=== PATIENT | female | born 1945 | race Caucasian/White ===

== ENCOUNTER 2021-03-18 22:26 | Emergency (ER) | payer MEDICARE, SELFPAY ==
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
--- NOTE | ~2021-03-18 | XR_ITS ---
EXAMINATION: XR chest 1V portable DATE: 03/18/2021 23:00 INDICATION: Shortness of breath TECHNIQUE: frontal view of the chest was obtained. 6 COMPARISON: Chest radiograph dated 08/25/2017 FINDINGS: Lung volumes are small with coarse reticular opacities scattered in the bilateral mid and lower lung zones which appear similar in extent and distribution to earlier CT dated 11/21/2013 where there is as sociated peripheral honeycombing consistent with usual interstitial pneumonia (UIP) pattern chronic i nterstitial lung disease. These appear more prominent than on the prior study which could represent e ither interval progression or superimposed more acute mild pulmonary edema or pneumonia. No pleural e ffusion or pneumothorax. Cardiomediastinal silhouette is within normal limits for AP technique. Tania cystectomy clips in right upper quadrant. Mild thoracic dextrocurvature with mild spondylosis. IMPRESSION: 1. Small lung volumes with chronic coarse reticular opacities in the bilateral mid and lower lung zon es consistent with chronic interstitial lung disease which demonstrated a UIP pattern on prior CT. Th is appears increased since the prior study which could represent either progression or superimposed p ulmonary edema or pneumonia. Reviewed, dictated and finalized at location A. IMPRESSION: 1. Small lung volumes with chronic coarse reticular opacities in the bilateral mid and lower lung zones consistent with chronic interstitial lung disease whic h demonstrated a UIP pattern on prior CT. This appears increased since the prio r study which could represent either progression or superimposed pulmonary iwona a or pneumonia.
[2021-03-18 22:28] VITALS: BP 147/90; PULSE 94; RESP 18; TEMP 36.6; O2SAT 95
[2021-03-18 23:17] LABS: Basophils Absolute Auto 0.1 K/mm3 (0.0-0.1); Basophils Percent Auto 0.9 % (0.2-1.2); Eosinophils Absolute Auto 0.4 K/mm3 (0-0.3); Eosinophils Percent Auto 4.8 % (0-4.4); Hematocrit 42.6 % (37.0-47.0); Hemoglobin 14.4 g/dL (12.0-15.0); Immature Granulocyte Absolute 0.03 K/mm3 (0.00-0.031); Immature Granulocyte Percent A 0.4 % (0-0.5); Lymphocytes Percent Auto 30.2 % (18.3-44.2); Mean Corpuscular HGB Conc 33.8 g/dl (32-36); Mean Corpuscular Hemoglobin 31.8 pg (26-34); Mean Platelet Volume 11.3 fl (7.4-10.4); Monocytes Absolute Auto 0.8 K/mm3 (0.1-0.6); Monocytes Percent Auto 9.8 % (2.6-8.5); Neutrophils Absolute Auto 4.3 K/mm3 (1.3-6.7); Neutrophils Percent Auto 53.9 % (45.5-73.1); Platelet Count Result 177 k/mm3 (150-375); Red Blood Count 4.53 M/mm3 (4.2-5.4); Red Cell Distribution Width 12.1 % (11.5-14.5); White Blood Count 7.9 K/mm3 (4.5-10.0)
[2021-03-18 23:26] LABS: Alanine Aminotransferase 17 U/L (4-35); Alkaline Phosphatase 67 U/L (38-126); Anion Gap 10 mmol/L (8-16); Aspartate Amino Transferase 35 U/L (14-36); Bilirubin,Total 0.6 mg/dL (0.2-1.3); Blood Urea Nitrogen 17 mg/dL (7-17); Calcium 9.3 mg/dL (8.4-10.2); Carbon Dioxide 23 mmol/L (22-30); Chloride 108 mmol/L (98-107); Estimated CRCL calculation 33 ml/min; Estimated Glomerular Filt Rate 40; Glucose 103 mg/dL (65-105); Potassium 4.3 mmol/L (3.4-5.0); Sodium 141 mmol/L (137-145)
[2021-03-18 23:30] LABS: INR 0.9; Partial Thromboplastin Time 26.3 SECONDS (22.3-36.8); Prothrombin Time 12.7 Seconds (11.1-14.7)
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
[2021-03-19] MEDS: SODIUM CHLORIDE 0.9% IV 500 ML 999 ML IV CONT (00:10)
[2021-03-19 00:59] LABS: Add Urine Microscopic? YES; Appearance Urine Clear (Clear); Bacteria Urine Trace /hpf; Bilirubin Urine Negative (Negative); Blood Urine Negative (Negative); Color Urine Straw (Yellow); Glucose Urine UA Negative (Negative); Ketones Urine Negative (Negative); Leukocyte Esterase Ur 1+ LEU/UL (Negative); Nitrate Urine Negative (Negative); Protein Urine Negative (Negative); RBC Urine 0-2 /hpf (0-2); Specific Grav Ur 1.012 (1.001-1.035); Squamous Epithelial Cell Urine Few /hpf (Few)
[2021-03-19] MEDS: KETOROLAC 15 MG/ML VIAL (*BKC) IV PUSH (01:08)
[2021-03-19 02:17] VITALS: BP 136/84; PULSE 78; RESP 16; TEMP 36.8; O2SAT 98
== END 2021-03-19 02:18 | disposition home or self-care (01) ==
PROVIDERS: Emergency Provider General Practice; PCP Internal Medicine
DX: R51.9 Headache, unspecified (principal); N39.0 Urinary tract infection, site not specified; J44.9 Chronic obstructive pulmonary disease, unspecified; I10 Essential (primary) hypertension; Z87.820 Personal history of traumatic brain injury; J84.10 Pulmonary fibrosis, unspecified
CPT/HCPCS: 36415; 70450; 71045; 80053; 81001; 85025; 85610; 85730; 87077; 87086; 87088; 87186; 96361; 96365; 96375; 99284; J0131; J1885; J7040

== ENCOUNTER 2023-07-14 16:32 | Emergency (ER) | payer MEDICARE, SELFPAY ==
[2023-07-14] VITALS (7 sets, daily range): BP systolic 168–201; BP diastolic 79–98; PULSE 70–91; RESP 14–21; TEMP 35.8; O2SAT 95–100
--- NOTE | ~2023-07-14 | XR_ITS ---
EXAMINATION: XR chest 2V Exam Date/Time: 07/14/2023 18:12 CDT HISTORY: SOB Comparison: . RESULT: Lines, tubes, and devices: Ringlike radiopacity seen only in the lateral view may represent a displa sharee gastric band or external artifact. Cholecystectomy clips. Lungs and pleura: Moderate diffuse reticular opacities. No focal consolidation. Cardiomediastinal silhouette: Stable. Other: No acute osseous or upper abdominal finding. IMPRESSION: No acute cardiopulmonary process. Moderate chronic interstitial lung disease. Reviewed, dictated and finalized at location K.
--- NOTE | 2023-07-14 17:36 | ECG_ITS ---
Measurements Intervals [place] Rate: 71 P: 65 MN: 227 QRS: -35 QRSD: 114 T: -3 QT: 371 QTc: 403 Interpretive Statements SINUS RHYTHM WITH SINUS ARRHYTHMIA WITH FIRST DEGREE AV BLOCK LEFT AXIS DEVIATION [QRS AXIS < -30] PATTERN CONSISTENT WITH PULMONARY DISEASE MODERATE INTRAVENTRICULAR CONDUCTION DELAY [110+ ms QRS DURATION] VOLTAGE CRITERIA FOR LVH [MEETS CRITERIA IN ONE OF: R(aVL), S(V1), R(V5), R(V5/V6)+S(V1)] NO PREVIOUS ECG AVAILABLE FOR COMPARISON Electronically Signed On 07-14-2023 19:28:43 CDT by Tari Briones M.D.
[2023-07-14 19:03] LABS: Basophils Absolute Auto 0.1 K/mm3 (0.0-0.1); Basophils Percent Auto 0.8 % (0.2-1.2); Eosinophils Absolute Auto 0.3 K/mm3 (0-0.3); Eosinophils Percent Auto 4.1 % (0-4.4); Hematocrit 36.9 % (37.0-47.0); Hemoglobin 10.5 g/dL (12.0-15.0); Immature Granulocyte Absolute 0.01 K/mm3 (0.00-0.031); Immature Granulocyte Percent A 0.1 % (0-0.5); Lymphocytes Absolute Auto 1.74 K/mm3 (0.9-3.2); Mean Corpuscular HGB Conc 28.5 g/dl (32-36); Mean Corpuscular Hemoglobin 26.1 pg (26-34); Mean Corpuscular Volume 91.6 fl (80-100); Mean Platelet Volume 10.7 fl (7.4-10.4); Monocytes Absolute Auto 0.6 K/mm3 (0.1-0.6); Monocytes Percent Auto 8.1 % (2.6-8.5); Neutrophils Absolute Auto 4.8 K/mm3 (1.3-6.7); Neutrophils Percent Auto 63.9 % (45.5-73.1); Platelet Count Result 173 k/mm3 (150-375); Red Blood Count 4.03 M/mm3 (4.2-5.4); Red Cell Distribution Width 13.4 % (11.5-14.5); White Blood Count 7.6 K/mm3 (4.5-10.0)
[2023-07-14 19:17] LABS: Alanine Aminotransferase 15 U/L (6-35); Albumin Level 4.2 g/dL (3.5-5.1); Alkaline Phosphatase 73 U/L (38-126); Anion Gap 6 mmol/L (8-16); Aspartate Amino Transferase 28 U/L (14-36); Bilirubin,Total 0.6 mg/dL (0.2-1.3); Blood Urea Nitrogen 16 mg/dL (7-17); Calcium 8.8 mg/dL (8.4-10.2); Carbon Dioxide 25 mmol/L (22-30); Chloride 106 mmol/L (98-107); Estimated CRCL calculation 49 ml/min; Estimated Glomerular Filt Rate > 60; Glucose 92 mg/dL (65-110); Potassium 4.1 mmol/L (3.4-5.0); Sodium 137 mmol/L (137-145)
[2023-07-14 19:46] LABS: Hypochromasia 1+ (NORMAL); Platelet Estimate Adequate (Adequate); Schistocytes None Seen (NORMAL)
[2023-07-14] MEDS: ALBUTEROL SULFATE NEB 2.5 MG/3 ML INH 5 MG INHALATION (21:56)
[2023-07-14] MEDS: IPRATROPIUM BR 0.02% INH SOLN 0.5 MG/2.5 ML VIAL INHALATION (21:58)
[2023-07-14 22:05] LABS: NT Pro B Type Natriuretic Pept 242 pg/mL (19.9-100); Troponin I < 0.012 ng/mL (0.000-0.034)
[2023-07-14 22:07] LABS: Appearance Urine Cloudy (Clear); Bacteria Urine 4+ /hpf; Bilirubin Urine Negative (Negative); Blood Urine Negative (Negative); Color Urine Yellow (Yellow); Glucose Urine UA Negative (Negative); Ketones Urine Trace mg/dL (Negative); Leukocyte Esterase Ur 1+ LEU/UL (Negative); Nitrate Urine Positive (Negative); Non Pathogenic Casts 0-2; Protein Urine Negative (Negative); RBC Urine 0-2 /hpf (0-2); Specific Grav Ur 1.016 (1.001-1.035); Squamous Epithelial Cell Urine None seen /hpf (Few); pH Urine 7.5 (5.0-9.0)
[2023-07-14] MEDS: SODIUM CHLORIDE 0.9% IV 1,000 ML 999 ML IV CONT (22:13)
[2023-07-14 22:15] LABS: Add Urine Microscopic? YES
[2023-07-14 22:37] LABS: Influenza A QL RT-PCR Negative (Negative); Influenza B QL RT-PCR Negative (Negative); RSV RNA, RT-PCR Negative (Negative); SARS-CoV-2 RNA PCR Negative (Negative)
--- NOTE | 2023-07-14 23:35 | ED.GENADULT ---
HPI - General Adult General Chief complaint: Shortness of Breath/Dyspnea Stated complaint: SOB, headache Time Seen by Provider: 07/14/23 21:28 History of Present Illness HPI narrative: this is a 70-year-old female presenting ED with chief complaint of not feeling well x3 months. Patient says that she has been having decreased appetite, occasional dizziness and has been slightly more short of breath than usual. 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 Patient also notes that she has had increased urinary urgency and frequency. Patient was seen at the primary care physician earlier today and was found have high blood pressure. She was then sent to the emergency department for evaluation Related Data Allergies Allergy/AdvReac Type Severity Reaction Status Date / Time fenofibrate Allergy Mild Unknown Verified 07/14/23 21:02 erythromycin base Allergy Unknown STOMACH Verified 07/14/23 21:02 PAIN trichloroacetic acid Allergy Unknown Unknown Verified 07/14/23 21:02 morphine AdvReac Severe Nausea and Verified 07/14/23 21:02 Vomiting PMFSH Past Medical History Medical History COPD (chronic obstructive pulmonary disease) Hypertension Pulmonary fibrosis Traumatic brain injury Surgical History Surgical History (Updated 03/18/21 @ 23:35 by Nalini Prado MD) Hx of cholecystectomy Social History Social History Smoking status: Never smoker Alcohol intake: never Substance use: never Exam Narrative: APPEARANCE: No apparent distress. Head: atraumatic. EYES: EOMI, NOSE: Atraumatic NECK: Trachea midline RESPIRATORY: no increased rate of breathing, speaking in full sentences, crackles in the lung bases CARDIOVASCULAR: RRR, no peripheral edema ABDOMINAL: Non-distended soft nontender no guarding or rebound MUSCULOSKELETAl: No obvious deformities NEURO: Alert. Moving 4/4 extremities SKIN:: Warm, dry. Normal color PSYCHIATRIC: Normal affect Course Vital Signs Vital signs: Vital Signs Temperature 96.4 F L 07/14/23 17:28 Pulse Rate 85 07/14/23 17:28 Respiratory Rate 14 07/14/23 17:28 Blood Pressure 168/79 H 07/14/23 17:28 Pulse Oximetry 100 07/14/23 17:28 Oxygen Delivery Room Air 07/14/23 17:28 Temperature 96.4 F L 07/14/23 17:28 Pulse Rate 85 07/14/23 23:27 Respiratory Rate 17 07/14/23 23:27 Blood Pressure 177/90 H 07/14/23 23:27 Pulse Oximetry 96 07/14/23 23:27 Oxygen Delivery Room Air 07/14/23 20:54 Medical Decision Making MDM Narrative Medical decision making narrative: -Course: 70-year-old female presenting with 3 months of vague symptomatology. She does have some crackles in her lower lung bases which are likely due to her pulmonary fibrosis. Patient was given a breathing treatment with improvement in her symptoms. She is also found to have a urinary tract infection. Patient be discharged appropriate treatment and primary care follow-up. -DDX includes but is not limited to: COPD exacerbation,, pulmonary fibrosis, viral syndrome, pneumonia, urinary tract infection - factors complicating care: COPD, pulmonary fibrosis, hypertension, TBI -Social determinants of health: retired, lives with her daughter -Hx from independent Sources: daughter bedside -Independent interpretation of studies: CBC showed hemoglobin 10.5 with a normal MCV. This is 4 points lower than are latest record from 2 years ago. This can follow-up on an outpatient basis. Metabolic panel normal. Urine indicative of infection. Viral swabs negative. Chest x-ray shows chronic interstitial lung disease. Independent EKG interpretation: Rhythm [sinus], Rate [71], Thor -[normal], MD -prolonged, QRS [narrow], QTC [normal], T waves -lead III/AVF, ST Segments - [Negative for concerning elevations] Final interpretations: Normal sinu
[2023-07-15 00:24] VITALS: BP 175/73; PULSE 77; RESP 19; O2SAT 100
== END 2023-07-15 00:24 | disposition home or self-care (01) ==
PROVIDERS: Student in an Organized Health Care Education/Training Program; Emergency Provider Emergency Medicine; PCP Nurse Practitioner Family
DX: J44.9 Chronic obstructive pulmonary disease, unspecified (principal); N39.0 Urinary tract infection, site not specified; D64.9 Anemia, unspecified; Z20.822 Contact with and (suspected) exposure to COVID-19; J84.10 Pulmonary fibrosis, unspecified; I10 Essential (primary) hypertension; Z87.820 Personal history of traumatic brain injury; Z90.49 Acquired absence of other specified parts of digestive tract; I44.0 Atrioventricular block, first degree; I45.9 Conduction disorder, unspecified
CPT/HCPCS: 36415; 71046; 80053; 81001; 83880; 84484; 85025; 87077; 87086; 87186; 87637; 93005; 94640; 96361; 96374; 99284; J1100; J7030

== ENCOUNTER 2023-10-06 08:57 | Observation (INO) | payer MEDICARE, SELFPAY ==
[2023-10-06] VITALS (39 sets, daily range): BP systolic 122–184; BP diastolic 60–84; PULSE 64–107; RESP 13–30; TEMP 36.4–36.7; O2SAT 91–100
--- NOTE | ~2023-10-06 | CT_ITS ---
EXAMINATION: CT cervical spine wo con DATE: 10/06/2023 10:01 INDICATION: Neck pain after fall there is levoscoliosis. TECHNIQUE: Computed tomography (CT) of the cervical spine was performed without intravenous contrast. The dose-length product was 192 mGy-cm. COMPARISON: None FINDINGS: Normal cervical lordosis. Craniovertebral junction is normal. No evidence for perched facet . Odontoid process is normal. There is degenerative anterolisthesis at C5-6, C6-7 and C7-T1 there is multilevel facet and to a lesser degree uncinate hypertrophy. There is pleural-parenchymal scarring a t the lung apices. No significant paraspinal soft tissue abnormality.. IMPRESSION: 1. No acute abnormality of the cervical spine. 2: Moderate cervical spondylosis with levoscoliosis. Reviewed, dictated and finalized at location B. CHER
--- NOTE | ~2023-10-06 | CT_ITS ---
EXAMINATION: CT abdomen pelvis w con DATE: 10/06/2023 10:47 INDICATION: Flank pain. Hip pain. TECHNIQUE: Computed tomography (CT) of the abdomen and pelvis was performed with 100 cc Omnipaque 350 intravenous contrast. The dose-length product was 372.01 mGy-cm. Automated exposure control and iter ative reconstruction technique were employed. COMPARISON: 08/26/2012 FINDINGS: There is chronic interstitial fibrosis in the lung bases. Enlarged pulmonary arteries consi stent with pulmonary arterial hypertension. No significant pleural or pericardial effusion. Status po st cholecystectomy with expected prominence of the bile ducts. The spleen, pancreas, adrenal glands a nd kidneys are unremarkable. Nonobstructive bowel pattern. No abnormal pelvic masses or fluid collect ions. Mild superior plate compression fracture of L3 and L2, likely chronic. Mild thoracic and lumbar spondylosis. There is a small exophytic liver cyst containing layering calcification, likely of no s ignificance significance. IMPRESSION: 1. No acute abdominal abnormality. 2: Chronic interstitial fibrosis with pulmonary arterial hypertension. Reviewed, dictated and finalized at location B. ATTENDANT
--- NOTE | ~2023-10-06 | XR_ITS ---
XR chest 1V 10/06/2023 09:55 Indication: Status post fall. Procedure: AP portable chest Comparison: Comparison to multiple prior studies sequentially, with oldest reviewed study dated 08/11. Findings: Chronic coarse bilateral interstitial infiltrates. Possible small effusions. Stable mild ca rdiomegaly. No pneumothorax. No acute osseous abnormality. Impression: 1: Stable coarse bilateral interstitial infiltrates which may represent scarring/fibrosis or atypical pneumonia. Reviewed, dictated and finalized at location B. R/OPERATOR Impression: 1: Stable coarse bilateral interstitial infiltrates which may represent scarrin g/fibrosis or atypical pneumonia.
--- NOTE | ~2023-10-06 | XR_ITS ---
XR hip RT 2V w AP pelvis 10/06/2023 09:55 Indication: Right hip pain after fall Procedure: AP pelvis and 2 views right hip Comparison: No prior studies for comparison. Findings: Mild osteoarthritis of the hips. No fracture or traumatic malalignment. Pelvic rings are in tact. Sacral foramen are symmetric. Impression: 1: No acute fracture. Reviewed, dictated and finalized at location B. S PULLER Impression: 1: No acute fracture.
--- NOTE | ~2023-10-06 | CT_ITS ---
EXAMINATION: CT thoracic lumbar wo con DATE: 10/06/2023 10:01 INDICATION: Back pain after fall TECHNIQUE: Computed tomography (CT) of the thoracic and lumbar spine was performed without intravenou s contrast. The dose-length product was 1458.12 mGy-cm. Automated exposure control and iterative alonso nstruction technique were employed. COMPARISON: CT dated 11/21/2013 FINDINGS: Thoracic spine: There is dextroscoliosis. Mild multilevel thoracic spondylosis. No acute thoracic spi ne fracture. There are coarse interstitial infiltrates peripherally with interlobular septal thickeni ng and honeycombing, consistent with chronic fibrosis. There is atherosclerosis of the aorta and barbara nary arteries. Lumbar spine: There are mild superior endplate compression fractures of L2 and L3. There is disc narr owing at L4-5 and L5-S1. There is levoscoliosis. IMPRESSION: 1. Age-indeterminate superior endplate compression fractures of L2 and L3, new since CT dated 012. 2: Moderate thoracic and lumbar spondylosis with scoliosis. 3: Chronic interstitial fibrosis. Reviewed, dictated and finalized at location B. RATION CHECKER IMPRESSION: 1. Age-indeterminate superior endplate compression fractures of L2 and L3, new since CT dated 08/26/2012. 2: Moderate thoracic and lumbar spondylosis with scoliosis. 3: Chronic interstitial fibrosis.
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
--- NOTE | 2023-10-06 09:04 | ECG_ITS ---
Measurements Intervals [place] Rate: 80 P: 21 CT: 217 QRS: -35 QRSD: 111 T: 127 QT: 361 QTc: 418 Interpretive Statements SINUS RHYTHM WITH FIRST DEGREE AV BLOCK MARKED LEFT AXIS DEVIATION [QRS AXIS < -30] MODERATE INTRAVENTRICULAR CONDUCTION DELAY [110+ ms QRS DURATION] VOLTAGE CRITERIA FOR LVH [MEETS CRITERIA IN ONE OF: R(aVL), S(V1), R(V5), R(V5/V6)+S(V1)] MODERATE T-WAVE ABNORMALITY, CONSIDER LATERAL ISCHEMIA [-0.1+ mV T WAVE IN I/aVL/V5/V6] COMPARED TO ECG 07/14/2023 18:54:26 NO SIGNIFICANT CHANGES Electronically Signed On 10-06-2023 20:52:03 REEL TENDER by [place] Humphrey M.D.
--- NOTE | 2023-10-06 09:21 | ED.FALL ---
HPI - Fall General Chief Complaint: Fall <Kailey Romero PA-C - Last Filed: 10/06/23 13:40> Stated Complaint: fall - hip and back pain <NEETU Davalos Last Filed: 10/06/23 13:40> Time Seen by Provider: 10/06/23 09:07 <Kailey Romero PA-C - Last Filed: 10/06/23 13:40> Source: patient and family <NEETU Davalos Last Filed: 10/06/23 13:40> Mode of arrival: EMS <NEETU Davalos Last Filed: 10/06/23 13:40> Limitations: other (history of TBI) <NEETU Davalos Last Filed: 10/06/23 13:40> History of Present Illness HPI Narrative: This is a 78 year old female that presents to the ER after a fall last night. Reports she felt dizzy and ran into the door jam. Reports falling onto her right side. Reports right hip pain and back pain. Her got her into bed last night and gave her some Ibuprofen. She was stilling having discomfort this morning which prompted him to call EMS. She is not able to further describe her dizziness. Denies fever, chest pain, shortness of breath, vomiting, focal numbness or weakness. <NEETU Davalos Last Filed: 10/06/23 13:40> Related Data Home Medications: Home Medications Medication Instructions Recorded Confirmed atorvastatin 10 mg tablet mg 10/06/23 <NEETU Davalos Last Filed: 10/06/23 13:40> Allergies/Adverse Reactions: Allergies Allergy/AdvReac Type Severity Reaction Status Date / Time fenofibrate Allergy Mild Unknown Verified 10/06/23 16:18 erythromycin base Allergy Unknown STOMACH Verified 10/06/23 16:18 PAIN trichloroacetic acid Allergy Unknown Unknown Verified 10/06/23 16:18 morphine AdvReac Severe Nausea and Verified 10/06/23 16:18 Vomiting <NEETU Davalos Last Filed: 10/06/23 13:40> Review of Systems Review of Systems: CONSTITUTIONAL: Denies fever CARDIOVASCULAR: Denies chest pain, palpitations, or edema. RESPIRATORY: Denies dyspnea. GASTROINTESTINAL: Denies vomiting MUSCULOSKELETAL: Reports back pain, joint pain, and myalgia. NEUROLOGIC: Denies numbness, or weakness. <Kailey Romero PA-C - Last Filed: 10/06/23 13:40> All systems reviewed & are unremarkable except as noted in HPI and below <Kailey Romero PA-C - Last Filed: 10/06/23 13:40> PMFSH Past Medical History Medical History: Medical History COPD (chronic obstructive pulmonary disease) Hypertension Pulmonary fibrosis Traumatic brain injury <NEETU Davalos Last Filed: 10/06/23 13:40> Surgical History Surgical History: Surgical History (Updated 03/18/21 @ 23:35 by Nalini Prado MD) Hx of cholecystectomy <Kailey Romero PA-C - Last Filed: 10/06/23 13:40> Social History Social History: Social History Smoking status: Never smoker Alcohol intake: never Substance use: never Do You Feel Safe in your Home?: Yes Lack of Transportation: YES Lack of Food: Never True Current Housing: I Have Housing Concerned About Future Housing: No Difficulty Paying Gas/Electric Bills: No Difficulty Paying for Meds: No Currently Unemployed: No Education: High School Diploma/GED Difficulty w/ Childcare or Family Care: No Spiritual care concerns: No <Kailey Romero PA-C - Last Filed: 10/06/23 13:40> Exam Narrative: GENERAL: Elderly, well-nourished, and in no acute distress. HEAD: Normocephalic, atraumatic. EYES: PERRLA and EOMI. ENT: Nares clear, no rhinorrhea or epistaxis. Mucous membranes moist. Oropharynx without tonsillar hypertrophy exudate or other lesions. Bilateral TMs pearly robert non-bulging NECK: Supple. No adenopathy or masses. CHEST: Clear to auscultation. No respiratory distress. No wheezes rales or rhonchi HEART: Regular rate and rhythm. No murmur heard. Normal peripheral pulses. ABDOMEN: Soft, nontender, nondistende
[2023-10-06 10:09] LABS: Basophils Percent Auto 0.3 % (0.2-1.2); Eosinophils Absolute Auto 0.1 K/mm3 (0-0.3); Eosinophils Percent Auto 1.3 % (0-4.4); Hematocrit 38.5 % (37.0-47.0); Hemoglobin 12.4 g/dL (12.0-15.0); Immature Granulocyte Absolute 0.03 K/mm3 (0.00-0.031); Immature Granulocyte Percent A 0.3 % (0-0.5); Lymphocytes Absolute Auto 0.86 K/mm3 (0.9-3.2); Lymphocytes Percent Auto 9.6 % (18.3-44.2); Mean Corpuscular HGB Conc 32.2 g/dl (32-36); Mean Corpuscular Volume 90.2 fl (80-100); Mean Platelet Volume 10.2 fl (7.4-10.4); Monocytes Absolute Auto 0.6 K/mm3 (0.1-0.6); Monocytes Percent Auto 6.6 % (2.6-8.5); Neutrophils Absolute Auto 7.4 K/mm3 (1.3-6.7); Neutrophils Percent Auto 81.9 % (45.5-73.1); Platelet Count Result 148 k/mm3 (150-375); Red Blood Count 4.27 M/mm3 (4.2-5.4); Red Cell Distribution Width 15.8 % (11.5-14.5)
[2023-10-06 10:20] LABS: Alanine Aminotransferase 15 U/L (6-35); Albumin Level 3.5 g/dL (3.5-5.1); Alkaline Phosphatase 84 U/L (38-126); Anion Gap 6 mmol/L (8-16); Aspartate Amino Transferase 28 U/L (14-36); Bilirubin,Total 0.9 mg/dL (0.2-1.3); Blood Urea Nitrogen 12 mg/dL (7-17); Calcium 8.8 mg/dL (8.4-10.2); Carbon Dioxide 27 mmol/L (22-30); Chloride 104 mmol/L (98-107); Estimated CRCL calculation 49 ml/min; Estimated Glomerular Filt Rate > 60; Glucose 106 mg/dL (65-110); Potassium 3.9 mmol/L (3.4-5.0); Sodium 137 mmol/L (137-145)
[2023-10-06 10:21] LABS: Partial Thromboplastin Time 28.2 SECONDS (22.3-36.8)
[2023-10-06 10:49] LABS: Appearance Urine Clear (Clear); Bilirubin Urine Negative (Negative); Blood Urine Negative (Negative); Color Urine Yellow (Yellow); Glucose Urine UA Negative (Negative); Ketones Urine 1+ mg/dL (Negative); Leukocyte Esterase Ur Negative LEU/UL (Negative); Nitrate Urine Negative (Negative); Protein Urine Negative (Negative); Specific Grav Ur 1.019 (1.001-1.035); Urobilinogen Urine 0.2 mg/dL (<2.0); pH Urine 7.5 (5.0-9.0)
[2023-10-06 10:50] LABS: Add Urine Microscopic? NO
[2023-10-06 10:50] LABS: Influenza A QL RT-PCR Negative (Negative); Influenza B QL RT-PCR Negative (Negative); SARS-CoV-2 RNA PCR Negative (Negative)
[2023-10-06] MEDS: PROCHLORPERAZINE EDISYLATE 10 MG/2 ML VIAL IV PUSH (10:54)
[2023-10-06] MEDS: HYDROcodone/acetaminophen (*CRX) 5-325 MG TABLET 1 TAB PO (11:38)
[2023-10-06] MEDS: ACETAMINOPHEN 325 MG TABLET 650 MG PO (11:39)
--- NOTE | 2023-10-06 14:51 | PC.NURSE ---
called pt @0128 to notify of bed assignment per pt request but no voicemail was set up and no answer
--- NOTE | 2023-10-06 15:50 | ADMGEN ---
This patient, Miriam Pereira, was admitted to 2 Medical Room 245-01. Patient/family oriented to hospital policies and general routines including ID bracelet, bed and alarms, visiting hours, pain management, procedures, bathroom and other care routines, personal items, smoking policy, room service/diet, and visiting hours. Information on how to activate the Rapid Response Team has been discussed. Patient/Family are encouraged to report perceived risks to care and to ask questions if they do not understand what they are told or what they should do.
[2023-10-06 20:42] LABS: Troponin I 0.016 ng/mL (0.000-0.034)
--- NOTE | 2023-10-06 21:51 | PM.IMHP ---
H&P: HPI History of Present Illness Date/Time: 10/06/23 21:51 Chief Complaint: dizziness and fall Narrative: A pleasant 78F who complains of fall at home after feeling dizzy. She was standing, picking up a gatorade bottle when she felt dizzy and stumbled, hitting her back against a door frame. She denies seizure activity, loss of consciousness or other symptoms. Her only complaint now is a sore back, she points to her upper mid back. In [facility] her troponin was negative x2. EKG without acute ischemia or blocks. Imaging w/o acute abnormalities included cxr, hip/pelvix xr, head ct, cervical spine CT and abdomen pelvis CT. A lumbar spine CT demonstrated age indeterminate superior endplate compression fractures of L2 and L3, new since CT dated 08/26/2012. Review of Systems Review of Systems: All systems reviewed & are unremarkable except as noted in HPI and below (HPI) [facility] Past Medical History Medical History COPD (chronic obstructive pulmonary disease) Hypertension Pulmonary fibrosis Traumatic brain injury Surgical History Surgical History (Updated 03/18/21 @ 23:35 by Nalini Prado MD) Hx of cholecystectomy Social History Social History Smoking status: Never smoker Alcohol intake: never Substance use: never Do You Feel Safe in your Home?: Yes Lack of Transportation: YES Lack of Food: Never True Current Housing: I Have Housing Concerned About Future Housing: No Difficulty Paying Gas/Electric Bills: No Difficulty Paying for Meds: No Currently Unemployed: No Education: High School Diploma/GED Difficulty w/ Childcare or Family Care: No Spiritual care concerns: No Meds Home Medications and Allergies Home Medications Medication Instructions Recorded Confirmed Type atorvastatin 10 mg tablet (Lipitor) 10 mg PO DAILY 10/06/23 10/06/23 History Allergies Allergy/AdvReac Type Severity Reaction Status Date / Time fenofibrate Allergy Mild Unknown Verified 10/06/23 16:18 erythromycin base Allergy Unknown STOMACH Verified 10/06/23 16:18 PAIN trichloroacetic acid Allergy Unknown Unknown Verified 10/06/23 16:18 morphine AdvReac Severe Nausea and Verified 10/06/23 16:18 Vomiting Vital Signs Vital Signs - 24 hr 10/06/23 09:11 10/06/23 09:31 10/06/23 10:02 Temperature 97.6 F Pulse Rate 75 81 65 Respiratory Rate 16 20 20 Blood Pressure 167/84 H 149/83 H 184/76 H Pulse Oximetry 95 98 97 Oxygen Delivery 10/06/23 10:31 10/06/23 10:54 10/06/23 11:01 Temperature Pulse Rate 77 77 82 Respiratory Rate 20 20 22 H Blood Pressure 164/76 H 178/78 H 159/74 H Pulse Oximetry 97 94 95 Oxygen Delivery 10/06/23 11:02 10/06/23 11:15 10/06/23 11:30 Temperature Pulse Rate 85 86 88 Respiratory Rate 22 H 23 H 22 H Blood Pressure Pulse Oximetry 94 94 Oxygen Delivery 10/06/23 11:31 10/06/23 11:44 10/06/23 11:44 Temperature Pulse Rate 87 90 98 Respiratory Rate 23 H Blood Pressure 175/79 H 172/75 H 165/84 H Pulse Oximetry 97 Oxygen Delivery 10/06/23 11:47 10/06/23 11:32 10/06/23 11:44 Temperature Pulse Rate 107 H 86 88 Respiratory Rate 23 H 21 H Blood Pressure 122/79 172/75 H Pulse Oximetry 95 93 Oxygen Delivery 10/06/23 11:45 10/06/23 11:47 10/06/23 11:48 Temperature Pulse Rate 92 105 H 107 H Respiratory Rate 22 H 30 H 24 H Blood Pressure 165/84 H 122/79 Pulse Oximetry 93 Oxygen Delivery 10/06/23 11:49 10/06/23 12:00 10/06/23 12:01 Temperature Pulse Rate 101 H 81 78 Respiratory Rate 28 H 21 H 20 Blood Pressure 158/64 H Pulse Oximetry 97 Oxygen Delivery 10/06/23 12:15 10/06/23 12:30 10/06/23 12:31 Temperature Pulse Rate 72 75 73 Respiratory Rate 15 19 17 Blood Pressure 151/66 H Pulse Oximetry 100 100 Oxygen Delivery 10/06/23 12:32 10/06/23 12:45 10/06/23
[2023-10-07] VITALS (13 sets, daily range): BP systolic 121–174; BP diastolic 55–82; PULSE 64–103; RESP 16–20; TEMP 36.2–36.6; O2SAT 84–93; BMI 26.4
[2023-10-07] MEDS: traMADol HCL (*CRX) 25 MG TABLET PO ×3 (00:06→20:06)
[2023-10-07] MEDS: LABETALOL HCL INJ 100 MG/20 ML VIAL 10 MG IV PUSH (04:52)
[2023-10-07 05:45] LABS: Hematocrit 37.9 % (37.0-47.0); Hemoglobin 12.4 g/dL (12.0-15.0); Mean Corpuscular HGB Conc 32.7 g/dl (32-36); Mean Corpuscular Hemoglobin 29.3 pg (26-34); Mean Corpuscular Volume 89.6 fl (80-100); Mean Platelet Volume 10.9 fl (7.4-10.4); Platelet Count Result 148 k/mm3 (150-375); Red Blood Count 4.23 M/mm3 (4.2-5.4); Red Cell Distribution Width 15.5 % (11.5-14.5); White Blood Count 7.8 K/mm3 (4.5-10.0)
[2023-10-07 05:57] LABS: Anion Gap 7 mmol/L (8-16); Blood Urea Nitrogen 9 mg/dL (7-17); Calcium 8.5 mg/dL (8.4-10.2); Carbon Dioxide 26 mmol/L (22-30); Chloride 102 mmol/L (98-107); Estimated CRCL calculation 49 ml/min; Estimated Glomerular Filt Rate > 60; Glucose 100 mg/dL (65-110); Potassium 3.6 mmol/L (3.4-5.0); Sodium 135 mmol/L (137-145)
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
[2023-10-07] MEDS: ATORVASTATIN 10 MG TABLET PO (09:18)
[2023-10-07] MEDS: LIDOCAINE 5% PATCH 1 PATCH TRANSDERM (09:30)
--- NOTE | 2023-10-07 09:44 | PCOTNOTE ---
Pt has bedrest orders and a neuro consult pending. Will continue to follow for occupational therapy.
--- NOTE | 2023-10-07 14:13 | PCPTNOTE ---
Attempted PT evaluation, Pt has bedrest orders and a neuro consult pending. Will follow
--- NOTE | 2023-10-07 17:19 | WPDNEUROSGCN ---
Assessment and Plan Assessment and plan (1) Lumbar compression fracture: Code(s): S32.000A - Wedge compression fracture of unspecified lumbar vertebra, initial encounter for closed fracture Status: Acute Plan Ms. Pereira is a 78-year-old female who was found to have L2 and L3 compression fractures on workup for back pain which she developed after a fall 2 days ago. She does not any radicular pain or paresthesias in the legs, and she is neurologically intact on physical exam. CT lumbar spine shows compression fractures at L2 and L3 with about 20% loss of height and no kyphosis or retropulsion. I called [facility] this morning to have her fitted for an LSO brace which has already been completed. She should wear this brace when she is up and walking but does not need it when in bed. I recommend that she work with physical therapy while she is in the hospital. I will arrange for follow-up with us in clinic within the next couple months with x-rays immediately prior to that appointment Consult date: 10/07/23 HPI: Miriam Pereira is a 78 year old female with history of COPD, hypertension, pulmonary fibrosis who presented to the ER last night with back pain. On Wednesday, she had a fall after becoming dizzy from moving a heavy object. She fell onto her backside into the wall and also hit her head. Her family got her up to bed, but she immediately had lower back pain. She decided to go to the ER on Wednesday when her pain was persistent. She currently describes pain in the lower back which is present with activity. She denies any radicular pain or paresthesias into the legs. She denies any weakness in her legs or bowel or bladder changes. She does note a previous fall month ago as well. Review of Systems Review of Systems: All systems reviewed & are unremarkable except as noted in HPI and below PMFSH Past Medical History Medical History COPD (chronic obstructive pulmonary disease) Hypertension Pulmonary fibrosis Traumatic brain injury Surgical History Surgical History (Updated 03/18/21 @ 23:35 by Nalini Prado MD) Hx of cholecystectomy Social History Social History Smoking status: Never smoker Alcohol intake: never Substance use: never Do You Feel Safe in your Home?: Yes Lack of Transportation: YES Lack of Food: Never True Current Housing: I Have Housing Concerned About Future Housing: No Difficulty Paying Gas/Electric Bills: No Difficulty Paying for Meds: No Currently Unemployed: No Education: High School Diploma/GED Difficulty w/ Childcare or Family Care: No Spiritual care concerns: No Meds Home Medications and Allergies Home Medications Medication Instructions Recorded Confirmed Type atorvastatin 10 mg tablet (Lipitor) 10 mg PO DAILY 10/06/23 10/06/23 History Allergies Allergy/AdvReac Type Severity Reaction Status Date / Time fenofibrate Allergy Mild Unknown Verified 10/06/23 16:18 erythromycin base Allergy Unknown STOMACH Verified 10/06/23 16:18 PAIN trichloroacetic acid Allergy Unknown Unknown Verified 10/06/23 16:18 morphine AdvReac Severe Nausea and Verified 10/06/23 16:18 Vomiting Vital Signs Vital Signs - 24 hr 10/06/23 20:52 10/06/23 20:00 10/06/23 20:00 Temperature 98.0 F Pulse Rate 86 78 87 Respiratory Rate 17 18 Blood Pressure 157/69 H Pulse Oximetry 91 92 Oxygen Delivery Room Air 10/07/23 00:00 10/07/23 04:03 10/07/23 04:04 Temperature 97.6 F Pulse Rate 81 91 Respiratory Rate 16 Blood Pressure 174/82 H 172/72 H Pulse Oximetry 90 Oxygen Delivery 10/07/23 05:37 10/07/23 04:00 10/07/23 09:30 Temperature Pulse Rate 93 Respiratory Rate Blood Pressure 135/55 L Pulse Oximetry Oxygen Delivery Room Air 10/07/23 08:00 10/07/23 12:00 10/07/23 13:57 Tem
[2023-10-08] VITALS (16 sets, daily range): BP systolic 107–148; BP diastolic 55–83; PULSE 68–122; RESP 18–20; TEMP 36.3–36.7; O2SAT 87–96
[2023-10-08] MEDS: traMADol HCL (*CRX) 25 MG TABLET PO ×2 (04:17→23:12)
[2023-10-08 05:51] LABS: Basophils Absolute Auto 0.1 K/mm3 (0.0-0.1); Basophils Percent Auto 0.7 % (0.2-1.2); Eosinophils Absolute Auto 0.3 K/mm3 (0-0.3); Eosinophils Percent Auto 3.8 % (0-4.4); Hemoglobin 12.9 g/dL (12.0-15.0); Immature Granulocyte Absolute 0.01 K/mm3 (0.00-0.031); Immature Granulocyte Percent A 0.1 % (0-0.5); Immature Platelet Fraction Pct 5.8 % (0.9-11.2); Lymphocytes Absolute Auto 1.11 K/mm3 (0.9-3.2); Lymphocytes Percent Auto 15.2 % (18.3-44.2); Mean Corpuscular HGB Conc 33.1 g/dl (32-36); Mean Corpuscular Hemoglobin 29.3 pg (26-34); Mean Corpuscular Volume 88.6 fl (80-100); Mean Platelet Volume 10.4 fl (7.4-10.4); Neutrophils Absolute Auto 4.9 K/mm3 (1.3-6.7); Neutrophils Percent Auto 67.2 % (45.5-73.1); Platelet Count Result 140 k/mm3 (150-375); Red Cell Distribution Width 15.3 % (11.5-14.5); White Blood Count 7.3 K/mm3 (4.5-10.0)
[2023-10-08 06:03] LABS: Alanine Aminotransferase 12 U/L (6-35); Albumin Level 3.4 g/dL (3.5-5.1); Alkaline Phosphatase 83 U/L (38-126); Anion Gap 6 mmol/L (8-16); Aspartate Amino Transferase 25 U/L (14-36); Bilirubin,Total 0.9 mg/dL (0.2-1.3); Blood Urea Nitrogen 11 mg/dL (7-17); Calcium 8.6 mg/dL (8.4-10.2); Carbon Dioxide 27 mmol/L (22-30); Chloride 101 mmol/L (98-107); Estimated CRCL calculation 49 ml/min; Estimated Glomerular Filt Rate > 60; Glucose 103 mg/dL (65-110); Magnesium 1.9 mg/dL (1.6-2.3); Potassium 3.7 mmol/L (3.4-5.0); Sodium 134 mmol/L (137-145)
[2023-10-08] MEDS: ATORVASTATIN 10 MG TABLET PO (09:40)
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
--- NOTE | 2023-10-08 14:28 | HOMEO2EVAL ---
Evaluation was performed at [facility] Home Oxygen Evaluation RC: Home Oxygen (O2) Evaluation Start: 10/08/23 13:18 Freq: ONCE Status: Active Protocol: RPE Activity Type Activity Date Activity User E-sign Co-sign Detail Recorded Client Recorded Date Recorded By Document 10/08/23 14:10 [employer] [id number] 10/08/23 14:28 DJO Document 10/08/23 14:15 DJO [id number] 10/08/23 14:28 DJO Document 10/08/23 14:20 [employer] [id number] 10/08/23 14:28 DJO 10/08/23 10/08/23 10/08/23 14:10 14:15 14:20 Home O2 Evaluation [Oxygen] -Test Phase Resting Exercise Resting -Oxygen Delivery Room Air Room Air [Pulse Oximetry] -Pulse Oximetry (90-100 %) 95 91 95 [Pulse Rate] -Pulse Rate (60-100 beats/min) 70 86 68
--- NOTE | 2023-10-08 14:29 | PCRTNOTE ---
HOME O2 EVAL COMPLETE, NO REQUIREMENTS
[2023-10-09] VITALS (12 sets, daily range): BP systolic 108–171; BP diastolic 52–75; PULSE 63–106; RESP 18; TEMP 36.3–36.8; O2SAT 93–98
[2023-10-09] MEDS: ACETAMINOPHEN 325 MG TABLET 650 MG PO ×2 (08:20→23:32)
[2023-10-09] MEDS: ATORVASTATIN 10 MG TABLET PO (08:20)
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
[2023-10-09] MEDS: AZELASTINE HCL NASAL 0.1% 137 MCG/SPR 30 ML BTL 1 SPRAY NASAL (20:39)
[2023-10-10] VITALS: PULSE 67
[2023-10-10 04:00] VITALS: PULSE 49
[2023-10-10 06:00] VITALS: BP 160/69; PULSE 60; RESP 18; TEMP 36.5; O2SAT 97
[2023-10-10 08:00] VITALS: PULSE 52
[2023-10-10] MEDS: AZELASTINE HCL NASAL 0.1% 137 MCG/SPR 30 ML BTL 1 SPRAY NASAL (08:44)
[2023-10-10] MEDS: ATORVASTATIN 10 MG TABLET PO (08:45)
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
== END 2023-10-10 14:13 | disposition home or self-care (01) ==
LOC: ANHED 13:26 → ANH3MEDSUR 14:53 → ANH2MED 15:05 → ANH3MEDSUR 10-13 08:27
PROVIDERS: Emergency Medicine; General Practice; Admitting Provider Internal Medicine; Emergency Provider Physician Assistant; PCP Nurse Practitioner Family; Visit Provider Internal Medicine
DX: S32.020A Wedge compression fracture of second lumbar vertebra, initial encounter for closed fracture (principal); S32.030A Wedge compression fracture of third lumbar vertebra, initial encounter for closed fracture; W18.30XA Fall on same level, unspecified, initial encounter; M54.9 Dorsalgia, unspecified; R42 Dizziness and giddiness; M16.0 Bilateral primary osteoarthritis of hip; M47.812 Spondylosis without myelopathy or radiculopathy, cervical region; J44.9 Chronic obstructive pulmonary disease, unspecified; I10 Essential (primary) hypertension; I27.20 Pulmonary hypertension, unspecified; J84.10 Pulmonary fibrosis, unspecified; Z87.820 Personal history of traumatic brain injury; Z79.899 Other long term (current) drug therapy
CPT/HCPCS: 36415; 70450; 71045; 72125; 72128; 72131; 73502; 74177; 80048; 80053; 81003; 83735; 84484; 85025; 85027; 85055; 85610; 85730; 87636; 93005; 96374; 96375; 97110; 97116; 97161; 97165; 97530; 99285; A9270; G0378; J0780; Q9967

== ENCOUNTER 2023-11-12 15:32 | Outpatient (CLI) | payer MEDICARE, SELFPAY ==
--- NOTE | ~2023-11-12 | XR_ITS ---
XR lumbar spine 2-3V DATE: 11/12/2023 15:52 INDICATION: Wedge compression fracture lumbar vertebra TECHNIQUE: Standing AP, lateral and coned lateral lumbosacral views COMPARISON: 10/06/2023 CT thoracic lumbar spine FINDINGS: Incidentally noted is evidence of cholecystectomy. There is extensive calcification of the abdominal aorta and iliac arteries; no aneurysm is evident There is diffuse prominent osteopenia. There is mild thoracolumbar levoscoliosis measuring 11 degrees from T9 to L4. Moderate anterior wedge compression fracture of L2 and L3 vertebral bodies are noted, mildly increase d in severity at L2 and relatively stable L3 since 10/06/2023. Moderate to moderately severe degenerative disease at L4-5 and L5-S1. No spondylolisthesis. The included lower thoracic and lumbar pedicles are intact. The sacroiliac joints are intact. IMPRESSION: Moderate compression fractures of L2 and L3, mildly increased in severity L2 since 2022 Prominent osteopenia Moderate to moderately severe degenerative disc disease at L4-5 and L5-S1 Reviewed, dictated and finalized at location B. ACER OPERATOR IMPRESSION: Moderate compression fractures of L2 and L3, mildly increased in se verity L2 since 10/06/2023 Prominent osteopenia Moderate to moderately severe degenerative disc disease at L4-5 and L5-S1
== END 2023-11-12 15:33 | disposition home or self-care (01) ==
PROVIDERS: PCP Internal Medicine; Visit Provider Neurological Surgery
DX: M85.88 Other specified disorders of bone density and structure, other site (principal); S32.020D Wedge compression fracture of second lumbar vertebra, subsequent encounter for fracture with routine healing; S32.030D Wedge compression fracture of third lumbar vertebra, subsequent encounter for fracture with routine healing; X58.XXXD Exposure to other specified factors, subsequent encounter; M51.36 Other intervertebral disc degeneration, lumbar region; M51.37 Other intervertebral disc degeneration, lumbosacral region
CPT/HCPCS: 72100

== ENCOUNTER 2023-12-27 08:59 | Outpatient (CLI) | payer MEDICARE, SELFPAY ==
--- NOTE | ~2023-12-27 | XR_ITS ---
Lumbosacral Spine: AP and lateral views Clinical History: Pain COMPARISON: 11/12/2023 Findings: The normal lordotic curve is maintained. Stable L2 and L3 compression fractures noted. Stab le degenerative disc narrowing at the lower lumbar spine. Stable facet joint degenerative changes. Th e sacroiliac joints are normally outlined. Impression: No interval change. Stable L2 and L3 compression fractures. Stable degenerative spondylosis, as above. Reviewed, dictated and finalized at location . Impression: No interval change. Stable L2 and L3 compression fractures. Stable degenerative spondylosis, as above.
== END 2023-12-27 09:00 | disposition home or self-care (01) ==
LOC: ANHIMG 09:02
PROVIDERS: PCP Internal Medicine; Visit Provider Physician Assistant
DX: S32.030D Wedge compression fracture of third lumbar vertebra, subsequent encounter for fracture with routine healing (principal); S32.020D Wedge compression fracture of second lumbar vertebra, subsequent encounter for fracture with routine healing; X58.XXXD Exposure to other specified factors, subsequent encounter
CPT/HCPCS: 72100

== ENCOUNTER 2024-02-21 00:59 | Emergency (ER) | payer MEDICARE, SELFPAY ==
[2024-02-21] VITALS (28 sets, daily range): BP systolic 105–161; BP diastolic 56–76; PULSE 78–96; RESP 15–29; TEMP 36.3; O2SAT 93–100
--- NOTE | ~2024-02-21 | CT_ITS ---
Clinical Indication: Shortness of breath, chest pain, nausea CT Scan of the Chest, Abdomen, and Pelvis with Contrast: Technique: Contiguous sections were acquired throughout the chest, abdomen, and pelvis after intraven ous administration of 100 cc of Omnipaque 350. Dose reduction technique was used on this scan by dianelys valverdeing automated exposure control and iterative reconstruction technique. The dose-length product (DL P) was 384.95 mGy-cm. COMPARISON: 10/06/2023 Findings: There is no evidence of any significant mediastinal, hilar or axillary lymphadenopathy. The mediastin al soft tissues appear normal. No pulmonary embolus seen. No aortic aneurysm or dissection. There are coronary artery calcifications of the aorta, mild in degree. There is no evidence of pleural or pericardial effusion. There is moderate chronic pulmonary interstitial disease, basilar and peripheral distribution, simila r to prior exam. The liver, spleen, pancreas, adrenals and kidneys are within normal limits. Cholecystectomy clips are present. There are atherosclerotic calcifications of the aorta. No lymphadenopathy. No bowel obstruction or bowel wall thickening. There is no evidence to suggest acute appendicitis. Tiny bubble of air in urinary bladder is present. No pelvic mass seen. No ascites.. Chronic compressi on deformities of L2 and L3. 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 Chronic compression deformity of L2 and L3. Tiny bubble of air in urinary bladder, most likely iatrogenic. Correlate clinically. Reviewed, dictated and finalized at location M. Impression: Chronic interstitial pulmonary disease, as detailed above, similar to prior exa m, most likely UIP. Chronic compression deformity of L2 and L3. Tiny bubble of air in urinary bladder, most likely iatrogenic. Correlate clinic ally.
--- NOTE | ~2024-02-21 | XR_ITS ---
Clinical Indication: Chest pain PA and lateral views of the chest: Comparison: 10/06/2023 Findings: Probable chronic interstitial change in the lungs, especially at the lung bases and peripherally.. C ardiomediastinal silhouette is within normal limits. Bones and soft tissues are unremarkable. Impression: Probable chronic interstitial disease, similar to prior exam. Reviewed, dictated and finalized at location . Impression: Probable chronic interstitial disease, similar to prior exam.
--- NOTE | 2024-02-21 00:59 | ECG_ITS ---
SEE SCANNED COPY FOR CONFIRMED REPORT MTDD
[2024-02-21 01:30] LABS: Basophils Absolute Auto 0.1 K/mm3 (0.0-0.1); Basophils Percent Auto 0.7 % (0.2-1.2); Eosinophils Absolute Auto 0.5 K/mm3 (0-0.3); Eosinophils Percent Auto 4.6 % (0-4.4); Hematocrit 36.2 % (37.0-47.0); Hemoglobin 11.9 g/dL (12.0-15.0); Immature Granulocyte Absolute 0.14 K/mm3 (0.00-0.031); Immature Granulocyte Percent A 1.4 % (0-0.5); Lymphocytes Absolute Auto 1.55 K/mm3 (0.9-3.2); Lymphocytes Percent Auto 15.4 % (18.3-44.2); Mean Corpuscular HGB Conc 32.9 g/dl (32-36); Mean Corpuscular Hemoglobin 31.5 pg (26-34); Mean Corpuscular Volume 95.8 fl (80-100); Mean Platelet Volume 10.9 fl (7.4-10.4); Monocytes Percent Auto 9.4 % (2.6-8.5); Neutrophils Absolute Auto 6.9 K/mm3 (1.3-6.7); Neutrophils Percent Auto 68.5 % (45.5-73.1); Platelet Count Result 165 k/mm3 (150-375); Red Blood Count 3.78 M/mm3 (4.2-5.4); Red Cell Distribution Width 11.8 % (11.5-14.5); White Blood Count 10.1 K/mm3 (4.5-10.0)
--- NOTE | 2024-02-21 01:36 | ED.CHESTPAIN ---
HPI - Chest Pain General Chief Complaint: Chest Pain <Chantal Chery PA-C - Last Filed: 02/21/24 04:10> Stated Complaint: cp, sob, n/v <Chantal Chery PA-C - Last Filed: 02/21/24 04:10> Time Seen by Provider: 02/21/24 01:19 <Chantal Chery PA-C - Last Filed: 02/21/24 04:10> History of Present Illness HPI narrative: 78-year-old female with a history of a TBI, hypertension and hyperlipidemia presents to the emergency department with her daughter at bedside for chest pain. Patient's daughter says with history of care patient states she was lying in bed trying to fall asleep when she began developing pain in her midback that traveled into her chest. She describes the pain as sharp. The pain is now in the anterior part of her chest and radiates to her left shoulder, left neck and jaw. States it is associated with shortness of breath, nausea and vomiting. States she told her daughter and they came to the ED for further evaluation. Patient states she took 3 baby aspirins prior to arrival. Patient states she sees Dr. Buckley for ?my heart?. She denies prior known history of CAD, CT, CHF. She does endorse a history of pulmonary fibrosis. Denies lower extremity edema, recent surgeries or hospitalizations, cough or congestion, fever. She does endorse a family history of cardiac disease. She does not smoke. <Chantal Chery PA-C - Last Filed: 02/21/24 04:10> Related Data Home Medications: Home Medications Medication Instructions Recorded Confirmed atorvastatin 10 mg tablet (Lipitor) 10 mg PO HS 10/06/23 12/27/23 rimegepant 75 mg disintegrating 75 mg PO ONCE PRN 11/15/23 12/27/23 tablet (Nurtec ODT) <Chantal Chery PA-C - Last Filed: 02/21/24 04:10> Allergies/Adverse Reactions: Allergies Allergy/AdvReac Type Severity Reaction Status Date / Time fenofibrate Allergy Mild Unknown Verified 12/27/23 13:07 erythromycin base Allergy Unknown STOMACH Verified 12/27/23 13:07 PAIN trichloroacetic acid Allergy Unknown Unknown Verified 12/27/23 13:07 morphine AdvReac Severe Nausea and Verified 12/27/23 13:07 Vomiting fluticasone AdvReac Jittery Verified 12/27/23 13:07 [From Advair Diskus] salmeterol AdvReac Jittery Verified 12/27/23 13:07 [From Advair Diskus] <Chantal Chery PA-C - Last Filed: 02/21/24 04:10> Review of Systems Review of Systems: CONSTITUTIONAL: Denies fever, chills, or sweats. EYES: Denies visual changes, redness, or discharge. ENT: Denies rhinorrhea, congestion, sore throat, or otalgia. CARDIOVASCULAR: See HPI RESPIRATORY: Denies cough or dyspnea. GASTROINTESTINAL: Denies abdominal pain, nausea, vomiting, or diarrhea. GENITOURINARY: Denies dysuria or hematuria. SKIN: Denies rash or itching. MUSCULOSKELETAL: Denies back pain, joint pain, or myalgia. NEUROLOGIC: Denies headache, numbness, or weakness. PSYCHIATRIC: Denies anxiety or depression. <Chantal Chery PA-C - Last Filed: 02/21/24 04:10> [facility] Past Medical History Medical History: Medical History COPD (chronic obstructive pulmonary disease) Hypertension Pulmonary fibrosis Traumatic brain injury <Chantal Chery PA-C - Last Filed: 02/21/24 04:10> Surgical History Surgical History: Surgical History Hx of cholecystectomy <Chantal Chery PA-C - Last Filed: 02/21/24 04:10> Family History Family History: Family History Father Diabetes mellitus Mother Hypertension Cerebrovascular accident Heart disease Sibling Depression Thyroid disorder <Chantal Chery PA-C - Last Filed: 02/21/24 04:10> Social History Social History: Social History Smoking status: Never smoker Alcohol intake: never Substance
[2024-02-21 01:42] LABS: Alanine Aminotransferase 17 U/L (6-35); Albumin Level 4.3 g/dL (3.5-5.1); Alkaline Phosphatase 73 U/L (38-126); Anion Gap 6 mmol/L (4-12); Aspartate Amino Transferase 30 U/L (14-36); Bilirubin,Total 0.5 mg/dL (0.2-1.3); Blood Urea Nitrogen 22 mg/dL (7-17); Calcium 9.2 mg/dL (8.4-10.2); Carbon Dioxide 26 mmol/L (22-30); Chloride 107 mmol/L (98-107); Estimated CRCL calculation 40 ml/min; Estimated Glomerular Filt Rate 54; Glucose 118 mg/dL (65-110); Lipase 147 U/L (23-300); Potassium 4.3 mmol/L (3.4-5.0); Sodium 139 mmol/L (137-145)
[2024-02-21] MEDS: ASPIRIN 81 MG CHEWABLE TABLET 324 MG PO (01:48)
[2024-02-21] MEDS: NITROGLYCERIN SL 0.4 MG TABLET SUBLINGUAL (01:49)
--- NOTE | 2024-02-21 01:50 | PC.NURSE ---
0150 1st SL nitro given 135/71bp, 74 bpm, 100% on RA. Pain 12/18. 0155 2nd SL nitro given 105/61bp, 80 bpm, 98% on RA. Pain 10/20. No 3rd dose needed, patient states pain is practically gone.
[2024-02-21 01:54] LABS: NT Pro B Type Natriuretic Pept 105 pg/mL (19.9-100); Troponin I < 0.012 ng/mL (0.000-0.034)
[2024-02-21 02:05] LABS: Partial Thromboplastin Time 30.2 Seconds (22.3-36.8)
--- NOTE | 2024-02-21 02:16 | PC.NURSE ---
Patient taken to CT via stretcher at this time while on tele monitor.
[2024-02-21 02:33] LABS: Prothrombin Time 14.1 Seconds (11.1-14.7)
[2024-02-21] MEDS: SODIUM CHLORIDE 0.9% IV 1,000 ML 999 ML IV CONT (02:38)
[2024-02-21] MEDS: ACETAMINOPHEN 325 MG TABLET 650 MG PO (02:39)
[2024-02-21] MEDS: LORazepam INJ (*CRX) 2 MG/ML VIAL 0.5 MG IV PUSH (03:31)
--- NOTE | 2024-02-21 04:20 | ECG_ITS ---
SEE SCANNED COPY FOR CONFIRMED REPORT MTDD
[2024-02-21 04:57] LABS: Troponin I < 0.012 ng/mL (0.000-0.034)
--- NOTE | 2024-02-21 06:36 | PC.NURSE ---
Patient ambulated in hallway with walker, patient ambulated well. Patient denied any cp, states she is ready to go home. ERP aware.
== END 2024-02-21 06:50 | disposition home or self-care (01) ==
PROVIDERS: Emergency Medicine; Emergency Provider Physician Assistant; PCP Internal Medicine
DX: R07.89 Other chest pain (principal); J84.10 Pulmonary fibrosis, unspecified; I10 Essential (primary) hypertension; J44.9 Chronic obstructive pulmonary disease, unspecified; Z87.820 Personal history of traumatic brain injury; Z90.49 Acquired absence of other specified parts of digestive tract; J84.9 Interstitial pulmonary disease, unspecified; R93.41 Abnormal radiologic findings on diagnostic imaging of renal pelvis, ureter, or bladder; I44.0 Atrioventricular block, first degree; I45.9 Conduction disorder, unspecified; R06.02 Shortness of breath
CPT/HCPCS: 36415; 71046; 71275; 74174; 80053; 83690; 83880; 84484; 85025; 85610; 85730; 93005; 96361; 96374; 99284; A9270; J2060; J7030; Q9967

== ENCOUNTER 2024-11-09 11:00 | Emergency (ER) | payer MEDICARE, SELFPAY ==
--- NOTE | ~2024-11-09 | XR_ITS ---
EXAMINATION: XR shoulder LT min 2V DATE: 11/09/2024 12:43 INDICATION: Left shoulder pain. Fall. TECHNIQUE: 3 views of left shoulder were obtained. COMPARISON: None. FINDINGS: Alignment is normal. No fracture. There is moderate osteoarthritis of glenohumeral joint an d acromioclavicular joint. Chronic interstitial lung disease is noted. IMPRESSION: 1. Polyarticular osteoarthritis. Reviewed, dictated and finalized at location A. VATED SLUDGE ATTENDANT
--- NOTE | ~2024-11-09 | CT_ITS ---
EXAMINATION: CT brain wo con DATE: 11/09/2024 12:14 INDICATION: Head injury TECHNIQUE: Computed tomography (CT) of the head was performed without intravenous contrast. Sagittal and coronal reconstructions were performed. The mA was adjusted according to patient size. Iterative reconstruction technique was employed. The dose-length product was 605.33 mGy-cm. COMPARISON: head CT dated 10/06/2023 FINDINGS: No fracture. Right-sided craniotomy with underlying chronic small region of encephalomalacia in the r ight parietal lobe likely related to old trauma in the small foci of metallic shrapnel along the carol ins of the craniotomy. No acute intracranial hemorrhage, acute infarction or abnormal extra axial flu id collection. Ventricles are normal and symmetric. No mass/mass effect. Changes of bilateral intraoc ular lens replacement. There is prominent mucosal thickening and dependently layering mucus in the le ft maxillary sinus suggestive of acute sinusitis. The orbits and mastoid air cells are normal. Intrac ranial calcified cerebral atherosclerosis is noted. IMPRESSION: 1. No acute fracture or acute intracranial process. 2. 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 Correlate with clinical history. Reviewed, dictated and finalized at location B. ICK BOAT RUNNER IMPRESSION: 1. No acute fracture or acute intracranial process. 2. 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 Correlate with clinical his tory.
--- NOTE | ~2024-11-09 | XR_ITS ---
EXAMINATION: XR ribs RT 2V w CXR 2V DATE: 11/09/2024 12:43 INDICATION: Right rib pain. Fall. TECHNIQUE: Frontal and lateral views of the chest and 2 views on 3 radiographs of the right ribs were obtained. COMPARISON: Chest 2 views 02/21/2024 FINDINGS: CHEST TWO VIEWS: There is chronic elevation of right hemidiaphragm. There is a diffuse chronic inters titial pattern in the lungs with architectural distortion with a peripheral predominance. No pleural effusion or pneumothorax. Cardiomegaly is noted. Surgical clips in the right upper quadrant are likel y from cholecystectomy. RIGHT RIBS: There is no acute rib fracture. IMPRESSION: 1. No acute rib fracture. 2. Stable chronic interstitial lung disease. Reviewed, dictated and finalized at location A. RPRISE INTEGRATION ARCHITECT
--- NOTE | ~2024-11-09 | CT_ITS ---
EXAMINATION: CT hip LT wo con DATE: 11/09/2024 18:24 INDICATION: Left hip pain. TECHNIQUE: Computed tomography (CT) of the left hip was performed without intravenous contrast. Autom ated exposure control and iterative reconstruction technique were employed. The dose-length product w as 541.45 mGy-cm. COMPARISON: Left hip radiographs 11/09/2024 FINDINGS: Alignment is normal. No fracture. There is severe lumbar spondylosis. There is mild left hi p osteoarthritis. There is subcutaneous fat stranding in inferior left buttock, consistent with infla mmation versus scarring. IMPRESSION: 1. Mild left hip osteoarthritis. 2. Subcutaneous fat stranding in the inferior left buttock, consistent with inflammation versus scarr ing. Reviewed, dictated and finalized at location A. ER GRADER IMPRESSION: 1. Mild left hip osteoarthritis. 2. Subcutaneous fat stranding in the inferior left buttock, consistent with inf lammation versus scarring.
--- NOTE | ~2024-11-09 | XR_ITS ---
EXAMINATION: XR elbow LT min 3V DATE: 11/09/2024 12:43 INDICATION: Left elbow pain. Fall. TECHNIQUE: 4 views of left elbow were obtained. COMPARISON: None. FINDINGS: Alignment is normal. No fracture. There is mild elbow joint osteoarthritis. No elbow joint effusion. IMPRESSION: 1. Mild elbow joint osteoarthritis. Reviewed, dictated and finalized at location A. 3RD PRESSMAN
--- NOTE | ~2024-11-09 | CT_ITS ---
EXAMINATION: CT thoracic lumbar wo con DATE: 11/09/2024 12:18 INDICATION: Back pain. Fall. TECHNIQUE: Computed tomography (CT) of the thoracic and lumbar spine was performed without intravenou s contrast. Automated exposure control and iterative reconstruction technique were employed. The dose -length product was 962.33 mGy-cm. COMPARISON: None FINDINGS: CT THORACIC SPINE: Partially visualizes chronic interstitial lung disease. Calcified right hilar lymp h nodes are consistent with old granulomatous disease. There is 9 degrees dextrocurvature of thoracic spine. There is kyphosis of thoracic spine. Vertebral body heights are normal. There is mild to mode rately decreased disc height from T2-T3 through T9-T11. There is multilevel mild facet joint osteoart hritis. There is no neural foraminal stenosis. There is mild central canal stenosis at T5-T6. CT LUMBAR SPINE: There is 6 degrees levocurvature of thoracic lumbar spine. There are chronic burst f ractures of L2 on L3 with 2/5 loss of height and retropulsion of bone into 4 mm into central spinal c anal. There is severely decreased disc height at L4-L5 and L5-S1. The following disc levels are speci fically discussed: L1-L2: The disc is bulging. There is moderate right and mild left facet joint osteoarthritis. There i s mild bilateral neural foraminal stenosis. There is mild central canal stenosis. L2-L3: The disc is bulging. There is moderate bilateral facet joint osteoarthritis. There is mild renee ateral neural foraminal stenosis. There is mild central canal stenosis. L3-L4: The disc is bulging. There is severe bilateral facet joint osteoarthritis. There is mild bilat eral neural foraminal stenosis. There is mild central canal stenosis. L4-L5: The disc is bulging. There is severe bilateral facet joint osteoarthritis. There is mild right and moderate left neural foraminal stenosis. There is mild central canal stenosis. L5-S1: The disc is bulging. There is severe bilateral facet joint osteoarthritis. There is mild bilat eral neural foraminal stenosis. There is mild central canal stenosis. IMPRESSION: 1. No acute fracture. 2. Moderate thoracic spondylosis and severe lumbar spondylosis. Reviewed, dictated and finalized at location A. H CRYSTAL CUTTER
--- NOTE | ~2024-11-09 | XR_ITS ---
EXAMINATION: XR hip LT 2V w AP pelvis DATE: 11/09/2024 12:43 INDICATION: Left hip pain. Fall. TECHNIQUE: An anteroposterior view of the pelvis and 2 views of left hip were obtained. COMPARISON: Pelvis radiograph 10/06/2023 FINDINGS: There is lumbar levocurvature and severe spondylosis. No fracture. There is mild osteoarthr itis of the hip joints. IMPRESSION: 1. Mild osteoarthritis of the hips. Reviewed, dictated and finalized at location A. H DRIVER
--- NOTE | ~2024-11-09 | CT_ITS ---
EXAMINATION: CT cervical spine wo con DATE: 11/09/2024 12:14 INDICATION: Head injury. TECHNIQUE: Computed tomography (CT) of the cervical spine was performed without intravenous contrast. Automated exposure control and iterative reconstruction technique were employed. The dose-length pro duct was 152.97 mGy-cm. COMPARISON: CT cervical spine 10/06/23 FINDINGS: There is mild scarring at the lung apices. There is 9 degrees dextrocurvature of cervical s pine. Vertebral body heights are normal. Intervertebral disc heights are normal. The following disc l evels are specifically discussed: C2-C3: There is no uncovertebral joint osteoarthritis. There is severe bilateral facet joint osteoart hritis. There is no neural foraminal stenosis. There is no central canal stenosis. C3-C4: There is no uncovertebral joint osteoarthritis. There is severe bilateral facet joint osteoart hritis. There is mild right neural foraminal stenosis. There is no central canal stenosis. C4-C5: There is no uncovertebral joint osteoarthritis. There is severe bilateral facet joint osteoart hritis. There is no neural foraminal stenosis. There is no central canal stenosis. C5-C6: There is no uncovertebral joint osteoarthritis. There is severe bilateral facet joint osteoart hritis. There is mild bilateral neural foraminal stenosis. There is no central canal stenosis. C6-C7: There is no uncovertebral joint osteoarthritis. There is severe right and moderate left facet joint osteoarthritis. There is mild right neural foraminal stenosis. There is no central canal stenos is. C7-T1: There is no uncovertebral joint osteoarthritis. There is severe bilateral facet joint osteoart hritis. There is mild bilateral neural foraminal stenosis. There is no central canal stenosis. IMPRESSION: 1. No fracture. 2. Mild cervical spondylosis. Reviewed, dictated and finalized at location A. LE MACHINE OPERATOR
[2024-11-09 11:02] VITALS: BP 151/51; PULSE 62; RESP 15; TEMP 36.4; O2SAT 100
--- NOTE | 2024-11-09 11:35 | ED_ITS ---
HPI - Fall General Chief Complaint: Fall <Kailey Romero PA-C - Last Filed: 11/10/24 17:19> Stated Complaint: glf, L hip injury, hit head <Kailey Romero PA-C - Last Filed: 11/10/24 17:19> Time Seen by Provider: 11/09/24 11:35 <Kailey Romero PA-C - Last Filed: 11/10/24 17:19> Focused HPI: This is a 79 year old female that presents to the ER for a fall. Reports her slippers got caught and she fell trying to get out of her chair. Hit right side of head, left side of body. Reports left hip, elbow pain, shoulder pain. No anticoagulation. Daughter reports she seems slightly more confused and is repeating herself. GENERAL: Elderly, well-nourished, and in no acute distress. HEAD: Normocephalic, atraumatic. CHEST: Clear to auscultation. ?No respiratory distress. HEART: Regular rate and rhythm.? NEURO: ?Alert and oriented x3. Patient screened in triage and initial orders placed.? ?Additional care and di sposition to be based upon?diagnostic testing and treatment. <Kailey Romero PA-C - Last Filed: 11/10/24 17:19> Focused HPI: This is a 79 year old female that presents to the ER for a fall. Reports her slippers got caught and she fell trying to get out of her chair. Hit right side of head, left side of body. Reports left hip, elbow pain, shoulder pain. No anticoagulation. GENERAL: Elderly, well-nourished, and in no acute distress. HEAD: Normocephalic, atraumatic. CHEST: Clear to auscultation. ?No respiratory distress. HEART: Regular rate and rhythm.? NEURO: ?Alert and oriented x3. Patient screened in triage and initial orders placed.? ?Additional care and disposition to be based upon?diagnostic testing and treatment. <Justin Salinas MD - Last Filed: 11/18/24 08:02> History of Present Illness HPI Narrative: I agree with the above HPI <Justin Salinas MD - Last Filed: 11/18/24 08:02> Related Data Home Medications: Home Medications ?Medication ?Instructions ?Recorded ?Confirmed ?Last Taken ?Type atorvastatin 10 mg tablet (Lipitor) 10 mg PO HS 10/06/23 12/27/23 Unknown History rimegepant 75 mg disintegrating 75 mg PO ONCE PRN 11/15/23 12/27/23 Unknown History tablet (Nurtec ODT) <Kailey Romero PA-C - Last Filed: 11/10/24 17:19> Allergies/Adverse Reactions: Allergies Allergy/AdvReac Type Severity Reaction Status Date / Time fenofibrate Allergy Mild Unknown Verified 11/09/24 11:01 erythromycin base Allergy Unknown STOMACH Verified 11/09/24 11:01 PAIN trichloroacetic acid Allergy Unknown Unknown Verified 11/09/24 11:01 morphine AdvReac Severe Nausea and Verified 11/09/24 11:01 Vomiting fluticasone (From Advair AdvReac Jittery Verified 11/09/24 11:01 Diskus) salmeterol (From Advair AdvReac Jittery Verified 11/09/24 11:01 Diskus) <Kailey Romero PA-C - Last Filed: 11/10/24 17:19> Review of Systems Review of Systems: All systems reviewed & are unremarkable except as noted in HPI and below <Justin Salinas MD - Last Filed: 11/18/24 08:02> [facility] Past Medical History Medical History: Medical History COPD (chronic obstructive pulmonary disease) Hypertension Pulmonary fibrosis Traumatic brain injury <Kailey Romero PA-C - Last Filed: 11/10/24 17:19> Surgical History Surgical History: Surgical History Hx of cholecystectomy <Kailey Romero PA-C - Last Filed: 11/10/24 17:19> Family History Family History: Family History Father Diabetes mellitus Mother Hypertension Cerebrovascular accident Heart disease Sibling Depression Thyroid disorder <Kailey Romero PA-C - Last Filed: 11/10/24 17:19> Social History Social History: Social History Smoking status: Never smoker Alcohol intake: never Substance use: never Substance use type: does not use Do You Feel Safe in your Home?: Yes Lack of Transportation: No Lack of Food: Never True Current Housing: I Have Housing Concerned About Future Housing: No Difficulty Paying Gas/Electric Bills: No Difficulty Paying for Meds: No Currently Unemployed: No Education: Trade/Vocational Certificate Difficulty w/ Childcare or Family Care: No Spiritual care concerns: No <Kailey Romero PA-C - Last Filed: 11/10/24 17:19> Exam Narrative: APPEARANCE: Well appearing, no pain, no distress, well-nourished. HEAD: normocephalic, atraumatic. EYES: PERRLA/EOMI, conjunctivae clear. NOSE: Normal no drainage EARS:TMS clear with good light reflex. THROAT: Pharynx clear, no exudate. NECK: Supple. No adenopathy, no masses. RESPIRATORY: Airway patent, respirations nonlabored. Clear to auscultation bilaterally, no rales, rhonchi, wheezing. CARDIOVASCULAR: Regular rate and rhythm without murmurs rubs or gallops. ABDOMINAL: Soft, nontender, nondistended, normal bowel sounds MUSCULOSKELETAL: Left hip pain, elbow pain, hip pain NEURO: Alert. Cranial nerves II through XII intact. Good gait. Good coordination SKIN: Warm, dry. Normal Color <Justin Salinas MD - Last Filed: 11/18/24 08:02> Course Vital Signs Vital signs: Vital Signs Temperature 97.6 F 11/09/24 11:02 Pulse Rate 62 11/09/24 11:02 Respiratory Rate 15 11/09/24 11:02 Blood Pressure 151/51 H 11/09/24 11:02 Pulse Oximetry 100 11/09/24 11:02 Oxygen Delivery Room Air 11/09/24 11:02 Temperature 97.8 F 11/09/24 19:45 Pulse Rate 65 11/09/24 19:45 Respiratory Rate 18 11/09/24 19:45 Blood Pressure 149/70 H 11/09/24 19:45 Pulse Oximetry 98 11/09/24 19:45 Oxygen Delivery Room Air 11/09/24 11:02 <Kailey Romero PA-C - Last Filed: 11/10/24 17:19> Vital Signs Temperature 97.6 F 11/09/24 11:02 Pulse Rate 62 11/09/24 11:02 Respiratory Rate 15 11/09/24 11:02 Blood Pressure 151/51 H 11/09/24 11:02 Pulse Oximetry 100 11/09/24 11:02 Oxygen Delivery Room Air 11/09/24 11:02 Temperature 97.8 F 11/09/24 19:45 Pulse Rate 65 11/09/24 19:45 Respiratory Rate 18 11/09/24 19:45 Blood Pressure 149/70 H 11/09/24 19:45 Pulse Oximetry 98 11/09/24 19:45 Oxygen Delivery Room Air 11/09/24 11:02 <Justin Salinas MD - Last Filed: 11/18/24 08:02> MDM - Fall MDM Narrative Medical decision making narrative: 79-year-old female presented emergency department for evaluation for multiple complaints after having a mechanical fall. X-rays were negative for acute fracture dislocation. Due to the patient still having pain in the left hi p after negative imaging CT hip was ordered and this was also negative. Patient family updated on the results of the workup. Patient was encouraged close follow-up with primary care physician. All questions concerns were addressed. <Justin Salinas MD - Last Filed: 11/18/24 08:02> Differential Diagnosis Differential diagnosis: Likely other <Justin Salinas MD - Last Filed: 11/18/24 08:02> Imaging Data Radiologist's impression: Impressions Head CT 11/09/24 12:19 IMPRESSION: 1. No acute fracture or acute intracranial process. 2. 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 Correlate with clinical history. Cervical Spine CT 11/09/24 12:26 IMPRESSION: 1. No fracture. 2. Mild cervical spondylosis. Thoracic/Lumbar Spine CT 11/09/24 12:29 IMPRESSION: 1. No acute fracture. 2. Moderate thoracic spondylosis and severe lumbar spondylosis. Elbow X-Ray 11/09/24 12:44 IMPRESSION: 1. Mild elbow joint osteoarthritis. Shoulder X-Ray 11/09/24 12:45 IMPRESSION: 1. Polyarticular osteoarthritis. Hip/Pelvis X-Ray 11/09/24 12:46 IMPRESSION: 1. Mild osteoarthritis of the hips. Ribs w/Chest X-Ray 11/09/24 12:48 IMPRESSION: 1. No acute rib fracture. 2. Stable chronic interstitial lung disease. <Justin Salinas MD - Last Filed: 11/18/24 08:02> Critical Care Time Critical Care Time Critical Care Time: No <Kailey Romero PA-C - Last Filed: 11/10/24 17:19> Discharge Plan Discharge Clinical Impression: Acute hip pain, Head injury, Elbow pain, left <Kailey Romero PA-C - Last Filed: 11/10/24 17:19> Patient Disposition: Home, Self-Care <Kailey Romero PA-C - Last Filed: 11/10/24 17:19> Condition: Stable <Kailey Romero PA-C - Last Filed: 11/10/24 17:19> Instructions: Antibiotic Form, Head Injury (ED) <Kailey Romero PA-C - Last Filed: 11/10/24 17:19> Additional Instructions: Tylenol and ibuprofen for pain control. Have close follow-up with your primary care physician. <Kailey Romero PA-C - Last Filed: 11/10/24 17:19> Patient Language: Turkmen <Kailey Romero PA-C - Last Filed: 11/10/24 17:19> Prescriptions: No Action Nurtec ODT 75 mg tablet,disintegrating 75 mg PO ONCE PRN Rx Instructions: as a single dose atorvastatin [Lipitor] 10 mg tablet 10 mg PO HS azelastine 137 mcg (0.1 %) Aerosol,[place] 1 spray intranasal Q12HR Qty: 30 0RF acetaminophen 325 mg Tablet 650 mg PO Q4H PRN (Reason: Pain Rated 1-3) Qty: 30 0RF <Kailey Romero PA-C - Last Filed: 11/10/24 17:19> Follow-up/Referrals: Argenis,MD Varun [Primary Care Provider] - <Kailey Romero PA-C - Last Filed: 11/10/24 17:19>
--- OUTSIDE RECORDS SUMMARY | 2024-11-09 11:57 | XMS_ITS | Data Portability ---
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 Saumya Wise or Dr. Aleksandar Beltran of the ILD Clinic at [facility] in [place] (TEL , TEL [phone], FAX [phone], FAX [phone]) for further evaluation. She has an appointment set for 11/25/23. She has old records from [facility] Lung Transplant team. Advised to continue not to smoke. Adherence to therapy is advocated. Nonadherence may lead to treatment failure, further progression of the condition, and other complications. Hospitals admissions are often the result of individuals not taking prescription medications accurately. Alternatively, greater adherence to medication regimens have shown to lower rates of hospitalization and decrease total medical costs in patients with chronic medical conditions. Advocated influenza vaccination annually and pneumonia vaccination OLIVA. Encouraged patient to adjust caloric intake to maintain/achieve ideal body weight, emphasizing on fruits, vegetables, whole grains, and fat-free or low-fat products. These include lean meats, poultry, fish, beans, eggs, and nuts and foods that are low in saturated fats, trans-fats, cholesterol, salt (sodium), and glycemic index. Stressed the importance of regular exercise up to the patient's capacity limits. In this case, we recommend regular (4 x a week or more) walking or other light activity. Patient to monitor BP daily and bring records to PCP for further management. Follow-up: 1 month after [facility] ILD consult [email or web address] Not available 11/09/2023 16:45:12 02/02/2024 02/02/2024 12/30/2023: PLT 149 BUN 26, GFR 58 40 minutes spent with the patient and her daughter andie Not available 02/02/2024 17:15:23 05/17/2024 05/17/2024 12/30/2023: PLT 149 BUN 26, GFR 58 02/21/2024: ER GFR 54, Gluc 114 H/H 11.9/36.2 40 minutes spent with the patient and her daughter andie Not available 05/17/2024 14:43:22 11/08/2024 11/08/2024 12/30/2023: PLT 149 BUN 26, GFR 58 02/21/2024: ER GFR 54, Gluc 114 H/H 11.9/36.2 05/18/2024: [email or web address] Not available 11/08/2024 16:39:32 Plan of Treatment Reminders Order Date Submit Date Provider Last Modified By Organization Details Last Modified Time Details Appointments Follow Up 15 2024 01:00P Mahendra fulton MD Not available Not available Not available Lab vitami brandt D, 25-hyd kerrie, total, serum 2023 024 [email or web address] Not available 05/09/2024 08:48:54 lipid panel, serum 2023 024 JENNIFER Not available 12/30/2023 18:35:22 CMP, serum or plasma 2023 024 JENNIFER Not available 12/30/2023 18:35:33 CBC w/ auto diff 2023 024 JENNIFER Not available 12/30/2023 19:01:50 TSH + free T4, serum 2023 024 [email or web address] Not available 05/09/2024 08:48:54 vitami n B12 + folate , serum or blood 2023 024 [email or web address] Not available 05/09/2024 08:48:54 vitami n D, 25-hyd kerrie, total, serum 2023 024 [email or web address] Not available 07/31/2024 12:23:36 lipid panel, serum 2023 024 [email or web address] Not available 07/31/2024 12:23:36 CMP, serum or plasma 2023 024 Not available 07/31/2024 12:23:37 CBC w/ auto diff 2023 024 [email or web address] Not available 07/31/2024 12:23:37 TSH + free T4, serum 2023 024 Not available 07/31/2024 12:23:37 vitami n B12 + folate , serum or blood 2023 024 [email or web address] Not available 07/31/2024 12:23:37 vitami n D, 25-hyd kerrie, total, serum 2023 024 [email or web address] Not available 05/17/2024 14:42:57 lipid panel, serum 2023 024 [email or web address] Not available 05/17/2024 14:42:57 CMP, serum or plasma 2023 024 [email or web address] Not available 05/17/2024 14:42:58 CBC w/ auto diff 2023 024 [email or web address] Not available 05/17/2024 14:42:58 TSH + free T4, serum 2023 024 [email or web address] Not available 05/17/2024 14:42:58 vitami n B12 + folate , serum or blood 2023 024 [email or web address] Not available 05/17/2024 14:42:58 vitami n D, 25-hyd kerrie, total, serum 2024 025 [facility], [address], [place], [address], 11/08/2024 17:50:33 lipid panel, serum 2024 025 [facility], [address], [place], [address], 11/08/2024 17:50:34 CMP, serum or plasma 2024 025 [facility], [address], [place], [address], 11/08/2024 17:50:33 CBC w/ auto diff 2024 025 [facility], [address], [place], [address], 11/08/2024 17:50:34 TSH + free T4, serum 2024 025 [facility], [address], [place], [address], 11/08/2024 17:50:34 vitami n B12 + folate , serum or blood 2024 025 [facility], [address], [place], [address], 11/08/2024 17:50:33 Referral gyneco logist referr al 2023 024 [email or web address] Yolette Campbell MD, [address], [place], [address], 05/29/2024 09:33:35 cardio logist referr al 2023 024 JENNIFER CrowderPalmitt, [address], [place], [address], 01/30/2024 15:02:44 pulmon ologis t referr al Hadley quick has ILD and was on lung transp lant [facility]in g [facility] 2023 024 JENNIFER Saumya Wise, [address], [place], [address], 01/30/2024 14:56:51 nephro logist referr al 2023 024 [email or web address] Johnson MD (Nephrology, [address], [place], [address], 03/01/2024 08:19:24 gyneco logist referr al 2023 024 [email or web address] Yolette Campbell MD, [address], [place], [address], 07/31/2024 12:23:49 gyneco logist referr al 2023 024 ALEXI Campbell MD, [address], [place], [address], 05/17/2024 14:44:43 nephro logist referr al 2023 024 estefany Johnson MD (Nephrology, [address], [place], [address], 06/15/2024 15:13:15 pulmon ologis t referr al 2024 025 [email or web address] Saumya Frandy, [address], [address], [place], [address], 11/08/2024 16:35:21 nephro logist referr al 2024 025 [email or web address] Johnson MD (Nephrology, [address], [place], [address], 11/08/2024 16:35:21 gyneco logist referr al 2024 025 [email or web address] Campbell MD, [address], [place], [address], 11/08/2024 16:35:21 Procedures colono scopy screen ing (PROC) 2023 024 estefany Doan MD, [address], [place], [address], 05/08/2024 10:04:30 colono scopy screen ing (PROC) 2023 024 estefany Doan MD, [address], [place], [address], 07/31/2024 12:23:05 colono scopy screen ing (PROC) 2023 024 [facility] Daniel Doan MD, [address], [place], [address], 05/17/2024 14:43:58 Surgeries None record ed. Imaging DEXA [address] [facility] ([facility]), [address], [place], [address], 11/12/2023 15:12:50 MAMMO, screen ing, digita l, bilate ral [address] [facility] ([facility]), [address] [place], [address], 11/12/2023 15:23:08 Medication Orders levofl oxacin 750 mg tablet 2024 025 [id number], [address] [facility], [place], [place], [id number], 11/08/2024 16:41:29 Patient TargetsNo targets recorded. Patient Instructions Encounter Date Encounter Id Patient Instructions Last Modified By Organization Details Last Modified Time 05/17/2024 [id number] dementia rating scale-2* [email or web address] 2 Not available 05/17/2024 14:42:30 alcohol misuse* [email or web address] 2 Not available 05/17/2024 14:42:30 depression screening* [email or web address] 2 Not available 05/17/2024 14:42:30 Timed Up and Go test (TUG)* [email or web address] 2 Not available 05/17/2024 14:42:30 multi-dimensiona l health assessment questionnaire* [email or web address] 2 Not available 05/17/2024 14:42:30 Personalized [facility] Plan and Screening Recommendations Advance Directives - Do you have one? Yes Advance Directives - Do we have your advance directive on file in your health record? Yes Primary Prevention/Interven tion (prevents or decreases the chance of common diseases from occurring) Smoking Risk: Non Smoker Alcohol Misuse Screening: Negative Weight: Appropriate Physical activity: minimum of 10-20 minutes of activity that causes mild breathlessness/day Nutrition: Good Average Refer to attached handout Heart-Healthy Diet: After Your Visit Fall Risk (screened today): Refer to attached handout Preventing Falls: After your Visit Vaccines Pneumococcal: Ordered Recommended today Recommended today, but you have declined No further needed Influenza: Chronic Disease Risks Stroke: Low Risk Intermediate Risk Heart Attack: Low risk Intermediate Risk Clogging of the Arteries: Low risk Intermediate Risk Diabetes: Low Risk Secondary Prevention/Interven tion (detects treatable diseases before they may cause symptoms, disability, or ) Breast Cancer Screening with mammogram: Cervical/Uterine/Ov dona Cancer Screening: Your next PAP/pelvic in: Referral to glass block bender Recomm ended today Recommended today, but you have declined Osteoporosis Screening: Date Screening Last Performed: 11/12/23 Colon Cancer Screening: Colonoscopy Date Screening Last Performed: declined Eye Disease Screening: Ordered Recommended today Dementia Risk: I have no recommendations Depression Screening: Negative [email or web address] Not available 05/17/2024 14:51:12 Reason for Referral College Athlete Referral for Gy necologic examination Referring Physician: Varun More Internal Medicine, Encounter Date: 11/03/2023 Cottage Attendant Referral for Co ronary arteriosclerosis Referring Physician: Varun More Internal Medicine, Encounter Date: 11/03/2023 Knowledge Management Advisor Referral for I nterstitial lung disease Patient has ILD and was on lung transplant waiting list with [facility] at one point Referring Physician: Quinton Alvarez, Pulmonary Disease, Encounter Date: 11/09/2023 College Athlete Referral for Gy necologic examination Referring Physician: Irma Perez Medicine, Encounter Date: 02/02/2024 Radiation Engineer Referral for Ch ronic kidney disease Referring Physician: Irma Perez, Encounter Date: 02/02/2024 College Athlete Referral for Gy necologic examination Referring Physician: Irma Perez, Encounter Date: 05/17/2024 Radiation Engineer Referral for Ch ronic kidney disease Referring Physician: Irma Perez, Encounter Date: 05/17/2024 College Athlete Referral for Gy necologic examination Referring Physician: Irma Perez, Encounter Date: 11/08/2024 Radiation Engineer Referral for Ch ronic kidney disease Referring Physician: Irma Perez, Encounter Date: 11/08/2024 Knowledge Management Advisor Referral for I diopathic pulmonary fibrosis Referring Physician: Irma Perez, Encounter Date: 11/08/2024 Results Created Date Observation Date Name Description Value Unit Range Abnormal Flag Note LastModifiedBy Organization Detail LastModifiedTime 12/30/19 24 12/30/2023 LIPID PANEL cholesterol 136 mg/dL 140-19 9 low NIH BERNADINE NSUS RECOM MENDA TION FOR GLENN STERO L: ADULT CHILD LOW RISK: <200 <170 BORDE RLINE : <200- 239 ----- HIGH RISK: >240 >200 Not Available [facility] (Lab) [address] [place], [address], 12/30/2023 18:35:22 12/30/19 24 12/30/2023 LIPID PANEL triglyceride s 104 mg/dL 0-150 NIH BERNADINE NSUS REPOR T RECOM MENDA TION FOR TRIGL YCERI ALANA: ADULT CHILD LOW RISK: <150 ----- BODER LINE: 150-1 99 ----- HIGH RISK: >200 ----- Not Available [facility] (Lab) [address] [place], [address], 12/30/2023 18:35:22 12/30/19 24 12/30/2023 LIPID PANEL HDL cholesterol 47 mg/dL 40- Not Available [facility] (Lab) [address] [place], [address], 12/30/2023 18:35:22 12/30/19 24 12/30/2023 LIPID PANEL LDL cholesterol, calculated 68 mg/dL 0-130 NIH BERNADINE NSUS REPOR T RECOM MENDA TIONS FOR LDL: ADULT CHILD LOW RISK <130 <110 (OPTI MAL LDL) <100 ----- BORDE RLINE : 130-1 59 ----- HIGH RISK: >160 >130 A TRIGL YCERI DE RESUL T >400 INVAL IDATE S THE CALCU LATIO N FOR LDL FRACT IONAT ION - THE LDL RESUL T WILL NOT BE REPOR MARCIE. Not Available [facility] (Lab) [address] [place], [address], 12/30/2023 18:35:22 12/30/19 24 12/30/2023 COMPR EHENS LUCIUS METAB OLIC PANEL sodium 137 mmol/ L 137-14 5 Not Available [facility] (Lab) [address] [place], [address], 12/30/2023 18:35:33 12/30/19 24 12/30/2023 COMPR EHENS LUCIUS METAB OLIC PANEL potassium 4.5 mmol/ L 3.5-5. 1 Not Available [facility] (Lab) [address] [place], [address], 12/30/2023 18:35:33 12/30/19 24 12/30/2023 COMPR EHENS LUCIUS METAB OLIC PANEL chloride 106 mmol/ L 98-107 Not Available [facility] (Lab) [address] [place], [address], 12/30/2023 18:35:33 12/30/19 24 12/30/2023 COMPR EHENS LUCIUS METAB OLIC PANEL carbon dioxide 28 mmol/ L 22-30 Not Available [facility] (Lab) [address] [place], [address], 12/30/2023 18:35:33 12/30/19 24 12/30/2023 COMPR EHENS LUCIUS METAB OLIC PANEL anion gap 7.5 mmol/ L 14-22 low Not Available [facility] (Lab) [address] [place], [address], 12/30/2023 18:35:33 12/30/19 24 12/30/2023 COMPR EHENS LUCIUS METAB OLIC PANEL glucose 95 mg/dL 70-99 Not Available [facility] (Lab) [address] [place], [address], 12/30/2023 18:35:33 12/30/19 24 12/30/2023 COMPR EHENS LUCIUS METAB OLIC PANEL BUN 26 mg/dL 8-19 high Not Available [facility] (Lab) [address] [place], [address], 12/30/2023 18:35:33 12/30/19 24 12/30/2023 COMPR EHENS LUCIUS METAB OLIC PANEL creatinine 0.93 mg/dL 0.66-1 .25 Not Available [facility] (Lab) [address] [place], [address], 12/30/2023 18:35:33 12/30/19 24 12/30/2023 COMPR EHENS LUCIUS METAB OLIC PANEL GFR 58 Refer ence Range : Casper ge GFR Healt hy Adult : >60 mL/mi n/1.7 3 m2 Chron ic Kidne y Disea se: 15-60 mL/mi n/1.7 3 m2 Kidne y Failu re: <15/m L/min /1.73 m2 www.n iddk. nih.g ov The MDRD study equat ion has not been valid ated in child allan <18 years of age; pregn ant women ; the elder ly >85 years of age; or in some racia l or ethni c subgr oups, such as Hisor nics. Outsi de the valid ated pastor eters , estim ated GFR is less accur ate, requi ring clini dilan judgm ent on a case- by-ca se basis . Clini dilan inter preta tion for other races and ages must be made by the clini nancy. The MDRD study equat ion has not been valid ated for the evalu ation of serum creat inine relat ed to nutri lio l statu s or medic ation usage . For perso ns <18 years of age, a pedia tric GFR calcu lator is avail able on the F websi te: https ://susan w.favian newberry.o rg/pr ofess ional s/kdo qi/gf r_cal culat or Not Available [facility] (Lab) [address] [place], [address], 12/30/2023 18:35:33 12/30/19 24 12/30/2023 COMPR EHENS LUCIUS METAB OLIC PANEL alkaline phosphatase 73 U/L 38-126 Not Available [facility] (Lab) [address] [place], [address], 12/30/2023 18:35:33 12/30/19 24 12/30/2023 COMPR EHENS LUCIUS METAB OLIC PANEL alanine aminotransfe rase 19 U/L 0-35 Not Available [facility] (Lab) [address] [place], [address], 12/30/2023 18:35:33 12/30/19 24 12/30/2023 COMPR EHENS LUCIUS METAB OLIC PANEL aspartate aminotransfe rase 33 U/L 15-37 Not Available [facility] (Lab) [address] [place], [address], 12/30/2023 18:35:33 12/30/19 24 12/30/2023 COMPR EHENS LUCIUS METAB OLIC PANEL bilirubin, total 0.60 mg/dL 0.20-1 .30 Not Available [facility] (Lab) [address] [place], [address], 12/30/2023 18:35:33 12/30/19 24 12/30/2023 COMPR EHENS LUCIUS METAB OLIC PANEL calcium 9.1 mg/dL 8.4-10 .2 Not Available [facility] (Lab) [address] [place], [address], 12/30/2023 18:35:33 12/30/19 24 12/30/2023 COMPR EHENS LUCIUS METAB OLIC PANEL total protein 6.4 g/dL 6.3-8. 2 Not Available [facility] (Lab) [address] [place], [address], 12/30/2023 18:35:33 12/30/19 24 12/30/2023 COMPR EHENS LUCIUS METAB OLIC PANEL albumin 3.9 g/dL 3.0-4. 4 Not Available [facility] (Lab) [address] [place], [address], 12/30/2023 18:35:33 12/30/19 24 12/30/2023 COMPR EHENS LUCIUS METAB OLIC PANEL globulin 2.5 g/dL 2.6-4. 2 low Not Available [facility] (Lab) [address] [place], [address], 12/30/2023 18:35:33 12/30/19 24 12/30/2023 COMPR EHENS LUCIUS METAB OLIC PANEL A/G ratio 1.6 ratio 1.0-2. 0 Not Available [facility] (Lab) [address] [place], [address], 12/30/2023 18:35:33 12/30/19 24 12/30/2023 T4 FREE free T4 0.95 NG/dL 0.78-2 .19 Not Available [facility] (Lab) [address] [place], [address], 12/30/2023 18:51:20 12/30/19 24 12/30/2023 CBC/C OMPLE TE BLD COUNT W/DIF F white blood cells 7.4 x10'3 /uL 4.2-10 .8 Not Available [facility] (Lab) [address] [place], [address], 12/30/2023 19:01:50 12/30/19 24 12/30/2023 CBC/C OMPLE TE BLD COUNT W/DIF F red blood cells 3.79 x10'6 /uL 3.80-5 .20 low Not Available [facility] (Lab) [address] [place], [address], 12/30/2023 19:01:50 12/30/19 24 12/30/2023 CBC/C OMPLE TE BLD COUNT W/DIF F hemoglobin 12.4 g/dL 12.0-1 5.6 Not Available [facility] (Lab) [address] [place], [address], 12/30/2023 19:01:50 12/30/19 24 12/30/2023 CBC/C OMPLE TE BLD COUNT W/DIF F hematocrit 36.6 % 35.7-4 5.7 Not Available [facility] (Lab) [address] [place], [address], 12/30/2023 19:01:50 12/30/19 24 12/30/2023 CBC/C OMPLE TE BLD COUNT W/DIF F mean red cell volume 96.6 fL 82.0-9 9.0 Not Available [facility] (Lab) [address] [place], [address], 12/30/2023 19:01:50 12/30/19 24 12/30/2023 CBC/C OMPLE TE BLD COUNT W/DIF F mean red cell hemoglobin 32.7 pg 27.0-3 3.0 Not Available [facility] (Lab) [address] [place], [address], 12/30/2023 19:01:50 12/30/19 24 12/30/2023 CBC/C OMPLE TE BLD COUNT W/DIF F mean RBC HGB concentratio n 33.9 g/dL 31.0-3 6.0 Not Available [facility] (Lab) [address] [place], [address], 12/30/2023 19:01:50 12/30/19 24 12/30/2023 CBC/C OMPLE TE BLD COUNT W/DIF F red cell distribution width 12.8 % 11.8-1 5.5 Not Available [facility] (Lab) [address] [place], [address], 12/30/2023 19:01:50 12/30/19 24 12/30/2023 CBC/C OMPLE TE BLD COUNT W/DIF F platelets 149 x10'3 /uL 150-40 0 low Not Available [facility] (Lab) [address] [place], [address], 12/30/2023 19:01:50 12/30/19 24 12/30/2023 CBC/C OMPLE TE BLD COUNT W/DIF F mean platelet volume 11.7 fL 9.0-12 .4 Not Available [facility] (Lab) [address] [place], [address], 12/30/2023 19:01:50 12/30/19 24 12/30/2023 CBC/C OMPLE TE BLD COUNT W/DIF F neutrophils 65.4 % 39.0-7 2.0 Not Available [facility] (Lab) [address] [place], [address], 12/30/2023 19:01:50 12/30/19 24 12/30/2023 CBC/C OMPLE TE BLD COUNT W/DIF F lymphocytes 17.9 % 16.0-4 7.0 Not Available [facility] (Lab) [address] [place], [address], 12/30/2023 19:01:50 12/30/19 24 12/30/2023 CBC/C OMPLE TE BLD COUNT W/DIF F monocytes 10.3 % 5.0-12 .0 Not Available [facility] (Lab) [address] [place], [address], 12/30/2023 19:01:50 12/30/19 24 12/30/2023 CBC/C OMPLE TE BLD COUNT W/DIF F eosinophils 5.4 % 1.0-7. 0 Not Available [facility] (Lab) [address] [place], [address], 12/30/2023 19:01:50 12/30/19 24 12/30/2023 CBC/C OMPLE TE BLD COUNT W/DIF F basophils 0.7 % 0.0-2. 0 Not Available [facility] (Lab) [address] [place], [address], 12/30/2023 19:01:50 12/30/19 24 12/30/2023 CBC/C OMPLE TE BLD COUNT W/DIF F immature granulocytes 0.3 % 0.00-0 .50 Not Available [facility] (Lab) [address] [place], [address], 12/30/2023 19:01:50 12/30/19 24 12/30/2023 CBC/C OMPLE TE BLD COUNT W/DIF F neutrophils, absolute count 4.87 x10'3 /uL 1.5-8. 0 Not Available [facility] (Lab) [address] [place], [address], 12/30/2023 19:01:50 12/30/19 24 12/30/2023 CBC/C OMPLE TE BLD COUNT W/DIF F lymphocytes, absolute count 1.33 x10'3 /uL 1.07-3 .43 Not Available [facility] (Lab) [address] [place], [address], 12/30/2023 19:01:50 12/30/19 24 12/30/2023 CBC/C OMPLE TE BLD COUNT W/DIF F monocytes, absolute count 0.77 x10'3 /uL 0.29-0 .99 Not Available [facility] (Lab) [address] [place], [address], 12/30/2023 19:01:50 12/30/19 24 12/30/2023 CBC/C OMPLE TE BLD COUNT W/DIF F eosinophils, absolute count 0.40 x10'3 /uL 0.02-0 .53 Not Available [facility] (Lab) [address] [place], [address], 12/30/2023 19:01:50 12/30/19 24 12/30/2023 CBC/C OMPLE TE BLD COUNT W/DIF F basophils, absolute count 0.05 x10'3 /uL 0.01-0 .08 Not Available [facility] (Lab) [address] [place], [address], 12/30/2023 19:01:50 12/30/19 24 12/30/2023 CBC/C OMPLE TE BLD COUNT W/DIF F immature granulocytes ,absolute 0.02 x10'3 /uL 0.00-0 .05 Not Available [facility] (Lab) [address] [place], [address], 12/30/2023 19:01:50 12/30/19 24 12/30/2023 CBC/C OMPLE TE BLD COUNT W/DIF F nucleated red blood cells 0.0 % -0 Not Available [facility] (Lab) [address] [place], [address], 12/30/2023 19:01:50 12/30/19 24 12/30/2023 CBC/C OMPLE TE BLD COUNT W/DIF F NRBC# 0.00 x10'3 /uL Not Available [facility] (Lab) [address] [place], [address], 12/30/2023 19:01:50 12/30/19 24 12/30/2023 VITAM IN D 25-HY DROXY vd25oh 52.6 NG/mL 30-100 Vitam in D Statu s: Defic ient: <20 ng/mL Insuf ficie nt: 20-29 ng/mL Suffi cient : 30-10 0 ng/mL Not Available [facility] (Lab) [address] [place], [address], 12/30/2023 19:08:49 12/30/19 24 12/30/2023 TSH thyroid-stim ulating hormone 2.440 uIU/m L 0.465- 4.680 Not Available [facility] (Lab) [address] [place], [address], 12/30/2023 19:09:11 12/30/19 24 12/30/2023 VITAM IN B12 (SHIRA LUIS ALBERTO ) vb12 553 pg/mL 239-93 1 Not Available [facility] (Lab) [address] [place], [address], 12/30/2023 20:04:29 12/30/19 24 12/30/2023 FOLAT E, SERUM /PLAS MA folate 16.4 NG/mL 2.76-2 0.0 Not Available [facility] (Lab) [address] [place], [address], 12/30/2023 21:04:30 10/06/20 23 10/06/2023 XR, chest No observ ation record ed. [address], [address], 10/06/2023 14:31:28 10/06/20 23 10/06/2023 XR, hip + pelvi s, unila teral No observ ation record ed. [address] [address], [place], [address], 10/06/2023 14:31:56 10/06/20 23 10/06/2023 CT, head, w/o contr ast No observ ation record ed. [address] [address], [place], [address], 10/06/2023 14:32:56 10/06/20 23 10/06/2023 CT, cervi dilan spine , w/o contr ast No observ ation record ed. [address] [address], [place], [address], 10/06/2023 14:33:19 10/06/20 23 10/06/2023 CT, lumba r spine , w/o contr ast No observ ation record ed. [address] [facility] [address], [place], [address], 10/06/2023 14:33:46 10/06/20 23 10/06/2023 CT, abdom en, w/o contr ast No observ ation record ed. [address] [facility] [address], [place], [address], 10/06/2023 14:34:08 11/10/19 24 08/05/2023 US, echoc ardio gram, trans thora cic, compl ete, w/ color flow No observ ation record ed. [facility] Scheduling) [address] [place], [address], 11/10/2023 18:23:53 11/12/19 24 11/12/2023 DEXA, axial skele ton [facility] [address] [place] [address] Patien t Name: MIRIAM SMITH Access ion #: [id number] Sex: F : 1944 7 Dictat ed By: Roxane Ding Attend ing Physic donavon: [facility] Physic don[facility]on: SURINDER NGO Exam Date: 2023 13:07 PM Exam Name: XR DEXA-H IPS PELVIS SPINE Admitt ing Diagno sis(es ): INDICA TION: osteop orosis , screen ing DEXA SCAN: BONE DENSIT Y REPORT : AP SPINE (L1-L4 ) : T Score: -0.5 LEFT HIP TOTAL : T Score: -2.8 RT HIP TOTAL : T Score: -3.3 TOTAL BILAT HIP AVG: T Score: -3.0 10 YEAR FRACTU RE RISK* not provid ed IMPRES DARLENE: 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 2. Normal bone minera l densit y of the lumbar spine. ------ ------ ------ ------ ------ ------ ------ ------ ----- *FRAX versio n 3.08. Fractu re probab ility calcul ated for an untrea marcie patien t. Fractu re probab ility may be lower if the patien t has receiv ed treatm ent. T-scor e: compar susie by summer vang deviat ion (SD) to a young adult popula tion, matche d for sex and ethnic ity (used for postme nopaus al women and men >50 years) and classi fied by WHO criter ia. -1.0: normal <-1.0 to >-2.5: osteop enia -2.5: osteop orosis Page 1 [facility] [address] [place] [address] Patiernie t Name: KLARISSAMIRIAM CASTORENA Access ion #: [id number] Sex: F : 1944 7 Dictat ed By: Roxane Ding Attend ing Physic donavon: [facility] Physic donavon: SUR[employer] Exam Date: 2023 13:07 PM Exam Name: XR DEXA-H IPS PELVIS SPINE Admitt ing Diagno sis(es ): -2.5 plus fragil ity fractu re: severe osteop orosis Z-scor e: compar ed by SD to an age, sex, and ethnic ity popula tion (used for premen opausa l women, men <50 years, and childr en instea d of T-scor e WHO criter ia 4) <-2.0: below expect ed range/ low bone densit y for age, and a cause should be sought Electr onical ly Signed by: Roxane Ding at 2023 14:04: 17 PM Page 2 [email or web address] [facility] ([facility]) [address] [place], [address], 11/25/2023 15:56:12 11/12/19 24 11/12/2023 DEXA No observ ation record ed. [facility] [address], [place], [address], 11/25/2023 15:56:12 11/12/19 24 11/12/2023 scree sara breas t niurka, bilat [facility] [address] [facility] [address], [place] [address] [phone] Patiernie t Name: TOM ZELAYA, MIRIAM Access ion #: [id number] Sex: F : 1944 7 Dictat ed By: Roxane Ding Attend ing Physic donavon: SURIND[employer] NGO Orderi ng Physic donavon: SURINDER NGO Exam Date: 2023 13:07 PM Exam Name: MG ROCKYN BREAST NIURKA BILAT Admitt ing Diagno sis(es ): SCREEN ING MAMMOG JILL WITH TOMOSY NTHESI S: REASON FOR EXAM: screen ing mammog jill COMPAR SUSIE: 19 TECHNI QUE: Bilate ral CC and MLO views obtain ed. Images were obtain ed using a Digita l Tomosy nthesi s Unit. Standa rd 2D and 3D Tomosy nthesi s images were review ed. FINDIN GS: BREAST COMPOS ITION: There are scatte red areas of fibrog landul ar densit y in the bilate ral breast s. In the right breast , no asymme trical parenc hymal patter n, fouzia ectura l distor tion, pleomo rphic microc alcifi cation s or masses . In the left breast , no asymme trical parenc hymal patter n, fouzia ectura l distor tion, pleomo rphic microc alcifi cation s or masses . IMPRES DARLENE: No findin gs of malign luis antonio. Recomm end annual mammog jill. BIRADS : 2 - Benign Electr onical ly Signed by: Roxane Ding at 2023 14:20: 00 PM Page 1 [email or web address] [facility] (Imaging) [address] [place], [address], 11/25/2023 15:56:13 11/12/19 24 11/12/2023 MAMMO , scree sara, digit al, bilat eral No observ ation record ed. [email or web address] [facility] [address] [place], [address], 11/25/2023 15:56:13 11/12/19 24 11/12/2023 XR, lumba r spine No observ ation record ed. [address] [facility], [place], [address], 06/19/2024 17:51:23 12/27/19 24 12/27/2023 XR, lumba r spine No observ ation record ed. [address] [address], [place], [address], 06/20/2024 16:16:14 02/21/20 24 02/21/2024 XR, chest No observ ation record ed. [address] [address], [place], [address], 06/21/2024 10:32:05 02/21/20 24 02/21/2024 CT, chest + abdom en + pelvi s, w/ contr ast No observ ation record ed. [address] [address], [place], [address], 06/21/2024 10:33:58 Result Notes None recorded. Problems Name Problem SNOMED Code Status Onset Date Resolution Date Notes Provider Name and Address Organization Details Recorded Time Benign essential hypertensi on 1328755 Active Not Available [facility] 3 19:41:15 Osteoarthr itis of knee 451849325 Active Not Available [facility] 3 19:41:15 Pure hyperchole sterolemia 214738417 Active Not Available [facility] 3 19:41:15 Bronchitis 73885997 Completed Not Available [facility] 3 12:52:19 Pernicious anemia 15241194 Active 2017 Not Available [facility] 3 19:41:15 Osteoporos is 22251833 Active 2022 Not Available [facility] 3 19:41:15 Migraine 02828183 Active 2022 Not Available [facility] 3 19:41:15 Coronary atheroscle rosis 772317117 Active 2022 Not Available [facility] 3 19:41:15 Interstiti al lung disease 975602627 Active 2022 Not Available [facility] 3 19:41:15 Idiopathic pulmonary fibrosis 778096183 Active 2023 Varun south MD [address], [place], [address] , [facility] 4 16:38:11 Essential hypertensi on 32176987 Active 2023 Varun south MD [address], [place], [address] , [facility] 4 16:38:16 Traumatic brain injury 927506641 Active 2023 Varun south MD [address], [place], [address] , [facility] 4 17:05:58 Hyperlipid emia 34961712 Active 2023 Varun south MD [address], [place], [address] , [facility] 4 17:07:52 Chronic kidney disease 972327591 Active 2023 Yris Forbes MA [facility] [place] [facility] 4 14:12:33 Coronary arterioscl erosis 05475638 Active 2023 Varun south MD [address], [place], [address] , [employer] [facility] 4 16:17:02 Serum vitamin B12 below reference range 854199266 Active 2023 Varun south MD [address], [place], [address] , [facility] [employer] 4 16:17:02 Low back pain 361711422 Active 2023 Varun south MD [address], [place], [address] , [employer] 4 16:53:44 Upper respirator y infection 88530768 Active 2024 Varun south MD [address], [address] [address], [place], [address] , [employer] 5 16:33:33 Notes:Medical History: Postt raumatic encephalomalacia Migraine headaches COVID infections 08/2021, 12/2021 RSV infection 08/2023 Rhinitis with postnasal drip Eosinophils 270/uL IgE 11 IU/mL AAT PiMM 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 Procedures Surgical History Date Name Laterality Status Provider Name and Address Organization Details Recorded Time 4 Medicare Wellness CPT Code, subsequent completed Bud Benjamin LPN [place] [employer] [place] [facility] [employer] 05/17/2024 08:08:28 3 Medicare Wellness CPT Code, subsequent completed Corie Benito RN [place] [employer] [place] [facility] [employer] 03/17/2023 15:37:57 Imaging Results Imaging Date Name Status LastModified by Organiz ation Details LastModified Time 10/06/2023 XR, chest completed [address], [place], [address], 10/06/2023 14:31:28 10/06/2023 XR, hip + pelvis, unilateral completed [address], [place], [address], 10/06/2023 14:31:56 10/06/2023 CT, head, w/o contrast completed [address] [facility], [place], [address], 10/06/2023 14:32:56 10/06/2023 CT, cervical spine, w/o contrast completed [address], [place], [address], 10/06/2023 14:33:19 10/06/2023 CT, lumbar spine, w/o contrast completed [address] [facility], [place], [address], 10/06/2023 14:33:46 10/06/2023 CT, abdomen, w/o contrast completed [address] [facility], [place], [address], 10/06/2023 14:34:08 08/05/2023 US, echocardiogram, transthoracic, complete, w/ color flow completed [facility] ([facility] Scheduling) [address] [place], [address], 11/10/2023 18:23:53 11/12/2023 DEXA, axial skeleton completed [address] (Imaging) [address] [place], [address], 11/25/2023 15:56:12 11/12/2023 DEXA completed [address] [place], [address], 11/25/2023 15:56:12 11/12/2023 screening breast niurka, bilat completed [address] (Imaging) [address] [place], [address], 11/25/2023 15:56:13 11/12/2023 MAMMO, screening, digital, bilateral completed [address] [place], [address], 11/25/2023 15:56:13 11/12/2023 XR, lumbar spine completed [address], [address], 06/19/2024 17:51:23 12/27/2023 XR, lumbar spine completed [address], [address], 06/20/2024 16:16:14 02/21/2024 XR, chest completed [address], [address], 06/21/2024 10:32:05 02/21/2024 CT, chest + abdomen + pelvis, w/ contrast completed [address], [address], 06/21/2024 10:33:58 Procedure Notes None recorded. Medical Equipment None Reported. Allergies Allergen ID Allergen Name Allergen Category Reaction Reaction Severity Criticality Documentation Date Start Date Code Code System Note Provider Name and Address Organization Details Recorded Time 80451 Tricor medicatio n rash Not available Not available 12/09/2022 37874 6 RxNorm Not Available [facility] 3 12:59:43 38649 tetracycl ine medicatio n nausea Not available Not available 12/09/2022 25970 RxNorm Not Available [facility] 3 12:59:43 36264 morphine medicatio n nausea Not available Not available 12/09/2022 7052 RxNorm Not Available [facility] 3 12:59:43 55102 amoxicill in medicatio n hives Not available Not available 11/26/2023 723 RxNorm Quinton Alvarez MD [address], [place], [address], [facility] [employer] [facility] 4 11:38:41 [address]88[address] erythromy von medicatio n nausea Not available Not available 11/26/2023 4053 RxNorm Quinton Alvarez MD [address], [place], [address], [facility] [employer] [facility] 4 11:42:43 Medications Name Sig Start Date Stop Date Status Note LastModified by Organization Details LastModified Time atorvasta tin 40 mg tablet Take 1 tablet every day by oral route. active Not Available Not Available No t Available venlafaxi ne ER 37.5 mg capsule,e xtended release 24 hr 11/08 completed Not Available Not Available Not Available acetamino phen 325 mg tablet TAKE 2 TABLETS BY MOUTH EVERY 4 HOURS NEEDED FOR PAIN RATED 1-3 11/09 completed Not Available Not Available Not Available carvedilo l 6.25 mg tablet TK 1 T PO 2 TIMES A DAY WITH MEALS 05/17 completed Not Available Not Available Not Available prednison e 10 mg tablet Take by oral route. 12/14 completed Not Available Not Available Not Available doxycycli ne hyclate 100 mg capsule 11/09 completed Not Available Not Available Not Available atorvasta tin 20 mg tablet Take 1 tablet every day by oral route for 90 days. 05/17 completed Not Available Not Available Not Available carvedilo l 12.5 mg tablet Take 1 tablet twice a day by oral route. active Not Available Not Available No t Available atorvasta tin 10 mg tablet Take 1 tablet every day by oral route. 05/17 completed Not Available Not Available Not Available azithromy ovn 250 mg tablet FPD 12/14 completed Not Available Not Available Not Available hydrocodo ne 5 mg-acetam inophen 325 mg tablet 08/10 completed Not Available Not Available Not Available prednison e 20 mg tablet TAKE 2 TABLETS BY MOUTH EVERY DAY WITH FOOD FOR 5 DAYS 11/09 completed Not Available Not Available Not Available acetamino phen 300 mg-codein e 30 mg tablet 10/31 /2013 completed Not Available Not Available Not Available tramadol 50 mg tablet TAKE 1/2 TABLET BY MOUTH EVERY 6 HOURS NEEDED FOR PAIN 11/09 completed Not Available Not Available Not Available carvedilo l 3.125 mg tablet TK 1 T PO BID WITH MEALS 10/26 completed Not Available Not Available Not Available Lasix 20 mg tablet Take 1 tablet every day by oral route as needed. 12/20 completed Not Available Not Available Not Available cephalexi n 500 mg capsule TAKE 1 CAPSULE BY MOUTH EVERY 12 HOURS 11/09 completed Not Available Not Available Not Available erythromy von 5 mg/gram (0.5 %) eye ointment active Not Available Not Available Not Available cyanocoba luis alberto (vit B-12) 1,000 mcg/mL injection solution Inject 1 mL every month by intramus cular route as directed for 30 days. 09/02 completed Not Available Not Available Not Available tobramyci n 0.3 % eye drops INSTILL 1 DROP INTO RIGHT EYE BID 08/25 completed Not Available Not Available Not Available metoprolo l tartrate 50 mg tablet TK 1 T PO BID 07/[address] Jensen t Not Available Not Available Not Available nitroglyc david 0.4 mg sublingua l tablet PLACE 1 TABLET UNDER THE TONGUE EVERY 5 MINUTES NEEDED FOR CHEST PAIN. MAY REPEAT DOSE FOR UP TO 3 TIMES. UPON 3RD DOSE CALL 911 active Not Available Not Available No t Available hydrocodo ne 5 mg-acetam inophen 500 mg tablet 08/10 completed Not Available Not Available Not Available ergocalci ferol (vitamin D2) 1,250 mcg (50,000 unit) capsule 08/10 completed Not Available Not Available Not Available clobetaso l 0.05 % topical ointment 09/02 completed Not Available Not Available Not Available azelastin e 137 mcg (0.1 %) nasal spray USE 1 SPRAY IN EACH NOSTRIL EVERY 12 HOURS active Not Available Not Available No t Available levofloxa von 750 mg tablet Take 1 tablet every day by oral route for 7 days. 2024 active Not Available Not Available Not Avai lable ondansetr on 4 mg disintegr ating tablet 08/10 completed Not Available Not Available Not Available fluticaso ne propionat e 50 mcg/actua tion nasal spray,roseann pension SPRAY 2 SPRAYS IN EACH NOSTRIL Q EVENING 12/14 completed Not Available Not Available Not Available Pneumovax -23 25 mcg/0.5 mL injection syringe 07/22 completed Not Available Not Available Not Available Crestor 10 mg tablet Take 1 tablet every day by oral route. 05/09 completed Not Available Not Available Not Available metoprolo l tartrate 25 mg tablet 07/06 completed Not Available Not Available Not Available nitrofura ntoin monohydra te/macroc rystals 100 mg capsule TAKE 1 CAPSULE BY MOUTH TWICE DAILY FOR 5 DAYS 09/30 completed Not Available Not Available Not Available calcium 09/02 completed Not Available Not Available Not Available multivita min 09/02 completed Not Available Not Available Not Available ProAir HFA 90 mcg/actua tion aerosol inhaler Inhale 2 puffs every 4 hours by inhalati on route. 05/09 completed Not Available Not Available Not Available Symbicort 160 mcg-4.5 mcg/actua tion HFA aerosol inhaler Inhale 2 puffs twice a day by inhalati on route. 11/09 completed Not Available Not Available Not Available Prolia 60 mg/mL subcutane ous syringe Inject 1 mL by subcutan eous route. 2023 active Not Available Not Available Not Avai lable Tudorza Pressair 400 mcg/actua tion breath activated Inhale 1 puff every 12 hours by inhalati on route. 05/09 completed Sample Qty: 1. pt received samples Not Available Not Available Not Available Fluzone High-Dose 6452-5742 (PF) 180 mcg/0.5 mL intramusc ular syringe 07/22 completed Not Available Not Available Not Available Fluzone High-Dose (PF) 180 mcg/0.5 mL intramusc ular syringe ADM 0.5ML IM UTD 10/26 completed Not Available Not Available Not Available Ubrelvy 100 mg tablet Take 1 tablet as needed by oral route. active Not Available Not Available No t Available Nurtec ODT 75 mg disintegr ating tablet Take by oral route. 05/17 completed Not Available Not Available Not Available BinaxNOW COVID-19 Ag Self Test kit Use as Directed on the Package 12/02 completed Not Available Not Available Not Available Vitals Date Recorded Body height Body mass index (BMI) Body weight Body temperature Heart rate Systolic blood pressure Diastolic blood pressure Provider Name and Address Organization Details Last Updated DateTime 4 170.18 cm 21.1 kg/m2 86773.9 7 g 97.1 [degF] 72 /min 136 mm[Hg] 72 mm[Hg] Varun fulton MD [address] [facility], [place], [address], [place] [facility] [employer] 4 17:14:26 Date Recorded Body height Body mass index (BMI) Body weight Body temperature Systolic blood pressure Diastolic blood pressure Provider Name and Address Organization Details Last Updated DateTime 4 170.18 cm 21.5 kg/m2 30587.1 5 g 97.8 [degF] 136 mm[Hg] 86 mm[Hg] Celine Edge MA [place] [employer] [place] [facility] [employer] 4 15:43:44 Date Recorded Heart rate Oxygen saturation Oxygen saturation in Arterial blood by Pulse oximetry Heart rate Respiratory rate Provider Name and Address Organization Details Last Updated DateTime 4 100 /min 94 % 94 % 100 /min 14 /min Quinton Alvarez MD [address] [facility], [place], [address], [employer] 4 16:09:22 Date Recorded Body height Body mass index (BMI) Body weight Body temperature Heart rate Systolic blood pressure Diastolic blood pressure Provider Name and Address Organization Details Last Updated DateTime 4 170.18 cm 21 kg/m2 81509.3 8 g 97.2 [degF] 72 /min 142 mm[Hg] 72 mm[Hg] KENIA White [place] [employer] [place] [employer] 4 16:27:41 Date Recorded Body height Provider Name an d Address Organization Details Last Updated DateTime 05/17/2024 170.18 cm KENIA White [place] [employer] [place] [facility] [employer] 05/17/2024 13:57:52 Date Recorded Body mass index (BMI) Body weight Body temperature Heart rate Respiratory rate Oxygen saturation Oxygen saturation in Arterial blood by Pulse oximetry Systolic blood pressure Diastolic blood pressure Provider Name and Address Organization Details Last Updated DateTime 4 21.6 kg/m2 86077.7 5 g 98 [degF] 82 /min 20 /min 93 % 93 % 152 mm[Hg] 80 mm[Hg] Bud Benjamin LPN [facility] [employer] [facility] 4 14:03:11 Date Recorded Body height Body mass index (BMI) Body weight Body temperature Heart rate Systolic blood pressure Diastolic blood pressure Provider Name and Address Organization Details Last Updated DateTime 5 170.18 cm 20.7 kg/m2 78273.1 9 g 97.2 [degF] 72 /min 128 mm[Hg] 76 mm[Hg] KENIA White [facility] [employer] 5 15:51:47 Social History Question Answer Notes LastModified by Organization Details LastModified Time Tobacco Smoking Status Never Smoker Not Available [facility] 12/09/2022 12:46:33 Do You Have An Advance Directive? Yes [id number].0301 [id number] Information not available 12/09/2022 What Is Your Level Of Alcohol Consumption? None MIGRATION.0301 [id number] Information not available 12/09/2022 Are You Blind Or Do You Have Difficulty Seeing? No MIGRATION.0301 [id number] Information not available 12/09/2022 Is Blood Transfusion Acceptable In An Emergency? Yes [email or web address] Information not available 05/17/2024 What Is Your Level Of Caffeine Consumption? Moderate MIGRATION.0301 [id number] Information not available 12/09/2022 What Is Your Code Status? Full Code Information not available 05/17/2024 In The 14 Days Before Symptom Onset, Have You Had Close Contact With A Laboratory-confi rmed COVID-19 While That Case Was Ill? No MIGRATION.0301 [id number] Information not available 12/09/2022 In The 14 Days Before Symptom Onset, Have You Had Close Contact With A Person Who Is Under Investigation For COVID-19 While That Person Was Ill? No MIGRATION.0301 [id number] Information not available 12/09/2022 Are You Currently Employed? No [email or web address] Information not available 05/17/2024 Are You Deaf Or Do You Have Serious Difficulty Hearing? No MIGRATION.0301 [id number] Information not available 12/09/2022 What Type Of Diet Are You Following? REGULAR MIGRATION.0301 [id number] Information not available 12/09/2022 What Is The Highest Grade Or Level Of School You Have Completed Or The Highest Degree You Have Received? [id number] MIGRATION.0301 [id number] Information not available 12/09/2022 How Many Days Of Moderate To Strenuous Exercise, Like A Brisk Walk, Did You Do In The Last 7 Days? 0 [email or web address] Information not available 05/17/2024 Have There Been Any Changes To Your Family Or Social Situation? No MIGRATION.0301 [id number] Information not available 12/09/2022 What Is The Fluoride Status Of Your Home? Unknown MIGRATION.0301 [id number] Information not available 12/09/2022 Are There Any Guns Present In Your Home? No MIGRATION.0301 [id number] Information not available 12/09/2022 Do You Have A Humidifier? No MIGRATION.0301 [id number] Information not available 12/09/2022 Do You Use Insect Repellent Routinely? No MIGRATION.0301 [id number] Information not available 12/09/2022 Where Do You Live? SingleLevelHouse With Basement Information not available 03/17/2023 Advance Directive- Providers Has Reviewed Directive And Consents To Follow Them (insert Provider Name With Any Objectives In Notes Field) Yes [email or web address] Information not available 05/17/2024 Presence Of Domestic Violence No Information not available 03/17/2023 Guns Present In The Home? No Information not available 03/17/2023 Are You Able To Care For Yourself? Yes Information not available 03/17/2023 Are You Blind Or Do Yo Have Difficulty Seeing? No Information not available 03/17/2023 Are You Deaf Or Do You Have Serious Difficulty Hearing? No Information not available 03/17/2023 General Stress Level? Low Information not available 03/17/2023 Live Alone Of With Others? With Others Information not available 03/17/2023 Do You Have A Medical Power Of Build Engineer? Yes [place] House Daughter TIFFANY [email or web address] Information not available 05/17/2024 Do You Have Moisture Problems In Your Home? No MIGRATION.0301 [id number] Information not available 12/09/2022 What Was The Date Of Your Most Recent Tobacco Screening? 11/08/2024 [email or web address] Information not available 11/08/2024 How Many Children Do You Have? 4 Information not available 05/17/2024 Do You Have Any Pets? Yes Dog Information not available 05/17/2024 What Is Your Relationship Status? Information not available 03/17/2023 Do You Use Your Seat Belt Or Car Seat Routinely? Yes [email or web address] Information not available 11/09/2023 Are You Sexually Active? No Information not available 05/17/2024 Do You Have Smoke And Carbon Monoxide Detectors In Your Home? Yes MIGRATION.0301 [id number] Information not available 12/09/2022 Are You Passively Exposed To Smoke? No MIGRATION.0301 [id number] Information not available 12/09/2022 Are There Any Smokers In Your House? No MIGRATION.0301 [id number] Information not available 12/09/2022 What Types Of Sporting Activities Do You Participate In? None Information not available 05/17/2024 Do You Feel Stressed (tense, Restless, Nervous, Or Anxious, Or Unable To Sleep At Night)? [id number] MIGRATION.0301 [id number] Information not available 12/09/2022 Do You Use Any Illicit Or Recreational Drugs? No MIGRATION.0301 [id number] Information not available 12/09/2022 Do You Use Sunscreen Routinely? No MIGRATION.0301 [id number] Information not available 12/09/2022 Has Tobacco Cessation Counseling Been Provided? No Information not available 03/17/2023 Have You Recently Traveled Abroad? No MIGRATION.[id number] Information not available 12/09/2022 Do You Have Any Dietary Restrictions? No MIGRATION.0301 [id number] Information not available 12/09/2022 Do You Or Have You Ever Used Any Other Forms Of Tobacco Or Nicotine? No MIGRATION.0301 [id number] Information not available 12/09/2022 Sex: Unknown Functional Status Question Answer Note LastModified by Organizat ion Details LastModified Time Do you have difficulty walking or climbing stairs? Yes SOB MIGRATION.[id number] Information not available 12/09/2022 Do you have transportation difficulties? No MIGRATION.[id number] Information not available 12/09/2022 Are you able to walk? YESWOREST MIGRATION.036383 [id number] Information not available 12/09/2022 Do you have difficulty doing errands alone? Yes does not drive Information not available 03/17/2023 Are you able to care for yourself? Yes MIGRATION.[id number] Information not available 12/09/2022 Do you have difficulty dressing or bathing? No MIGRATION.[id number] Information not available 12/09/2022 What is your exercise level? None MIGRATION.[id number] Information not available 12/09/2022 Mental Status Question Answer Note LastModified by Organizat ion Details LastModified Time Do you have difficulty concentrating, remembering or making decisions? Yes TBI MIGRATION.[id number] Information not available 12/09/2022 Family History Relationship Description Onset Age of this Age Resolved Age Notes LastModified by Organization Details LastModified Time Father Diabetes mellitus [id number] Not available 12/09/2022 12:46:43 Mother Heart disease MIGRATION.417 [id number] Not available 12/09/2022 12:46:43 Maternal Grandmother Malignant tumor of stomach frivastorres Not available 15:43:13 Mother Cerebrovascu lar accident frivastorres Not available 11/08/2024 15:43:13 Sister Cerebrovascu lar accident frivastorres Not available 11/08/2024 15:43:13 Daughter Jodi thyroiditis frivastorres Not available 0 11/08/2024 15:43:13 Medical History No medical history recorded. Gynecological HistoryNo gynecological history recorded. Obstetrics History GPAL:G 0 P 0 0 0 0 Immunizations Vaccine Type Date Status Note Provider Nam e and Address Organization Details Recorded Time COVID-19, mRNA, LNP-S, PF, 50 mcg/0.5 mL 4 completed SAGAR Aceves, BERNADINE FRYE [employer] 05/17/2024 08:23:29 Pneumococcal conjugate PCV20, polysaccharide IGY606 conjugate, adjuvant, PF 4 completed SAGAR Aceves, [facility] 05/17/2024 08:23:29 Influenza, high-dose, quadrivalent, PF 1 completed Bud Benjamin LPN null, [facility] 05/17/2024 08:23:29 Influenza, high-dose, quadrivalent, PF 2 completed Bud Benjamin LPN null, [facility] 05/17/2024 08:23:29 Influenza, high-dose, quadrivalent, PF 3 completed Bud Benjamin LPN null, [facility] 05/17/2024 08:23:29 COVID-19, mRNA, LNP-S, bivalent, PF, 50 mcg/0.5 mL or 25mcg/0.25 mL dose 3 completed Bud Benjamin LPN null, [facility] 05/17/2024 08:23:29 Influenza, high-dose, trivalent, PF 9 completed Bud Benjamin LPN bj, [facility] 05/17/2024 08:23:29 Influenza, split virus, trivalent, preservative 3 completed Bud Benjamin LPN null, [facility] 05/17/2024 08:23:29 Influenza, high-dose, quadrivalent, PF 2 completed Not Available [facility] 09/20/2023 23:38:29 Influenza, high-dose, quadrivalent, PF 9 completed Bud Benjamin LPN bj, [facility] 05/17/2024 08:23:29 Influenza, high-dose, trivalent, PF 7 completed Bud Benjamin LPN bj, [facility] 05/17/2024 08:23:29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
--- OUTSIDE RECORDS SUMMARY | 2024-11-09 11:57 | XMS_ITS ---
Author Organization [facility] Address [address] [place] [address] Care Team Providers Care Barrel Line Operator Name Role Phone Alex Jian Unavailable [phone] Encounters Encounter Location Date Provider Diagnosis [place] [facility] [address] [facility] [address] [place] [address] 03/22/2024 Jian Johnson Chronic kidney disease, stage 3 unspecified N18.30 ; Chronic fatigue, unspecified R53.82 ; Anxiety disorder, unspecified F41.9 ; Essential (primary) hypertension I10 and Edema, unspecified R60.9 ASSESSMENTS Encounter Date Diagnosis Assessment Notes Treatment Notes Treatment Clinical Notes Section Notes 03/22/2024 Chronic kidney disease, stage 3 unspecified (ICD-10 - N18.30) 03/22/2024 Chronic fatigue, unspecified (ICD-10 - R53.82) 03/22/2024 Anxiety disorder, unspecified (ICD-10 - F41.9) 03/22/2024 Essential (primary) hypertension (ICD-10 - I10) 03/22/2024 Edema, unspecified (ICD-10 - R60.9) PLAN OF TREATMENT No Information Progress Notes * Marek YADAVOB:[birth year] (79 yo F)Acc No.[id number]:03/22/2024 Progress Notes Patient:??Miriam YADAV Provider:??MD MEÑO, F.A.C.P, F.A.S .N. :1945?Age:78 Y?Sex:Fe male Date:03/22/2024 Address:[address] [place], [place] [id number] Subjective: * Chief Complaints: * ? * Medical History:?? Objective: Assessment: * Assessment: 1.??Chronic kidney disease, stage 3 unspecified - N18.30 (Primary)??2.??Chronic fatigue, unspecified - R53.82??3.??Anxiety disorder, unspecified - F41.9??4.??Essential (primary) hypertension - I10??5.??Edema, unspecified - R60.9?? Plan: * Treatment: * Billing Information: * Visit Code:?? 51809 Office Visit, Est Pt., Level 4. * Procedure Codes:?? * DIAL TEACHER Sign off status: Pending * Provider:??MD MEÑO, F.A.C.P, F.A.S .N. Date:??03/22/2024
--- OUTSIDE RECORDS SUMMARY | 2024-11-09 11:57 | XMS_ITS | Patient Health Record ---
Author Organization [facility] Address [address] [facility] [address] [facility] [address] [place] [address] Care Team Providers Care Quality Assurance Coordinator Name Role Phone Alex Jian Unavailable [phone] REASON FOR REFERRAL No Information PROBLEMS Problem Type ICD Code Onset Dates Problem Status W/U Status Risk SNOMED Code Notes Problem Anxiety disorder, unspecified (F41.9) Active confirmed Anxiety disorde r (515001323) Problem Essential (primary) hypertension (I10) Active confirmed Essential hypertension (17743833) Problem Chronic fatigue, unspecified (R53.82) Active confirmed Chronic fatigue syndrome (disorder) (14195113) Problem Edema, unspecified (R60.9) Active confirmed Edema (11381132) Problem Chronic kidney disease, stage 3 unspecified (N18.30) Active confirmed Chronic kidney disease stage 3 (disorder) (139479596) Encounters Encounter Location Date Provider Diagnosis [facility] [address] [place] [address] 02/04/2024 Jian Johnson Chronic kidney disease, stage 3 unspecified N18.30 ; Chronic fatigue, unspecified R53.82 ; Anxiety disorder, unspecified F41.9 ; Essential (primary) hypertension I10 and Edema, unspecified R60.9 [place] [facility] [address] [facility] [address] [place] [address] 03/22/2024 Jian Johnson Chronic kidney disease, stage 3 unspecified N18.30 ; Chronic fatigue, unspecified R53.82 ; Anxiety disorder, unspecified F41.9 ; Essential (primary) hypertension I10 and Edema, unspecified R60.9 ASSESSMENTS Encounter Date Diagnosis Assessment Notes Treatment Notes Treatment Clinical Notes Section Notes 02/04/2024 Chronic kidney disease, stage 3 unspecified (ICD-10 - N18.30) 03/22/2024 Chronic kidney disease, stage 3 unspecified (ICD-10 - N18.30) 03/22/2024 Chronic fatigue, unspecified (ICD-10 - R53.82) 02/04/2024 Chronic fatigue, unspecified (ICD-10 - R53.82) 02/04/2024 Anxiety disorder, unspecified (ICD-10 - F41.9) 03/22/2024 Anxiety disorder, unspecified (ICD-10 - F41.9) 03/22/2024 Essential (primary) hypertension (ICD-10 - I10) 02/04/2024 Essential (primary) hypertension (ICD-10 - I10) 02/04/2024 Edema, unspecified (ICD-10 - R60.9) 03/22/2024 Edema, unspecified (ICD-10 - R60.9) PLAN OF TREATMENT No Information
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
--- OUTSIDE RECORDS SUMMARY | 2024-11-09 11:58 | XMS_ITS | Clinical Summary ---
Author Organization [facility] Address [address] [place] [address] Phone Care Team Providers Care Digital Learning Platforms Manager Name Role Phone Varun More MD Primary Care Provider Social History Tobacco Use Types Packs/Day Years Used Date Smoking Tobacco: Never Assessed Comments Unknown Sex and Gender Information Value Date Recorded Sex Assigned at Not on file Legal Sex Female 10:42 AM CDT Gender Identity Not on file Sexual Orientation Not on file Last Filed Vital Signs Vital Sign Reading Time Taken Comments Blood Pressure 169/83 06/23/2024 2:34 PM CDT Pulse 89 06/23/2024 2:34 PM CDT Temperature 36.7 ??C (98.1 ??F) 06/23/2024 2:34 PM CD T Respiratory Rate 16 06/23/2024 2:34 PM CDT Oxygen Saturation 96% 06/23/2024 2:34 PM CDT Inhaled Oxygen Concentration - - Weight - - Height - - Body Mass Index - - Plan of Treatment Health Maintenance Due Date Last Done Comments DEXA Bone Density 1945 Hepatitis C Virus (HCV) Screening 1945 TdaP Immunization 1945 Zoster Immunization (1 of 2) 1995 Respiratory Syncytial Virus (RSV) Immunization (Adult) (1 - 1-dose 75+ series) 2020 Influenza Immunization (#1) 06/11/202408/11, 08/11/2022, 07/09/2022, Additional history exists SARS-COV-2 Immunization ( season) 2024 01/18/2024, 11/25/2022, 12/16/2020 Pneumococcal Immunization (50+ years) Completed 01/18/2024, 07/03/2017, 09/24/2016 Hepatitis B Immunization Aged Out No longer eligible based on patient's age to complete this topic Meningococcal Immunization (ACWY) Aged Out No longer eligible based on patient's age to complete this topic Rotavirus Immunization Aged Out No lo nger eligible based on patient's age to complete this topic Insurance MEDICARE C [employer] Care Teams Digital Learning Platforms Manager Relationship Specialty Start Date End Date Varun More MD [address] [place] [address] PCP - General Internal Medicine 06/15/24
--- OUTSIDE RECORDS SUMMARY | 2024-11-09 11:58 | XMS_ITS ---
Author Organization [facility] Address [address] [facility] [address] [facility] [address] [place] [address] Care Team Providers Care Airborne Sensor Specialist Name Role Phone Johnson Jian Unavailable [phone] PROBLEMS Problem Type ICD Code Onset Dates Problem Status W/U Status Risk SNOMED Code Notes Problem Chronic kidney disease, stage 3 unspecified (N18.30) Active confirmed Chronic kidney disease stage 3 (disorder) (739457245) Problem Chronic fatigue, unspecified (R53.82) Active confirmed Chronic fatigue syndrome (disorder) (96575791) Problem Anxiety disorder, unspecified (F41.9) Active confirmed Anxiety disorde r (353065728) Problem Essential (primary) hypertension (I10) Active confirmed Essential hypertension (68750122) Problem Edema, unspecified (R60.9) Active confirmed Edema (97529068) Encounters Encounter Location Date Provider Diagnosis [address] [address] [place] [address] 02/04/2024 Jian Johnson Chronic kidney disea se, stage 3 unspecified N18.30 ; Chronic fatigue, unspecified R53.82 ; Anxiety disorder, unspecified F41.9 ; Essential (primary) hypertension I10 and Edema, unspecified R60.9 ASSESSMENTS Encounter Date Diagnosis Assessment Notes Treatment Notes Treatment Clinical Notes Section Notes 02/04/2024 Chronic kidney disease, stage 3 unspecified (ICD-10 - N18.30) 02/04/2024 Chronic fatigue, unspecified (ICD-10 - R53.82) 02/04/2024 Anxiety disorder, unspecified (ICD-10 - F41.9) 02/04/2024 Essential (primary) hypertension (ICD-10 - I10) 02/04/2024 Edema, unspecified (ICD-10 - R60.9) PLAN OF TREATMENT No Information Progress Notes * Marek TUTTLEOB:[birth year] (79 yo F)Acc No.[id number]:02/04/2024 Progress Notes Patient:??Miriam TUTTLE Provider:??MD MEÑO, Kimberly.Neisha.C.P, F.A.S .N. :1945?Age:78 Y?Sex:Fe male Date:02/04/2024 Address:[address] [place] [address] Subjective: * Chief Complaints: * ? * Medical History:?? Objective: Assessment: * Assessment: 1.??Chronic kidney disease, stage 3 unspecified - N18.30??2.??Chronic fatigue, unspecified - R53.82??3.??Anxiety disorder, unspecified - F41.9??4.??Essential (primary) hypertension - I10??5.??Edema, unspecified - R60.9?? Plan: * Treatment: * Billing Information: * Visit Code:?? 53634 Office Visit, New Pt., Level 5. * Procedure Codes:?? * NEYMAN PATTERNMAKER Sign off status: Pending * Provider:??MD MEÑO, Kimberly.Neisha.Arcenio.P, F.A.S .N. Date:??02/04/2024
[2024-11-09 13:30] VITALS: BP 146/65; PULSE 57; RESP 18; TEMP 36.6; O2SAT 98
--- OUTSIDE RECORDS SUMMARY | 2024-11-09 16:02 | XMS_ITS | Encounter Summary ---
Author Organization [facility] Address [address] [place] [address] Phone Care Team Providers Care Shredding Machine Operator Name Role Phone Melissa Palma NP Primary Care Provider [phone] Darien More MD Primary Care Provide r Encounter Details Date Type Department Care Team (Latest Contact Info) Description 08/05/2023 Orders Only [facility] Scanning, Provider Social History Tobacco Use Types Packs/Day Years Used Date Smoking Tobacco: Never Smokeless Tobacco: Never Alcohol Use Standard Drinks/Week Comments No 0 (1 standard drink = 0.6 oz pur e alcohol) Comments Unknown Sex and Gender Information Value Date Recorded Sex Assigned at Not on file Legal Sex Female 12:42 AM LEAF SUCKER OPERATOR Gender Identity Not on file Sexual Orientation Not on file documented as of this encounter Plan of Treatment Not on file documented as of this encounter Procedures Procedure Name Priority Date/Time Associated Diagnosis Comments SCAN - RADIOLOGY/IMAGING 08/05/2023 documented in this encounter Results * SCAN - RADIOLOGY/IMAGING (08/05/2023) Anatomical Region Laterality Modality Other us Provider Scanning Final Result documented in this encounter Visit Diagnoses Not on filedocumented in this encounter Care Teams Shredding Machine Operator Relationship Specialty Start Date End Date Melissa Palma NP PCP - General Nurse Practitioner 04/05/23 12/06/23 Darien More MD [address] [place] [address] PCP - General Internal Medicine 12/07/23 documented as of this encounter
--- OUTSIDE RECORDS SUMMARY | 2024-11-09 16:02 | XMS_ITS | Clinical Summary ---
Author Organization [facility] Address [address] [place] [address] Phone Care Team Providers Care Plunket Nurse Name Role Phone Varun More MD Primary [...] topic Insurance MEDICARE C [employer] Care Teams Plunket Nurse Relationship Specialty Start Date End Date Varun More MD [address] [place] [address] PCP - General Internal Medicine 06/15/24
--- OUTSIDE RECORDS SUMMARY | 2024-11-09 16:02 | XMS_ITS | Encounter Summary ---
Author Organization [facility] Address [address] [place] [address] Care Team Providers Care Single Needle Operator Name Role Phone Darien More MD Primary Care Provide r Encounter Details Date Type Department Care Team (Late st Contact Info) Description 02/21/2024 Orders Only [facility] Health Information Management [address] [place] [address] Scanning, Provider Social History Tobacco Use Types Packs/Day Years Used Date Smoking Tobacco: Never Smokeless Tobacco: Never Alcohol Use Standard Drinks/Week Comments No 0 (1 standard drink = 0.6 oz pur e alcohol) Comments Unknown Sex and Gender Information Value Date Recorded Sex Assigned at Not on file Legal Sex Female 12:42 AM ELECTRICAL LINEMAN Gender Identity Not on file Sexual Orientation Not on file documented as of this encounter Plan of Treatment Not on file documented as of this encounter Procedures Procedure Name Priority Date/Time Associated Diagnosis Comments SCAN - RADIOLOGY/IMAGING 02/21/2024 documented in this encounter Results * SCAN - RADIOLOGY/IMAGING (02/21/2024) Anatomical Region Laterality Modality Other us Provider Scanning Edited Result - Final documented in this encounter Visit Diagnoses Not on filedocumented in this encounter Care Teams Single Needle Operator Relationship Specialty Start Date End Date Darien More MD [address] [facility] [address] [place] [address] PCP - General Internal Medicine 12/07/23 documented as of this encounter
--- OUTSIDE RECORDS SUMMARY | 2024-11-09 16:02 | XMS_ITS | Encounter Summary ---
Author Organization [facility] Healthcare Address [address] [place] [address] Care Team Providers Care Ground Crewman Aircraft Support Name Role Phone Darien More MD Primary Care Provide r Reason for Visit * Reason Onset Date Comments Prior Auth 10/24/2024 Ubrelvy 100mg Encounter Details Date Type Department Care Team (Late st Contact Info) Description 10/24/2024 Telephone [facility] Neurology [address] [phone] Cande Payne NP [address] [place] [phone] Prior Auth (Ubrelvy 100mg) Social History Tobacco Use Types Packs/Day Years Used Date Smoking Tobacco: Never Passive Smoke Exposure: Past Smokeless Tobacco: Never Alcohol Use Standard Drinks/Week Comments No 0 (1 standard drink = 0.6 oz pur e alcohol) Comments Unknown Sex and Gender Information Value Date Recorded Sex Assigned at Not on file Legal Sex Female 12:42 AM SOURCE INSPECTOR Gender Identity Not on file Sexual Orientation Not on file documented as of this encounter Miscellaneous Notes * Telephone Encounter - Liana Bergman MA - 10/24/2024 9:25 AM CST PA was submitted for Ubrelvy 100mg and this is the response that was received. This medication or product was previously approved on [id number] from 2024-10-11 to 2025-10-10. Please note: This request was submitted electronically. Formulary lowering, tiering exception, cost reduction and/or pre-benefit determination review (including prospective Medicare hospice reviews) requests cannot be requested using this method of submission. Providers contact us at for further assistance. CE INSPECTOR documented in this encounter Plan of Treatment Not on file documented as of this encounter Visit Diagnoses Not on filedocumented in this encounter Care Teams Ground Crewman Aircraft Support Relationship Specialty Start Date End Date Darien More MD [address] [place] [address] PCP - General Internal Medicine 12/07/23 documented as of this encounter
--- OUTSIDE RECORDS SUMMARY | 2024-11-09 16:03 | XMS_ITS | Referral Summary ---
Author Organization [facility] [address] Address [address] [place] [address] Care Team Providers Care Hand Collator Name Role Phone Darien More MD Primary Care Provide r Encounters Date Type Department Care Team Description 10/24/2024 Telephone [facility] Neurology [address] [place] [phone] Cande Payne NP Prior Auth (Ubrelvy 100mg) 09/06/2024 10:00 AM SANITARIAN AIDE Office Visit [facility] [address] [place] [phone] Cande Payne NP Migraine without status migrainosus, not intractable, unspecified migraine type (Primary Dx); Gait disorder; Dizziness and giddiness from Last 3 Months Allergies Active Allergy Reactions Criticality Noted Date Comments Amoxicillin Hives,Sweating Medium 11/25/2023 Erythromycin Nausea & Vomiting,Na usea only Low 09/01/2017 Fenofibrate Nanocrystallized Other (See comments),Rash Medium 12/20/2023 Morphine Nausea & Vomiting,Na usea only,Other (See comments) Low 09/01/2017 Tetracycline Unknown,Nausea only,Other (See comments) Low 12/22/2022 Fenofibrate Micronized Rash Medium 09/01/2017 Medications aspirin 81 mg tablet Take 1 tablet (81 mg total) by mouth daily Active albuterol HFA (PROVENTIL HFA,VENTOLIN HFA,PROAIR HFA) 90 mcg/actuation inhaler Inhale 2 puffs every 6 (six) hours as needed for wheezing Active diphenhydrAMINE (BENADRYL) 25 mg capsule Take 1 tablet/capsule (25 mg total) by mouth every 6 (six) hours as needed for itching Active acetaminophen (TYLENOL) 325 mg tablet TAKE 2 TABLETS BY MOUTH EVERY 4 HOURS NEEDED FOR PAIN RATED 1-3 3 Active azelastine (ASTELIN) 137 mcg (0.1 %) nasal spray as needed Active nitroglycerin (NITROSTAT) 0.4 mg SL tabletIndication s:Coronary artery disease of [place] artery of [place] heart with stable angina pectoris (HCC) Place 1 tablet (0.4 mg total) under the tongue every 5 (five) minutes as needed for chest pain May repeat dose every 5 minutes for up to 3 doses total. 25 tablet 3 4 Active carvediloL (COREG) 12.5 mg tabletIndication s:Essential hypertension Take 1 tablet (12.5 mg total) by mouth 2 (two) times a day with meals 180 tablet 3 4 05/22/20 25 Active atorvastatin (LIPITOR) 40 mg tablet Take 1 tablet (40 mg total) by mouth daily 90 tablet 3 4 05/22/20 25 Active ubrogepant (Ubrelvy) 100 mg tablet Take 1 tablet (100 mg total) by mouth once as needed for migraine May repeat dose once in 2 hours if no relief. Do not exceed 2 doses in 24 hours. 10 tablet 11 4 05/16/20 25 Active Additional Information Patient not taking.Reported on 09/06/2024 denosumab (PROLIA) 60 mg/mL syringe Inject under the skin Every 6 months Active venlafaxine XR (EFFEXOR-XR) 37.5 mg 24 hr capsuleIndicatio ns:Migraine Prevention Take 1 capsule (37.5 mg total) by mouth daily 90 capsule 3 4 09/06/20 25 Active Active Problems Problem Noted Date Diagnosed Date Anxiety disorder 09/06/2024 Blood glucose abnormal 09/06/2024 Bronchitis 09/06/2024 Chronic fatigue syndrome 09/06/2024 Chronic obstructive pulmonary disease 09/06/2024 Osteoarthritis of knee 09/06/2024 Pure hypercholesterolemia 09/06/2024 Low back pain 02/02/2024 Low serum vitamin B12 02/02/2024 Stage 3 chronic kidney disease 01/07/2024 ILD (interstitial lung disease) ([facility]/HCC) 2023 Traumatic brain injury 11/02/2023 Dyspnea on exertion 07/27/2023 Migraine 03/14/2023 Osteoporosis 03/14/2023 Mixed hyperlipidemia 12/22/2022 Acute urinary tract infection 09/14/2022 Localized edema 08/24/2019 Bradycardia 05/17/2018 Dizziness 05/17/2018 Pernicious anemia 01/20/2018 Coronary arteriosclerosis 09/15/2017 Palpitations 09/15/2017 Resolved Problems Problem Noted Date Diagnosed Date Resolved Date Premature atrial contractions 12/01/2017 08/30/2018 Essential hypertension 09/15/201705/17 Dyslipidemia 09/15/2017 12/22/2022 Idiopathic pulmonary fibrosis 09/15/2017 11/26/2023 Social History Tobacco Use Types Packs/Day Years Used Date Smoking Tobacco: Never Passive Smoke Exposure: Past Smokeless Tobacco: Never Tobacco Cessation:Counseling Given: Not Answered Alcohol Use Standard Drinks/Week Comments No 0 (1 standard drink = 0.6 oz pur e alcohol) Comments Unknown Sex and Gender Information Value Date Recorded Sex Assigned at Not on file Legal Sex Female 12:42 AM SANITARIAN AIDE Gender Identity Not on file Sexual Orientation Not on file Last Filed Vital Signs Vital Sign Reading Time Taken Comments Blood Pressure 148/52 09/06/2024 9:41 AM SANITARIAN AIDE Pulse 77 09/06/2024 9:41 AM SANITARIAN AIDE Temperature 36.6 ??C (97.8 ??F) 06/29/2024 2:51 PM CD T Respiratory Rate 18 06/29/2024 2:51 PM CDT Oxygen Saturation 98% 09/06/2024 9:41 AM SANITARIAN AIDE Inhaled Oxygen Concentration - - Weight 61.7 kg (136 lb) 09/06/2024 9:41 AM SANITARIAN AIDE Height 170.2 cm (5' 7 ) 09/06/2024 9:41 AM SANITARIAN AIDE Body Mass Index 21.3 09/06/2024 9:41 AM SANITARIAN AIDE Plan of Treatment Not on file Insurance [facility] MDCR HMO REF [facility] MEDICARE Address: [place] [address] MEDICARE SOLUTIONS [facility] MEDICARE Address: [place] [id number] [place] [address] MEDICARE SOLUTIONS [facility] MEDICARE Address: [address] [address] [place] [phone] MEDICARE SOLUTIONS Care Teams Hand Collator Relationship Specialty Start Date End Date Darien More MD [address] [address] PCP - General Internal Medicine 12/07/23
--- OUTSIDE RECORDS SUMMARY | 2024-11-09 16:03 | XMS_ITS | Clinical Summary ---
Author Organization [facility] [address] Address [address] [place] [address] Care Team Providers Care In House Cra Name Role Phone Darien More MD Primary Care Provide r Allergies Active Allergy Reactions Criticality Noted Date [...] mg SL tabletIndication s:Coronary artery disease of black[place] artery of [place] heart with stable angina pectoris (HCC) Place [...] mouth daily 90 capsule 3 4 09/06/20 Active Active Problems Problem Noted Date Diagnosed Date Anxiety disorder 09/06/2024 Blood glucose abnormal 09/06/2024 Bronchitis 09/06/2024 Chronic fatigue syndrome 09/06/2024 Chronic obstructive pulmonary disease 09/06/2024 Osteoarthritis of knee 09/06/2024 Pure hypercholesterolemia 09/06/2024 Low back pain 02/02/2024 Low serum vitamin B12 02/02/2024 Stage 3 chronic kidney disease 01/07/2024 ILD (interstitial lung disease) (CMS/HCC) 2023 Traumatic brain injury 11/02/2023 Dyspnea on exertion 07/27/2023 Migraine 03/14/2023 Osteoporosis 03/14/2023 Mixed hyperlipidemia 12/22/2022 Acute urinary tract infection 09/14/2022 Localized edema 08/24/2019 Bradycardia 05/17/2018 Dizziness 05/17/2018 Pernicious anemia 01/20/2018 Coronary arteriosclerosis 09/15/2017 Palpitations 09/15/2017 Resolved Problems Problem Noted Date Diagnosed Date Resolved Date Premature atrial contractions 12/01/2017 08/30/2018 Essential hypertension 09/15/201705/17 Dyslipidemia 09/15/2017 12/22/2022 Idiopathic pulmonary fibrosis 09/15/2017 11/26/2023 Encounters Date Type Department Care Team Description 10/24/2024 Telephone [facility] [address] [place] [address] [address] [place] [address] Cande Payne NP Prior Auth (Ubrelvy 100mg) 09/06/2024 10:00 AM BROACHING MACHINE SET UP OPERATOR Office Visit [facility] [address] [place] [address] [address] [place] [address] Cande Payne NP Migraine without status migrainosus, not intractable, unspecified migraine type (Primary Dx); Gait disorder; Dizziness and giddiness from Last 3 Months Surgical History Surgery Date Site/Laterality Comments CHOLECYSTECTOMY Medical History Medical History Date Comments Cataracts, bilateral Asthma PAD (peripheral artery disease) ([facility]) Deep vein thrombosis (DVT) d uring current hospitalization ([facility]) ([facility]) Coronary artery disease Hyperlipidemia Hypertension Family History Medical History Relation Name Comments Heart disease Father Heart failure Father Diabetes Mother Heart failure Mother Relation Name Status Comments Father (Age 69) Mother (Age 69) Social History Tobacco Use Types Packs/Day Years Used Date Smoking Tobacco: Never Passive Smoke Exposure: Past Smokeless Tobacco: Never Tobacco Cessation:Counseling Given: Not Answered Alcohol Use Standard Drinks/Week Comments No 0 (1 standard drink = 0.6 oz pur e alcohol) Comments Unknown Sex and Gender Information Value Date Recorded Sex Assigned at Not on file Legal Sex Female 12:42 AM BROACHING MACHINE SET UP OPERATOR Gender Identity Not on file Sexual Orientation Not on file Obstetrics History Last Filed Vital Signs Vital Sign Reading Time Taken Comments Blood Pressure 148/52 09/06/2024 9:41 AM BROACHING MACHINE SET UP OPERATOR Pulse 77 09/06/2024 9:41 AM BROACHING MACHINE SET UP OPERATOR Temperature 36.6 ??C (97.8 ??F) 06/29/2024 2:51 PM CD T Respiratory Rate 18 06/29/2024 2:51 PM CDT Oxygen Saturation 98% 09/06/2024 9:41 AM BROACHING MACHINE SET UP OPERATOR Inhaled Oxygen Concentration - - Weight 61.7 kg (136 lb) 09/06/2024 9:41 AM BROACHING MACHINE SET UP OPERATOR Height 170.2 cm (5' 7 ) 09/06/2024 9:41 AM BROACHING MACHINE SET UP OPERATOR Body Mass Index 21.3 09/06/2024 9:41 AM BROACHING MACHINE SET UP OPERATOR Plan of Treatment Health Maintenance Due Date Last Done Comments Depression Screening 1945 Fall Risk Assessment 1945 Hepatitis C Screening 1945 Hepatitis B Screening 1963 Zoster Vaccine (1 of 2) 1995 Well Visit 65+ 2010 DTaP/Tdap/Td Vaccine (1 - Tdap) 01/24/2016 6 Covid-19 Vaccine (2 - 2023-2 5 season) 2024 12/16/2020 Influenza Vaccine (#1) 2024 9, 07/21/2018, 07/03/2017, Additional history exists Osteoporosis Screening-Bone Density Scan 11/12/2025 11/12/2023 Pneumococcal vaccine 65+ Completed 07/03/2017, 09/10 Insurance [facility] MDCR HMO REF [facility] MEDICARE Address: [facility] [address] [place] [address] MEDICARE SOLUTIONS [facility] MEDICARE Address: [place] [phone] MEDICARE [employer] [facility] MEDICARE Address: [address] [address] MEDICARE [employer] Member Subscriber Plan / Payer ( fective 2022-Present) Name:Zaida Tuttle Relation to Subscriber:Self Name:Zaida Tuttle Payer ID:[id number] (NAIC) Type:[employer] MEDICARE Address: [place] [phone] Care Teams In House Cra Relationship Specialty Start Date End Date Darien More MD [address] [place] [address] PCP - General Internal Medicine 12/07/23
[2024-11-09 17:30] VITALS: BP 158/70; PULSE 64; RESP 16; O2SAT 97
[2024-11-09 19:45] VITALS: BP 149/70; PULSE 65; RESP 18; TEMP 36.6; O2SAT 98
== END 2024-11-09 19:47 | disposition home or self-care (01) ==
PROVIDERS: Emergency Provider Emergency Medicine; PCP Internal Medicine
DX: S09.90XA Unspecified injury of head, initial encounter (principal); S79.912A Unspecified injury of left hip, initial encounter; S59.902A Unspecified injury of left elbow, initial encounter; J44.9 Chronic obstructive pulmonary disease, unspecified; I10 Essential (primary) hypertension; J84.10 Pulmonary fibrosis, unspecified; Z87.820 Personal history of traumatic brain injury; Z90.49 Acquired absence of other specified parts of digestive tract; M47.812 Spondylosis without myelopathy or radiculopathy, cervical region; M47.816 Spondylosis without myelopathy or radiculopathy, lumbar region; M47.814 Spondylosis without myelopathy or radiculopathy, thoracic region; M19.022 Primary osteoarthritis, left elbow; M16.0 Bilateral primary osteoarthritis of hip; J84.9 Interstitial pulmonary disease, unspecified; W07.XXXA Fall from chair, initial encounter
CPT/HCPCS: 70450; 71046; 71100; 72125; 72128; 72131; 73030; 73080; 73502; 73700; 99284

== ENCOUNTER 2025-01-04 09:11 | Emergency (ER) | payer MEDICARE, SELFPAY ==
[2025-01-04] VITALS (34 sets, daily range): BP systolic 144–179; BP diastolic 53–76; PULSE 57–82; RESP 15–24; TEMP 36.4–36.7; O2SAT 95–100
--- OUTSIDE RECORDS SUMMARY | 2025-01-04 09:43 | XMS_ITS | Encounter Summary ---
Author Organization [facility] Healthcare Address [address] [place] [address] Care Team Providers Care Heat Transfer Technician Name Role Phone Darien More MD Primary Care Provide r Yris Barbosa RN Unavailable Payton vailable Encounter Details Date Type Department Care Team (Late st Contact Info) Description 02/21/2024 Orders Only [facility] Health Information Management [address] [place] [address] Scanning, Provider Social History Tobacco Use Types Packs/Day Years Used Date Smoking Tobacco: Never Smokeless Tobacco: Never Alcohol Use Standard Drinks/Week Comments No 0 (1 standard drink = 0.6 oz pur e alcohol) Comments Unknown Sex and Gender Information Value Date Recorded Sex Assigned at Not on file Legal Sex Female 12:[address] SQL DEVELOPER Gender Identity Not on file Sexual Orientation [...] on filedocumented in this encounter Care Teams Heat Transfer Technician Relationship Specialty Start Date End Date Darien More MD [address] [facility] [address] [place] [address] PCP - General Internal Medicine 12/07/23 Yris Barbosa, RN Registered Nurse Pulmonary Disease 12/28/24 documented as of this encounter
--- OUTSIDE RECORDS SUMMARY | 2025-01-04 09:43 | XMS_ITS ---
Author Organization [facility] Address [address] [facility] [address] [facility] [address] [place] [address] Care Team Providers Care Stucco Plasterer Name Role Phone Johnson Jian Unavailable [phone] PROBLEMS Problem Type ICD Code Onset Dates Problem Status W/U Status Risk SNOMED Code Notes Problem Chronic kidney disease, stage 3 unspecified (N18.30) Active confirmed Chronic kidney disease stage 3 (disorder) (447518282) Problem Chronic fatigue, unspecified (R53.82) Active confirmed Chronic fatigue syndrome (disorder) (82682307) Problem Anxiety disorder, unspecified (F41.9) Active confirmed Anxiety disorde r (734759411) Problem Essential (primary) hypertension (I10) Active confirmed Essential hypertension (31556597) Problem Edema, unspecified (R60.9) Active confirmed Edema (28285974) Encounters Encounter Location Date Provider Diagnosis [facility] [address] [place] [address] 02/04/2024 Jian Johnson Chronic kidney disea se, [...] * Marek TUTTLEOB:[birth year] (79 yo F)Acc No.[id number]:02/04/2024 Progress Notes Patient: Miriam TUTTLE Provider: MD MEÑO, Monica.P, F.A.S.N. :1945 Age:78 Y Sex:Female Date:02/04/2024 Address:[address] [place] [address] Subjective: * Chief Complaints: * * Medical History: Objective: Assessment: * Assessment: 1. Chronic kidney disease, stage 3 unspecified - N18.30 2. Chronic fatigue, unspecified - R53.82 3. Anxiety disorder, unspecified - F41.9 4. Essential (primary) hypertension - I10 5. Edema, unspecified - R60.9 Plan: * Treatment: * Billing Information: * Visit Code: 19850 Office Visit, New Pt., Level 5. * Procedure Codes: * Sign off status: Pending * Provider: MD MEÑO, Monica.P, F.A.S.N. Date: 02/04/2024
--- OUTSIDE RECORDS SUMMARY | 2025-01-04 09:44 | XMS_ITS | Clinical Summary ---
Author Organization [facility] Address [address] [place] [address] Phone Care Team Providers Care Typesetter Apprentice Name Role Phone Varun More MD Primary [...] 89 06/23/2024 2:34 PM CDT Temperature 36.7 C (98.1 F) 06/23/2024 2:34 PM CDT Respiratory Rate 16 06/23/2024 2:34 PM CDT [...] to complete this topic Insurance [facility] Care Teams Typesetter Apprentice Relationship Specialty Start Date End Date Varun More MD [address] [place] [address] PCP - General Internal Medicine 06/15/24
--- OUTSIDE RECORDS SUMMARY | 2025-01-04 09:44 | XMS_ITS | Encounter Summary ---
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
--- OUTSIDE RECORDS SUMMARY | 2025-01-04 09:44 | XMS_ITS | Patient Health Record ---
Author Organization [facility] Address [address] [facility] [address] [facility] [address] [place] [address] Care Team Providers Care Third Mate Name Role Phone Alex Jian Unavailable [phone] REASON FOR REFERRAL No Information PROBLEMS Problem Type ICD Code Onset Dates Problem Status W/U Status Risk SNOMED Code Notes Problem Anxiety disorder, unspecified (F41.9) Active confirmed Anxiety disorde r (877147829) Problem Essential (primary) hypertension (I10) Active confirmed Essential hypertension (27137973) Problem Chronic fatigue, unspecified (R53.82) Active confirmed Chronic fatigue syndrome (disorder) (02408570) Problem Edema, unspecified (R60.9) Active confirmed Edema (79058791) Problem Chronic kidney disease, stage 3 unspecified (N18.30) Active confirmed Chronic kidney disease stage 3 (disorder) (158789917) Encounters Encounter Location Date Provider Diagnosis [facility] [address] [place] [address] 02/04/2024 Jian Johnson Chronic kidney disease, stage 3 unspecified N18.30 ; Chronic fatigue, unspecified R53.82 ; Anxiety disorder, unspecified F41.9 ; Essential (primary) hypertension I10 and Edema, unspecified R60.9 [place] Office [address] [facility] [address] [place] [address] 03/22/2024 Jian Johnson Chronic kidney disease, stage [...]
--- OUTSIDE RECORDS SUMMARY | 2025-01-04 09:44 | XMS_ITS | Referral Summary ---
Author Organization [facility] [address] Address [address] [place] [address] Care Team Providers Care Biomed Tech Name Role Phone Darien More MD Primary Care Provide r Yris Barbosa RN Unavailable Payton vailable Encounters Date Type Department Care Team Description 10/24/2024 Telephone [facility] Neurology [address] [place] [address] [place] [phone] Cande Payne REVENUE CYCLE CONSULTANT Prior Auth (Ubrelvy 100mg) from Last 3 Months Allergies Active Allergy [...] mg SL tabletIndication s:Coronary artery disease of [place] artery of [place] heart with stable angina pectoris Place 1 tablet (0.4 mg total) under [...] 24 hours. 10 tablet 11 4 05/16/20 Active Additional Information Patient not taking.Reported on [...] kidney disease 01/07/2024 ILD (interstitial lung disease) 11/25/2023 Traumatic brain injury 11/02/2023 Dyspnea on exertion [...] on file Legal Sex Female 12:42 AM MD PEDIATRIC ALLERGIST Gender Identity Not on file Sexual Orientation Not on file Last Filed Vital Signs Vital Sign Reading Time Taken Comments Blood Pressure 148/52 09/06/2024 9:41 AM MD PEDIATRIC ALLERGIST Pulse 77 09/06/2024 9:41 AM MD PEDIATRIC ALLERGIST Temperature 36.6 C (97.8 F) 06/29/2024 2:51 PM CDT Respiratory Rate 18 06/29/2024 2:51 PM CDT Oxygen Saturation 98% 09/06/2024 9:41 AM MD PEDIATRIC ALLERGIST Inhaled Oxygen Concentration - - Weight 61.7 kg (136 lb) 09/06/2024 9:41 AM MD PEDIATRIC ALLERGIST Height 170.2 cm (5' 7 ) 09/06/2024 9:41 AM MD PEDIATRIC ALLERGIST Body Mass Index 21.3 09/06/2024 9:41 AM MD PEDIATRIC ALLERGIST Plan of Treatment Not on file [facility] MEDICARE ADVANTAGE [facility] MEDICARE ADVANTAGE [facility] MEDICARE ADVANTAGE Care Teams Biomed Tech Relationship Specialty Start Date End Date Darien More MD [address] [place] [id number] PCP - General Internal Medicine 12/07/23 Yris Barbosa, RN Registered Nurse Pulmonary Disease 12/28/24
--- OUTSIDE RECORDS SUMMARY | 2025-01-04 09:44 | XMS_ITS | Data Portability ---
Author Organization [facility], Main Office Address [address] [place] [address] Care Team Providers Care Php Wordpress Developer Name Role Phone LIGIA SILVA Primary Care Provider [phone] LIGIA SILVA Referring Provider Assessment Encounter Date [...] [facility] of the [facility] at [facility] in [place] (TEL , TEL [phone], FAX [phone], FAX [phone]) for further evaluation. She has an appointment set for 11/25/23. She has old records from [facility] Transplant team. Advised to continue not [...] 11.9/36.2 05/18/2024: Dr [email or web address] Not available 11/08/2024 16:39:32 Plan of Treatment Reminders Order Date Submit Date Provider Last Modified By Organization Details Last Modified Time Details Appointments Follow Up 15 2024 01:00P Mahendra fulton MD Not available Not available Not available Lab vitamin D, 25-hydrox y, total, serum 2024 025 [facility], [address], [place], [address], 01/04/2025 03:13:04 lipid panel, serum 2024 025 [facility], [address], [place], [address], 01/04/2025 03:12:58 CMP, serum or plasma 2024 025 [facility], [address], [place], [address], 01/04/2025 03:13:01 CBC w/ auto diff 2024 025 [facility], [address], [place], [address], 01/04/2025 03:13:02 TSH + free T4, serum 2024 025 [facility], [address], [place], [address], 01/04/2025 03:13:00 vitamin B12 + folate, serum or blood 2024 025 [facility], [address], [place], [address], 01/04/2025 03:13:03 vitamin D, 25-hydrox y, total, serum 2023 024 [email or web address] Not available 11/21/2024 08:14:11 lipid panel, serum 2023 024 [email or web address] Not available 11/21/2024 08:14:11 CMP, serum or plasma 2023 024 [email or web address] Not available 11/21/2024 08:14:12 CBC w/ auto diff 2023 024 [email or web address] Not available 11/21/2024 08:14:12 TSH + free T4, serum 2023 024 [email or web address] Not available 11/21/2024 08:14:12 vitamin B12 + folate, serum or blood 2023 024 [email or web address] Not available 11/21/2024 08:14:12 vitamin D, 25-hydrox y, total, serum 2023 024 [email or web address] Not available 07/31/2024 12:23:36 lipid panel, serum 2023 024 [email or web address] Not available 07/31/2024 12:23:36 CMP, serum or plasma 2023 024 [email or web address] Not available 07/31/2024 12:23:37 CBC w/ auto diff 2023 024 [email or web address] Not available 07/31/2024 12:23:37 TSH + free T4, serum 2023 024 Not available 07/31/2024 12:23:37 vitamin B12 + folate, serum or blood 2023 024 Not available 07/31/2024 12:23:37 vitamin D, 25-hydrox y, total, serum 2023 024 Not available 05/09/2024 08:48:54 lipid panel, serum 2023 024 JENNIFER Not available 12/30/2023 18:35:22 CMP, serum or plasma 2023 024 JENNIFER Not available 12/30/2023 18:35:33 CBC w/ auto diff 2023 024 JENNIFER Not available 12/30/2023 19:01:50 TSH + free T4, serum 2023 024 [email or web address] Not available 05/09/2024 08:48:54 vitamin B12 + folate, serum or blood 2023 024 [email or web address] Not available 05/09/2024 08:48:54 Referral pulmonolo gist referral - Please call patient to schedule an appointme nt. Thank you. 2024 025 robyn Wise, [address], [address], [place], [address], 12/12/2024 16:05:51 nephrolog ist referral - Please call patient to schedule an appointme nt. Thank you. 2024 025 robyn Johnson MD (Nephrology, [address], [place], [address], 12/12/2024 16:05:35 gynecolog ist referral - Please call patient to schedule an appointme nt. Thank you. 2024 025 ALEXI Campbell MD, [address], [place], [address], 11/13/2024 19:30:36 gynecolog ist referral 2023 024 estefany Campbell MD, [address], [place], [address], 11/13/2024 08:28:48 nephrolog ist referral 2023 024 [email or web address] 2 Jian Johnson MD (Nephrology, [address], [place], [address], 12/12/2024 08:34:02 nephrolog ist referral 2023 024 estefany Johnson MD (Nephrology, [address], [place], [address], 03/01/2024 08:19:24 gynecolog ist referral 2023 024 estefany Campbell MD, [address], [place], [address], 07/31/2024 12:23:49 pulmonolo gist referral - Patient has ILD and was on lung transplan t waiting list with [facility] at one point 2023 024 JENNIFER Wise, [address], [address], [place], [address], 01/30/2024 14:56:51 gynecolog ist referral 2023 024 [email or web address] Yolette Campbell MD, [address], [place], [address], 05/29/2024 09:33:35 cardiolog ist referral 2023 024 JENNIFER Edison Buckley, [address], [place], [address], 01/30/2024 15:02:44 Procedures colonosco py screening (PROC) 2023 024 [email or web address] Daniel Doan MD, [address], [place], [address], 12/14/2024 10:52:17 colonosco py screening (PROC) 2023 024 [email or web address] Doan MD, [address], [place], [address], 07/31/2024 12:23:05 colonosco py screening (PROC) 2023 024 estefany Doan MD, [address], [place], [address], 05/08/2024 10:04:30 Surgeries None recorded. Imaging DEXA 2023 024 [facility] ([facility]), [address] [place], [address], 11/12/2023 15:12:50 MAMMO, screening , digital, bilateral 2023 024 [facility] ([facility]), [address] [place], [address], 11/12/2023 15:23:08 Medication Orders levofloxa von 750 mg tablet 2024 025 [id number], [address], [place], [place], [id number], 11/08/2024 16:41:29 Patient TargetsNo targets recorded. Patient Instructions Encounter Date Encounter Id Patient Instructions Last Modified By Organization Details Last Modified Time 05/17/2024 [id number] dementia rating scale-2* [email or web address] 2 Not available 05/17/2024 14:42:30 alcohol misuse* [email or web address] 2 Not available 05/17/2024 14:42:30 depression screening* mbbehzadrainwala 2 Not available 05/17/2024 14:42:30 Timed Up and Go test (TUG)* [email or web address] 2 Not available 05/17/2024 14:42:30 multi-dimensiona l health assessment questionnaire* rolandowala 2 Not available 05/17/2024 14:42:30 Personalized [facility] lt Plan and Screening Recommendations Advance Directives - Do you have one? Yes Advance Directives - Do we have your advance directive on file in your health record? Yes Primary Prevention/Interven tion (prevents or decreases the chance of common diseases from occurring) Smoking Risk: Non Smoker Alcohol Misuse Screening: Negative Weight: Appropriate Physical activity: Need more exercise/physical activity minimum of 10-20 minutes of activity that causes mild breathlessness/day Nutrition: Good Average Refer to attached handout Heart-Healthy Diet: After Your Visit Fall Risk (screened today): High Refer to attached handout Preventing Falls: After your Visit Vaccines Pneumococcal: Ordered Recommended today Recommended today, but you have declined No further needed Influenza: Your next one in the fall of this year Chronic Disease Risks Stroke: Low Risk Intermediate Risk Heart Attack: Low risk Intermediate Risk Clogging of the Arteries: Low risk Intermediate Risk Diabetes: Low Risk Secondary Prevention/Interven tion (detects treatable diseases before they may cause symptoms, disability, or ) Breast Cancer Screening with mammogram: Cervical/Uterine/Ov dona Cancer Screening: Your next PAP/pelvic in: Referral to central supply manager Recomm ended today Recommended today, but you have declined Osteoporosis Screening: Date Screening Last Performed: 11/12/23 Colon Cancer Screening: Colonoscopy Date Screening Last Performed: declined Eye Disease Screening: Ordered Recommended today Dementia Risk: High I have no recommendations Depression Screening: Negative [email or web address] Not available 05/17/2024 14:51:12 Reason for Referral Records Officer Referral for Gy necologic examination Referring Physician: Varun More Internal Medicine, Encounter Date: 11/03/2023 Correctional Cook Referral for Co ronary arteriosclerosis Referring Physician: Varun More Internal Medicine, Encounter Date: 11/03/2023 Tipple Engineer Referral for I nterstitial lung disease Patient has ILD and was on lung transplant waiting list with [facility] at one point Referring Physician: Quinton Alvarez, Pulmonary Disease, Encounter Date: 11/09/2023 Records Officer Referral for Gy necologic examination Referring Physician: Varun More Internal Medicine, Encounter Date: 02/02/2024 Dental Office Receptionist Referral for Ch ronic kidney disease Referring Physician: Varun More Internal Medicine, Encounter Date: 02/02/2024 Records Officer Referral for Gy necologic examination Referring Physician: Varun More Internal Medicine, Encounter Date: 05/17/2024 Dental Office Receptionist 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 Thank you. 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 Thank you. Referring Physician: Irma Perez Medicine, Encounter Date: 11/08/2024 Tipple Engineer Referral for I diopathic pulmonary fibrosis Please call patient to schedule an appointment. Thank you. Referring Physician: Varun More, Internal Medicine, Encounter Date: 11/08/2024 Results Created Date Observation Date Name Description Value Unit Range Abnormal Flag Note LastModifiedBy Organization Detail LastModifiedTime 12/30/19 24 12/30/2023 LIPID PANEL cholesterol 136 mg/dL 140-19 9 low NIH BERNADINE NSUS RECOM MENDA TION FOR GLENN STERO L: ADULT CHILD LOW RISK: <200 <170 BORDE RLINE : <200- 239 ----- HIGH RISK: >240 >200 Not Available [facility] (Lab) [address] [place], [address], 12/30/2023 18:35:22 12/30/19 24 12/30/2023 LIPID PANEL triglyceride s 104 mg/dL 0-150 NIH BERNADINE NSUS REPOR T RECOM MENDA TION FOR TRIGL YCERI ALANA: ADULT CHILD LOW RISK: <150 ----- BODER LINE: 150-1 99 ----- HIGH RISK: >200 ----- Not Available [facility] (Lab) [address] [place], [address], 12/30/2023 18:35:22 12/30/19 24 12/30/2023 LIPID PANEL HDL cholesterol 47 mg/dL 40- Not Available [facility] (Lab) [address] [place], [address], 12/30/2023 18:35:22 12/30/19 24 12/30/2023 LIPID PANEL [...] WILL NOT BE REPOR MARCIE. Not Available [facility] (Lab) [address] [place], [address], 12/30/2023 18:35:22 12/30/19 24 12/30/2023 COMPR EHENS LUCIUS METAB OLIC PANEL sodium 137 mmol/ L 137-14 5 Not Available [facility] (Lab) [address] [place], [address], 12/30/2023 18:35:33 12/30/19 24 12/30/2023 COMPR EHENS LUCIUS METAB OLIC PANEL potassium 4.5 mmol/ L 3.5-5. 1 Not Available [facility] (Lab) [address] [place], [address], 12/30/2023 18:35:33 12/30/19 24 12/30/2023 COMPR EHENS LUCIUS METAB OLIC PANEL chloride 106 mmol/ L 98-107 Not Available [facility] (Lab) [address] [place], [address], 12/30/2023 18:35:33 12/30/19 24 12/30/2023 COMPR EHENS LUCIUS METAB OLIC PANEL carbon dioxide 28 mmol/ L 22-30 Not Available [facility] (Lab) [address] [place], [address], 12/30/2023 18:35:33 12/30/19 24 12/30/2023 COMPR EHENS LUCIUS METAB OLIC PANEL anion gap 7.5 mmol/ L 14-22 low Not Available [facility] (Lab) [address] [place], [address], 12/30/2023 18:35:33 12/30/19 24 12/30/2023 COMPR EHENS LUCIUS METAB OLIC PANEL glucose 95 mg/dL 70-99 Not Available [facility] (Lab) [address] [place], [address], 12/30/2023 18:35:33 12/30/19 24 12/30/2023 COMPR EHENS LUCIUS METAB OLIC PANEL BUN 26 mg/dL 8-19 high Not Available [facility] (Lab) [address] [place], [address], 12/30/2023 18:35:33 12/30/19 24 12/30/2023 COMPR EHENS LUCIUS METAB OLIC PANEL creatinine 0.93 mg/dL 0.66-1 .25 Not Available [facility] (Lab) [address] [place], [address], 12/30/2023 18:35:33 12/30/19 24 12/30/2023 COMPR EHENS LUCIUS METAB OLIC PANEL GFR 58 Refer ence Range : Bluejacket ge GFR Healt hy Adult : >60 [...] or ethni c subgr oups, such as Hispa nics. Outsi de the valid ated pastor [...] calcu lator is avail able on the NKF websi te: https ://susan newberry.tony richardson/pr donal sarabiaal s/kdo qi/gf r_cal culat or Not Available [facility] (Lab) [address] [place], [address], 12/30/2023 18:35:33 12/30/19 24 12/30/2023 COMPR EHENS LUCIUS METAB OLIC PANEL alkaline phosphatase 73 U/L 38-126 Not Available [facility] (Lab) [address] [place], [address], 12/30/2023 18:35:33 12/30/19 24 12/30/2023 COMPR EHENS LUCIUS METAB OLIC PANEL alanine aminotransfe rase 19 U/L 0-35 Not Available [facility] (Lab) [address] [place], [address], 12/30/2023 18:35:33 12/30/19 24 12/30/2023 COMPR EHENS LUCIUS METAB OLIC PANEL aspartate aminotransfe rase 33 U/L 15-37 Not Available [facility] (Lab) [address] [place], [address], 12/30/2023 18:35:33 12/30/19 24 12/30/2023 COMPR EHENS LUCIUS METAB OLIC PANEL bilirubin, total 0.60 mg/dL 0.20-1 .30 Not Available [facility] (Lab) [address] [place], [address], 12/30/2023 18:35:33 12/30/19 24 12/30/2023 COMPR EHENS LUCIUS METAB OLIC PANEL calcium 9.1 mg/dL 8.4-10 .2 Not Available [facility] (Lab) [address] [place], [address], 12/30/2023 18:35:33 12/30/19 24 12/30/2023 COMPR EHENS LUCIUS METAB OLIC PANEL total protein 6.4 g/dL 6.3-8. 2 Not Available [facility] (Lab) [address] [place], [address], 12/30/2023 18:35:33 12/30/19 24 12/30/2023 COMPR EHENS LUCIUS METAB OLIC PANEL albumin 3.9 g/dL 3.0-4. 4 Not Available [facility] (Lab) [address] [place], [address], 12/30/2023 18:35:33 12/30/19 24 12/30/2023 COMPR EHENS LUCIUS METAB OLIC PANEL globulin 2.5 g/dL 2.6-4. 2 low Not Available [facility] (Lab) [address] [place], [address], 12/30/2023 18:35:33 12/30/19 24 12/30/2023 COMPR EHENS LUCIUS METAB OLIC PANEL A/G ratio 1.6 ratio 1.0-2. 0 Not Available [facility] (Lab) [address] [place], [address], 12/30/2023 18:35:33 12/30/19 24 12/30/2023 T4 FREE free T4 0.95 NG/dL 0.78-2 .19 Not Available [facility] (Lab) [address] [place], [address], 12/30/2023 18:51:20 12/30/19 24 12/30/2023 CBC/C OMPLE TE BLD COUNT W/DIF F white blood cells 7.4 x10'3 /uL 4.2-10 .8 Not Available [facility] (Lab) [address] [place], [address], 12/30/2023 19:01:50 12/30/19 24 12/30/2023 CBC/C OMPLE TE BLD COUNT W/DIF F red blood cells 3.79 x10'6 /uL 3.80-5 .20 low Not Available [facility] (Lab) [address] [place], [address], 12/30/2023 19:01:50 12/30/19 24 12/30/2023 CBC/C OMPLE TE BLD COUNT W/DIF F hemoglobin 12.4 g/dL 12.0-1 5.6 Not Available [facility] (Lab) [address] [place], [address], 12/30/2023 19:01:50 12/30/19 24 12/30/2023 CBC/C OMPLE TE BLD COUNT W/DIF F hematocrit 36.6 % 35.7-4 5.7 Not Available [facility] (Lab) [address] [place], [address], 12/30/2023 19:01:50 12/30/19 24 12/30/2023 CBC/C OMPLE TE BLD COUNT W/DIF F mean red cell volume 96.6 fL 82.0-9 9.0 Not Available [facility] (Lab) [address] [place], [address], 12/30/2023 19:01:50 12/30/19 24 12/30/2023 CBC/C OMPLE TE BLD COUNT W/DIF F mean red cell hemoglobin 32.7 pg 27.0-3 3.0 Not Available [facility] (Lab) [address] [place], [address], 12/30/2023 19:01:50 12/30/19 24 12/30/2023 CBC/C OMPLE TE BLD COUNT W/DIF F mean RBC HGB concentratio n 33.9 g/dL 31.0-3 6.0 Not Available [facility] (Lab) [address] [place], [address], 12/30/2023 19:01:50 12/30/19 24 12/30/2023 CBC/C OMPLE TE BLD COUNT W/DIF F red cell distribution width 12.8 % 11.8-1 5.5 Not Available [facility] (Lab) [address] [place], [address], 12/30/2023 19:01:50 12/30/19 24 12/30/2023 CBC/C OMPLE TE BLD COUNT W/DIF F platelets 149 x10'3 /uL 150-40 0 low Not Available [facility] (Lab) [address] [place], [address], 12/30/2023 19:01:50 12/30/19 24 12/30/2023 CBC/C OMPLE TE BLD COUNT W/DIF F mean platelet volume 11.7 fL 9.0-12 .4 Not Available [facility] (Lab) [address] [place], [address], 12/30/2023 19:01:50 12/30/19 24 12/30/2023 CBC/C OMPLE TE BLD COUNT W/DIF F neutrophils 65.4 % 39.0-7 2.0 Not Available [facility] (Lab) [address] [place], [address], 12/30/2023 19:01:50 12/30/19 24 12/30/2023 CBC/C OMPLE TE BLD COUNT W/DIF F lymphocytes 17.9 % 16.0-4 7.0 Not Available [facility] (Lab) [address] [place], [address], 12/30/2023 19:01:50 12/30/19 24 12/30/2023 CBC/C OMPLE TE BLD COUNT W/DIF F monocytes 10.3 % 5.0-12 .0 Not Available [facility] (Lab) [address] [place], [address], 12/30/2023 19:01:50 12/30/19 24 12/30/2023 CBC/C OMPLE TE BLD COUNT W/DIF F eosinophils 5.4 % 1.0-7. 0 Not Available [facility] (Lab) [address] [place], [address], 12/30/2023 19:01:50 12/30/19 24 12/30/2023 CBC/C OMPLE TE BLD COUNT W/DIF F basophils 0.7 % 0.0-2. 0 Not Available [facility] (Lab) [address] [place], [address], 12/30/2023 19:01:50 12/30/19 24 12/30/2023 CBC/C OMPLE TE BLD COUNT W/DIF F immature granulocytes 0.3 % 0.00-0 .50 Not Available [facility] (Lab) [address] [place], [address], 12/30/2023 19:01:50 12/30/19 24 12/30/2023 CBC/C OMPLE TE BLD COUNT W/DIF F neutrophils, absolute count 4.87 x10'3 /uL 1.5-8. 0 Not Available [facility] (Lab) [address] [place], [address], 12/30/2023 19:01:50 12/30/19 24 12/30/2023 CBC/C OMPLE TE BLD COUNT W/DIF F lymphocytes, absolute count 1.33 x10'3 /uL 1.07-3 .43 Not Available [facility] (Lab) [address] [place], [address], 12/30/2023 19:01:50 12/30/19 24 12/30/2023 CBC/C OMPLE TE BLD COUNT W/DIF F monocytes, absolute count 0.77 x10'3 /uL 0.29-0 .99 Not Available [facility] (Lab) [address] [place], [address], 12/30/2023 19:01:50 12/30/19 24 12/30/2023 CBC/C OMPLE TE BLD COUNT W/DIF F eosinophils, absolute count 0.40 x10'3 /uL 0.02-0 .53 Not Available [facility] (Lab) [address] [place], [address], 12/30/2023 19:01:50 12/30/19 24 12/30/2023 CBC/C OMPLE TE BLD COUNT W/DIF F basophils, absolute count 0.05 x10'3 /uL 0.01-0 .08 Not Available [facility] (Lab) [address] [place], [address], 12/30/2023 19:01:50 12/30/19 24 12/30/2023 CBC/C OMPLE TE BLD COUNT W/DIF F immature granulocytes ,absolute 0.02 x10'3 /uL 0.00-0 .05 Not Available [facility] (Lab) [address] [place], [address], 12/30/2023 19:01:50 12/30/19 24 12/30/2023 CBC/C OMPLE TE BLD COUNT W/DIF F nucleated red blood cells 0.0 % -0 Not Available [facility] (Lab) [address] [place], [address], 12/30/2023 19:01:50 12/30/19 24 12/30/2023 CBC/C OMPLE TE BLD COUNT W/DIF F NRBC# 0.00 x10'3 /uL Not Available [facility] (Lab) [address] [place], [address], 12/30/2023 19:01:50 12/30/19 24 12/30/2023 VITAM IN D 25-HY DROXY vd25oh 52.6 NG/mL 30-100 Vitam in D Statu s: Defic ient: <20 ng/mL Insuf ficie nt: 20-29 ng/mL Suffi cient : 30-10 0 ng/mL Not Available [facility] (Lab) [address] [place], [address], 12/30/2023 19:08:49 12/30/19 24 12/30/2023 TSH thyroid-stim ulating hormone 2.440 uIU/m L 0.465- 4.680 Not Available [facility] (Lab) [address] [place], [address], 12/30/2023 19:09:11 12/30/19 24 12/30/2023 VITAM IN B12 (SHIRA LUIS ALBERTO ) vb12 553 pg/mL 239-93 1 Not Available [facility] (Lab) [address] [place], [address], 12/30/2023 20:04:29 12/30/19 24 12/30/2023 FOLAT E, SERUM /PLAS MA folate 16.4 NG/mL 2.76-2 0.0 Not Available [facility] (Lab) [address] [place], [address], 12/30/2023 21:04:30 10/06/20 23 10/06/2023 XR, chest No observ ation record ed. [address] [address], [place], [address], 10/06/2023 14:31:28 10/06/20 23 10/06/2023 XR, hip + pelvi s, unila teral No observ ation record ed. [address] [address], [place], [address], 10/06/2023 14:31:56 10/06/20 23 10/06/2023 CT, head, w/o contr ast No observ ation record ed. [address] [address], [place], [address], 10/06/2023 14:32:56 10/06/20 23 10/06/2023 CT, cervi dilan spine , w/o contr ast No observ ation record ed. [address] [address], [place], [address], 10/06/2023 14:33:19 10/06/20 23 10/06/2023 CT, lumba r spine , w/o contr ast No observ ation record ed. [address], [place], [address], 10/06/2023 14:33:46 10/06/20 23 10/06/2023 CT, abdom en, w/o contr ast No observ ation record ed. [address], [place], [address], 10/06/2023 14:34:08 11/10/19 24 08/05/2023 US, echoc ardio gram, trans thora cic, compl ete, w/ color flow No observ ation record ed. [facility] ([facility]) [address] [place], [address], 11/10/2023 18:23:53 11/12/19 24 11/12/2023 DEXA, axial skele ton [facility] [address] [place] [address] Patien t Name: MIRIAM SMITH Access ion #: [id number] Sex: F : 1944 7 Dictat ed By: Roxane Ding Attend ing Physic donavon: [employer] [facility] Physic donavon: [employer] Exam Date: 2023 [...] osteop enia -2.5: osteop orosis Page [address] [place] [address] Patiernie t Name: TOM MIRIAM ZELAYA Access ion #: [id number] Sex: F : 1944 7 Dictat ed By: Roxane Ding Attend [facility] Physic donavon: [facility] Physic donavon: [employer] Exam Date: 2023 [...] at 2023 14:04: 17 PM Page 2 [email or web address] [facility] ([facility]) [address] [place], [place], [facility], 11/25/2023 15:56:12 11/12/19 24 11/12/2023 DEXA No observ ation record ed. [facility] [address], [place], [address], 11/25/2023 15:56:12 11/12/19 24 11/12/2023 scree sara breas t niurka, bilat [facility] [address] [facility] [address], [place] [address] [phone] Patien t Name: MIRIAM SMITH Access ion #: [id number] Sex: F : 1944 7 Dictat ed By: Roxane Ding Attend ing Physic donavon: [employer] Orderi ng Physic donavon: [employer] Exam Date: 2023 13:07 PM Exam Name: MG SCRN BREAST NIURKA BILAT Admitt ing Diagno sis(es [...] at 2023 14:20: 00 PM Page [address] (Imaging) [address] [place], [address], 11/25/2023 15:56:13 11/12/19 24 11/12/2023 MAMMO , scree sara, digit al, bilat eral No observ ation record ed. [address] [place], [address], 11/25/2023 15:56:13 11/12/19 24 11/12/2023 XR, lumba r spine No observ ation record ed. [address], [address], 06/19/2024 17:51:23 12/27/19 24 12/27/2023 XR, lumba r spine No observ ation record ed. [address], [address], 06/20/2024 16:16:14 02/21/20 24 02/21/2024 XR, chest No observ ation record ed. [address] [address], [place], [address], 06/21/2024 10:32:05 02/21/20 24 02/21/2024 CT, chest + abdom en + pelvi s, w/ contr ast No observ ation record ed. [address], [address], 06/21/2024 10:33:58 11/09/19 25 11/09/2024 CT, brain , w/o contr ast No observ ation record ed. [facility] [address], [address], 11/13/2024 19:07:13 11/09/19 25 11/09/2024 CT, cervi dilan spine , w/o contr ast No observ ation record ed. [email or web address] [facility] [address], [place], [address], 11/13/2024 19:11:33 11/09/19 25 11/09/2024 CT, thora cic spine , w/o contr ast No observ ation record ed. [address], [place], [address], 11/13/2024 19:12:06 11/09/19 25 11/09/2024 XR, elbow , 2 view No observ ation record ed. [address], [place], [address], 11/13/2024 19:12:34 11/09/19 25 11/09/2024 XR, shoul kareem, 2 or more view No observ ation record ed. [address] [address], [place], [address], 11/13/2024 19:14:10 11/09/19 25 11/09/2024 imagi ng/di agnos tic resul t No observ ation record ed. [address] [address], [place], [place], [id number], 11/09/2024 14:32:06 11/09/19 25 11/09/2024 imagi ng/di agnos tic resul t No observ ation record ed. [address] [address], [place], [address], 11/09/2024 14:33:44 11/09/19 25 11/09/2024 imagi ng/di agnos tic resul t No observ ation record ed. [address] [address], [place], [address], 11/10/2024 05:21:10 Result Notes None recorded. Problems Name Problem SNOMED Code Status Onset Date Resolution Date Notes Provider Name and Address Organization Details Recorded Time Benign essential hypertensi on 5546764 Active Not Available [facility] 12/07/202 3 19:41:15 Osteoarthr itis of knee 373011467 Active Not Available [facility] 3 19:41:15 Pure hyperchole sterolemia 993881045 Active Not Available [facility] 3 19:41:15 Bronchitis 51054715 Completed Not Available [facility] 3 12:52:19 Pernicious anemia 45257667 Active 2017 Not Available [facility] 3 19:41:15 Osteoporos is 00724294 Active 2022 Not Available [facility] 3 19:41:15 Migraine 69982429 Active 2022 Not Available [facility] 3 19:41:15 Coronary atheroscle rosis 751939724 Active 2022 Not Available [facility] 3 19:41:15 Interstiti al lung disease 770040216 Active 2022 Not Available [facility] 3 19:41:15 Idiopathic pulmonary fibrosis 760543267 Active 2023 Varun south MD [address], [place], [address] , [place] [facility] [employer] [facility] 4 16:38:11 Essential hypertensi on 75359339 Active 2023 Varun south MD [address], [place], [address] , [place] [facility] 4 16:38:16 Traumatic brain injury 943636963 Active 2023 Varun south MD [address], [place], [address] , [place] [facility] [place] [facility] 4 17:05:58 Hyperlipid emia 16525800 Active 2023 Varun south MD [address], [place], [address] , [employer] [facility] [employer] [facility] 4 17:07:52 Chronic kidney disease 522967506 Active 2023 Yris Forbes MA null, [facility] 4 14:12:33 Coronary arterioscl erosis 67333284 Active 2023 Varun south MD [address], [place], [address] , [facility] 4 16:17:02 Serum vitamin B12 below reference range 229554265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
--- OUTSIDE RECORDS SUMMARY | 2025-01-04 09:44 | XMS_ITS ---
Author Organization [facility] Address [address] [place] [address] Care Team Providers Care [place] House Worker Name Role Phone AlexLeJian Unavailable [phone] Encounters Encounter Location Date Provider Diagnosis [place] [facility] [address] [facility] [address] [place] [address] 03/22/2024 Jian Johnson Chronic kidney disease, stage [...] * Marek YADAVOB:[birth year] (79 yo F)Acc No.[id number]:03/22/2024 Progress Notes Patient: Miriam YADAV Provider: MD MEÑO, F.A.C.P, F.A.S.N. :1945 Age:78 Y Sex:Female Date:03/22/2024 Address:[address] [place], [place] [id number] Subjective: * Chief Complaints: * * Medical History: Objective: Assessment: * Assessment: 1. Chronic kidney disease, stage 3 unspecified - N18.30 (Primary) 2. Chronic fatigue, unspecified - R53.82 3. Anxiety disorder, unspecified - F41.9 4. Essential (primary) hypertension - I10 5. Edema, unspecified - R60.9 Plan: * Treatment: * Billing Information: * Visit Code: 75803 Office Visit, Est Pt., Level 4. * Procedure Codes: * Sign off status: Pending * Provider: MD MÑEO, F.A.C.P, F.A.S.N. Date: 03/22/2024
--- OUTSIDE RECORDS SUMMARY | 2025-01-04 09:44 | XMS_ITS | Clinical Summary ---
Author Organization [facility] [address] Address [address] [place] [address] Care Team Providers Care Applications Scientist Name Role Phone Darien More MD Primary Care Provide r Yris Barbosa RN Unavailable Payton vailable Allergies Active Allergy Reactions Criticality Noted Date [...] mg SL tabletIndication s:Coronary artery disease of [place] artery of [place] heart with stable angina pectoris Place 1 [...] Type Department Care Team Description 10/24/2024 Telephone [facility] Neurology [address] [place] [address] Cande Payne NP Prior Auth (Ubrelvy 100mg) from Last 3 Months Surgical History Surgery Date Site/Laterality Comments CHOLECYSTECTOMY Medical History Medical History Date Comments Cataracts, bilateral Asthma PAD (peripheral artery disease) Deep vein thrombosis (DVT) during current hospit alization (HCC) Coronary artery disease Hyperlipidemia Hypertension Family History [...] on file Legal Sex Female 12: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 Gender Identity Not on file Sexual Orientation Not on file Obstetrics History Last Filed Vital Signs Vital Sign Reading Time Taken Comments Blood Pressure 148/52 09/06/2024 9:41 AM TECHNICAL SUPPORT PROFESSIONAL Pulse 77 09/06/2024 9:41 AM TECHNICAL SUPPORT PROFESSIONAL Temperature 36.6 C (97.8 F) 06/29/2024 2:51 PM CDT Respiratory Rate 18 06/29/2024 2:51 PM CDT Oxygen Saturation 98% 09/06/2024 9:41 AM TECHNICAL SUPPORT PROFESSIONAL Inhaled Oxygen Concentration - - Weight 61.7 kg (136 lb) 09/06/2024 9:41 AM TECHNICAL SUPPORT PROFESSIONAL Height 170.2 cm (5' 7 ) 09/06/2024 9:41 AM TECHNICAL SUPPORT PROFESSIONAL Body Mass Index 21.3 09/06/2024 9:41 AM TECHNICAL SUPPORT PROFESSIONAL Plan of Treatment Health Maintenance Due Date [...] 65+ Completed 07/03/2017, 09/10 Insurance [facility] HMO REF [facility] Address: [address] [address] [place] [address] [facility] MEDICARE ADVANTAGE [facility] Address: [address] [address] [place] [address] [facility] MEDICARE ADVANTAGE [facility] Address: [address] [address] [facility] MEDICARE ADVANTAGE [facility] Address: [address] [place] [phone] Care Teams Applications Scientist Relationship Specialty Start Date End Date Darien More MD [address] [address] PCP - General Internal Medicine 12/07/23 Yris Barbosa, RN Registered Nurse Pulmonary Disease 12/28/24
[2025-01-04 10:08] LABS: Basophils Absolute Auto 0.1 K/mm3 (0.0-0.1); Basophils Percent Auto 0.8 % (0.2-1.2); Eosinophils Absolute Auto 0.4 K/mm3 (0-0.3); Eosinophils Percent Auto 5.9 % (0-4.4); Immature Granulocyte Absolute 0.02 K/mm3 (0.00-0.031); Immature Granulocyte Percent A 0.3 % (0-0.5); Lymphocytes Absolute Auto 1.59 K/mm3 (0.9-3.2); Lymphocytes Percent Auto 25.4 % (18.3-44.2); Mean Corpuscular HGB Conc 27.2 g/dl (32-36); Mean Corpuscular Hemoglobin 18.3 pg (26-34); Mean Corpuscular Volume 67.3 fl (80-100); Monocytes Absolute Auto 0.7 K/mm3 (0.1-0.6); Monocytes Percent Auto 11.2 % (2.6-8.5); Neutrophils Absolute Auto 3.5 K/mm3 (1.3-6.7); Neutrophils Percent Auto 56.4 % (45.5-73.1); Platelet Count Result 175 k/mm3 (150-375); Red Cell Distribution Width 20.2 % (11.5-14.5); White Blood Count 6.3 K/mm3 (4.5-10.0)
[2025-01-04 10:16] LABS: Hematocrit 20.2 % (37.0-47.0); Hemoglobin 5.5 g/dL (12.0-15.0)
--- OUTSIDE RECORDS SUMMARY | 2025-01-04 10:18 | XMS_ITS | Clinical Summary ---
Author Organization [facility] [address] Address [address] [place] [address] Care Team Providers Care International Coordinator Name Role Phone Darien More MD Primary [...] mg SL tabletIndication s:Coronary artery disease of [place] artery of [place] heart with stable angina pectoris Place 1 [...] Type Department Care Team Description 10/24/[address] 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 DESK PERSON Gender Identity Not on file Sexual Orientation Not on file Obstetrics History Last Filed Vital Signs Vital Sign Reading Time Taken Comments Blood Pressure 148/52 09/06/2024 9:41 AM FRONT DESK PERSON Pulse 77 09/06/2024 9:41 AM FRONT DESK PERSON Temperature 36.6 C (97.8 F) 06/29/2024 2:51 PM CDT Respiratory Rate 18 06/29/2024 2:51 PM CDT Oxygen Saturation 98% 09/06/2024 9:41 AM FRONT DESK PERSON Inhaled Oxygen Concentration - - Weight 61.7 kg (136 lb) 09/06/2024 9:41 AM FRONT DESK PERSON Height 170.2 cm (5' 7 ) 09/06/2024 9:41 AM FRONT DESK PERSON Body Mass Index 21.3 09/06/2024 9:41 AM FRONT DESK PERSON Plan of Treatment Health Maintenance Due Date [...] Pneumococcal vaccine 65+ Completed 07/03/2017, 09/10 Insurance [facility] MDCR HMO REF [facility] MEDICARE ADVANTAGE [facility] MEDICARE ADVANTAGE [facility] MEDICARE ADVANTAGE Care Teams International Coordinator Relationship Specialty Start Date End Date Darien More MD [address] [address] PCP - General Internal Medicine 12/07/23 Yris Barbosa, RN Registered Nurse Pulmonary Disease 12/28/24
--- OUTSIDE RECORDS SUMMARY | 2025-01-04 10:18 | XMS_ITS | Encounter Summary ---
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
--- OUTSIDE RECORDS SUMMARY | 2025-01-04 10:18 | XMS_ITS | Encounter Summary ---
Author Organization [facility] Healthcare Address [address] [place] [address] Care Team Providers Care Product Responsibility Liaison Name Role Phone Darien More MD Primary Care Provide r Yris Barbosa RN Unavailable Payton vailable Encounter Details Date Type Department Care Team (Late st Contact Info) Description 02/21/2024 Orders Only [facility] Health Information Management [address] [place] [address] Scanning, Provider Social History Tobacco Use Types Packs/Day Years Used Date Smoking Tobacco: Never Smokeless Tobacco: Never Alcohol Use Standard Drinks/Week Comments No 0 (1 standard drink = 0.6 oz pur e alcohol) Comments Unknown Sex and Gender Information Value Date Recorded Sex Assigned at Not on file 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
--- OUTSIDE RECORDS SUMMARY | 2025-01-04 10:18 | XMS_ITS | Referral Summary ---
Author Organization [facility] [address] Address [address] [place] [address] Care Team Providers Care Public Policy Associate Name Role Phone Darien More MD Primary Care Provide r Yris Barbosa RN Unavailable Payton vailable Encounters Date Type Department Care Team Description 10/24/2024 Telephone [facility] Neurology [address] [place] [address] [place] [phone] Cande Payne CAFETERIA COUNTER ATTENDANT Prior Auth (Ubrelvy 100mg) from Last 3 [...] mg SL tabletIndication s:Coronary artery disease of [place] artery of [place] heart with stable angina pectoris Place 1 [...] on file Legal Sex Female 12:42 AM CMA OR LPN Gender Identity Not on file Sexual Orientation Not on file Last Filed Vital Signs Vital Sign Reading Time Taken Comments Blood Pressure 148/52 09/06/2024 9:41 AM CMA OR LPN Pulse 77 09/06/2024 9:41 AM CMA OR LPN Temperature 36.6 C (97.8 F) 06/29/2024 2:51 PM CDT Respiratory Rate 18 06/29/2024 2:51 PM CDT Oxygen Saturation 98% 09/06/2024 9:41 AM CMA OR LPN Inhaled Oxygen Concentration - - Weight 61.7 kg (136 lb) 09/06/2024 9:41 AM CMA OR LPN Height 170.2 cm (5' 7 ) 09/06/2024 9:41 AM CMA OR LPN Body Mass Index 21.3 09/06/2024 9:41 AM CMA OR LPN Plan of Treatment Not on file Insurance [facility] Address: [address] [address] [place] [address] [facility] MEDIC[facility]ANTAGE [facility] Address: [address] [address] [place] [address] [facility] MEDIC[facility] Address: [address] [address] [place] [address] [facility] MEDICARE ADVANTAGE Care Teams Public Policy Associate Relationship Specialty Start Date End Date Darien More MD [address] [place] [id number] PCP - General Internal Medicine 12/07/23 Yris Barbosa, RN Registered Nurse Pulmonary Disease 12/28/24
--- OUTSIDE RECORDS SUMMARY | 2025-01-04 10:18 | XMS_ITS | Clinical Summary ---
Author Organization [facility] Address [address] [place] [address] Phone Care Team Providers Care Food Vendor Name Role Phone Varun More MD Primary [...] to complete this topic [facility] Care Teams Food Vendor Relationship Specialty Start Date End Date Varun More MD [address] [place] [address] PCP - General Internal Medicine 06/15/24
[2025-01-04 10:19] LABS: Alanine Aminotransferase 11 U/L (6-35); Albumin Level 3.5 g/dL (3.5-5.1); Alkaline Phosphatase 53 U/L (38-126); Anion Gap 9 mmol/L (4-12); Aspartate Amino Transferase 21 U/L (14-36); Bilirubin,Total 0.4 mg/dL (0.2-1.3); Blood Urea Nitrogen 24 mg/dL (7-17); Calcium 8.4 mg/dL (8.4-10.2); Carbon Dioxide 23 mmol/L (22-30); Chloride 106 mmol/L (98-107); Estimated CRCL calculation 43 ml/min; Estimated Glomerular Filt Rate > 60; Glucose 96 mg/dL (65-110); Potassium 4.7 mmol/L (3.4-5.0); Sodium 138 mmol/L (137-145)
[2025-01-04 10:30] LABS: Anisocytosis 1+; Hypochromasia 2+; Microcytosis 1+ (NORMAL); Platelet Estimate Adequate (Adequate); Schistocytes None Seen
--- NOTE | 2025-01-04 10:31 | ECG_ITS ---
Test Date: 2025-01-04 10:54:23 Measurements Intervals [place] Rate: 68 P: 0 AL: 0 QRS: -28 QRSD: 113 T: 16 QT: 391 QTc: 418 Interpretive Statements SINUS RHYTHM LEFT VENTRICULAR HYPERTROPHY POOR R-WAVE PROGRESSION No previous ECG available for comparison Electronically Signed On 01-04-2025 11:49:24 CDT by Adolfo Reilly M.D.
[2025-01-04] MEDS: SODIUM CHLORIDE 0.9% IV 250 ML 30 ML IV CONT (11:50)
[2025-01-04] MEDS: SODIUM CHLORIDE 0.9% IV 250 ML 30 ML (13:15)
--- NOTE | 2025-01-04 15:00 | ED_ITS ---
HPI - General Adult General Chief complaint: Recheck/Abnormal Lab/Rx Stated complaint: LOW HEMOGLOBIN Time Seen by Provider: 01/04/25 09:15 History of Present Illness HPI narrative: This is a 79-year-old male sent in for labs. She had screening labs performed by her primary care physician was found have a hemoglobin of around 5.5. Patient was then sent to the ED for evaluation. Patient is denying any source of bleeding. No melena or hematochezia. No use of blood thinners or anticoagulation. She has been feeling more fatigued than usual feeling cold and occasional episodes of dizziness. She denies chest pain difficulty breathing, nausea vomiting diarrhea or history of anemia. Related Data Home Medications ?Medication ?Instructions ?Recorded ?Confirmed ?Last Taken ?Type atorvastatin 10 mg tablet (Lipitor) 10 mg PO HS 10/06/23 01/04/25 01/03/25 History rimegepant 75 mg disintegrating 75 mg PO ONCE PRN migraine headache 11/15/23 01/04/25 Unknown History tablet (Nurtec ODT) carvedilol 12.5 mg tablet mg 01/04/25 01/03/25 History nitroglycerin 0.4 mg sublingual mg 01/04/25 Unknown History tablet Allergies Allergy/AdvReac Type Severity Reaction Status Date / Time fenofibrate Allergy Mild Unknown Verified 11/09/24 11:01 erythromycin base Allergy Unknown STOMACH Verified 11/09/24 11:01 PAIN trichloroacetic acid Allergy Unknown Unknown Verified 11/09/24 11:01 morphine AdvReac Severe Nausea and Verified 11/09/24 11:01 Vomiting fluticasone (From Advair AdvReac Jittery Verified 11/09/24 11:01 Diskus) salmeterol (From Advair AdvReac Jittery Verified 11/09/24 11:01 Diskus) [facility] Past Medical History Medical History COPD (chronic obstructive pulmonary disease) Traumatic brain injury Pulmonary fibrosis Hypertension Surgical History Surgical History Hx of cholecystectomy Family History Family History Father Diabetes mellitus Mother Hypertension Cerebrovascular accident Heart disease Sibling Depression Thyroid disorder Social History Social History Smoking status: Never smoker Alcohol intake: never Substance use: never Substance use type: does not use Do You Feel Safe in your Home?: Yes Lack of Transportation: No Lack of Food: Never True Current Housing: I Have Housing Concerned About Future Housing: No Difficulty Paying Gas/Electric Bills: No Difficulty Paying for Meds: No Currently Unemployed: No Education: Trade/Vocational Certificate Difficulty w/ Childcare or Family Care: No Spiritual care concerns: No Exam 2 Narrative: APPEARANCE: No apparent distress. Head: atraumatic. EYES: EOMI, NOSE: Atraumatic NECK: Trachea midline RESPIRATORY: No increased rate of breathing bibasilar rales CARDIOVASCULAR: RRR, no peripheral edema ABDOMINAL: Non-distended nontender no guarding rebound Digital rectal exam: No zac blood, Hemoccult negative MUSCULOSKELETAl: No obvious deformities NEURO: Alert. Moving 4/4 extremities SKIN:: Warm, dry. Normal color PSYCHIATRIC: Normal affect Course Vital Signs Vital signs: Vital Signs Pulse Rate 79 01/04/25 09:18 Respiratory Rate 20 01/04/25 09:18 Blood Pressure 144/68 H 01/04/25 09:18 Pulse Oximetry 98 01/04/25 09:18 Temperature 98.1 F 01/04/25 14:25 Pulse Rate 60 01/04/25 14:25 Respiratory Rate 18 01/04/25 14:25 Blood Pressure 160/54 H 01/04/25 14:25 Pulse Oximetry 100 01/04/25 14:25 Oxygen Delivery Room Air 01/04/25 09:22 Medical Decision Making [facility] Narrative Medical decision making narrative: -Course: This is a 79-year-old female presenting for low hemoglobin. Vital signs stable. Abdominal exam benign. No blood on digital rectal exam Hemoglobin of 5.5 with a MCV of 67.3. Patient has symptomatic anemia w/ fatigue. Patient will be transferred 2 units of pRBCs. On re-evaluation she is feeling better. They are comfortable following up with primary care physician. She will be discharged on iron supplementation and stool softeners. Given return precautions. -DDX includes but is not limited to: Anemia chronic disease, iron deficiency anemia, GI bleed -Co-morbidities complicating care: TBI, hypertension Independent EKG interpretation: Rhythm [sinus], Rate [68, [place] -[normal], [place] -[normal], QRS [narrow], QTC [normal], T waves -[negative for concerning inversions], ST Segments - [Negative for concerning elevations] Final interpretations: [Normal Sinus Rhythm] Differential Diagnosis Differential Diagnosis: Transfused 2 units of PRBCs. Vital Signs Vital Signs: Vital Signs Pulse Rate 79 01/04/25 09:18 Respiratory Rate 20 01/04/25 09:18 Blood Pressure 144/68 H 01/04/25 09:18 Pulse Oximetry 98 01/04/25 09:18 Temperature 98.1 F 01/04/25 14:25 Pulse Rate 60 01/04/25 14:25 Respiratory Rate 18 01/04/25 14:25 Blood Pressure 160/54 H 01/04/25 14:25 Pulse Oximetry 100 01/04/25 14:25 Oxygen Delivery Room Air 01/04/25 09:22 Lab Data 01/04/25 10:01 01/04/25 10:01 Labs: Lab Results 01/04/25 Range/Units 10:01 WBC 6.3 (4.5-10.0) K/mm3 RBC 3.00 L (4.2-5.4) M/mm3 Hgb 5.5 L* D (12.0-15.0) g/dL Hct 20.2 L* (37.0-47.0) % MCV 67.3 L (80-100) fl MCH 18.3 L (26-34) pg MCHC 27.2 L (32-36) g/dl RDW 20.2 H (11.5-14.5) % Plt Count 175 (150-375) k/mm3 MPV 10.0 (7.4-10.4) fl Immature Gran % (Auto) 0.3 (0-0.5) % Neut % (Auto) 56.4 (45.5-73.1) % Lymph % (Auto) 25.4 (18.3-44.2) % [place] % (Auto) 11.2 H (2.6-8.5) % Eos % (Auto) 5.9 H (0-4.4) % Baso % (Auto) 0.8 (0.2-1.2) % Lymph # (Auto) 1.59 (0.9-3.2) K/mm3 [place] # (Auto) 0.7 H (0.1-0.6) K/mm3 Eos # (Auto) 0.4 H (0-0.3) K/mm3 Baso # (Auto) 0.1 (0.0-0.1) K/mm3 Abs Immat Gran (auto) 0.02 (0.00-0.031) K/mm3 Absolute Neuts (auto) 3.5 (1.3-6.7) K/mm3 Absolute Nucleated RBC 0.000 (0.0-0.012) K/mm3 Band Neutrophils % Not Reportable Nucleated RBC % 0.0 (0.0-0.2) % Platelet Estimate Adequate (Adequate) Hypochromasia 2+ Anisocytosis 1+ Microcytosis 1+ (NORMAL) Schistocytes None seen Sodium 138 (137-145) mmol/L Potassium 4.7 (3.4-5.0) mmol/L Chloride 106 (98-107) mmol/L Carbon Dioxide 23 (22-30) mmol/L Anion Gap 9 (4-12) mmol/L BUN 24 H (7-17) mg/dL Creatinine 0.85 (0.7-1.0) mg/dL Estim Creat Clear Calc 43 ml/min Estimated GFR > 60 (59 - ) Glucose 96 (65-110) mg/dL Calcium 8.4 (8.4-10.2) mg/dL Total Bilirubin 0.4 (0.2-1.3) mg/dL AST 21 (14-36) U/L ALT 11 (6-35) U/L Alkaline Phosphatase 53 (38-126) U/L Total Protein 6.0 L (6.3-8.2) g/dL Albumin 3.5 (3.5-5.1) g/dL Blood Type A Positive Antibody Screen Negative Crossmatch See Detail Discharge Plan Discharge Clinical Impression: Anemia Patient Disposition: Home, Self-Care Condition: Stable Instructions: Antibiotic Form, Anemia (ED) Additional Instructions: You were seen in the emergency department for anemia. Please start taking iron supplementation and stool softeners. Please follow-up with your primary care physician for further management. If you develop rectal bleeding, abdominal pain, dizziness lightheadedness chest pain please return to ED for evaluation. Patient Language: [place] Prescriptions: New ferrous sulfate [Feosol] 325 mg (65 mg iron) tablet 325 mg PO DAILY Qty: 30 0RF docusate calcium 240 mg capsule 240 mg PO DAILY Qty: 30 0RF senna 8.6 mg capsule 8.6 mg PO DAILY Qty: 30 0RF No Action Nurtec ODT 75 mg tablet,disintegrating 75 mg PO ONCE PRN (Reason: migraine headache) Rx Instructions: as a single dose atorvastatin [Lipitor] 10 mg tablet 10 mg PO HS acetaminophen 325 mg Tablet 650 mg PO Q4H PRN (Reason: Pain Rated 1-3) Qty: 30 0RF carvedilol 12.5 mg tablet nitroglycerin 0.4 mg tablet, sublingual Follow-up/Referrals: Argenis,MD Varun [Primary Care Provider] -
== END 2025-01-04 15:30 | disposition home or self-care (01) ==
PROVIDERS: Emergency Provider Emergency Medicine; PCP Internal Medicine
DX: D64.9 Anemia, unspecified (principal); J44.9 Chronic obstructive pulmonary disease, unspecified; I10 Essential (primary) hypertension; J84.10 Pulmonary fibrosis, unspecified; Z87.820 Personal history of traumatic brain injury; Z90.49 Acquired absence of other specified parts of digestive tract; Z79.899 Other long term (current) drug therapy; I51.7 Cardiomegaly
CPT/HCPCS: 36415; 36430; 80053; 85025; 86850; 86900; 86901; 86923; 93005; 96360; 96361; 99285; J7050; P9016